=== PATIENT | female | born 1945 | race Caucasian/White ===

== ENCOUNTER 2018-07-06 13:08 | Observation (INO) ==
[2018-07-06] MEDS ORDERED: ASPIRIN CHEW 324 MG PO STA (13:36)
--- NOTE | 2018-07-06 14:03 | XRay Report ---
XR chest 1V portable CLINICAL HISTORY: Chest Pain COMPARISON STUDY: 11/07/2012 FINDINGS: The bones soft tissues and hemidiaphragms are normal. The cardiomediastinal silhouette is n ormal. The lungs are clear. The pulmonary vasculature is normal. IMPRESSION: Negative chest. The above report was generated using voice recognition software. It may contain grammatical, syntax or spelling errors. Electronically signed by: Trent Ventura M.D. 07/06/2018 2:02 PM
[2018-07-06 14:04] LABS: Basophils # (auto) 0.01 K/uL (0-0.2); Basophils % (auto) 0.2 %; Eosinophils # (auto) 0.05 K/uL (0-0.5); Eosinophils % (auto) 1.2 %; Hematocrit (blood only) 36.5 % (37-47); Hemoglobin 12.2 g/dL (12.0-16.0); Immature Granulocytes # (auto) 0.01 K/uL (0.00-0.02); Immature Granulocytes % (auto) 0.2 %; Lymphocytes % (auto) 44.8 %; Mean Corpuscular Hgb Conc 33.4 g/dL (32-36); Mean Corpuscular Volume 86.3 fL (80-100); Mean Platelet Volume 10.4 fL (7.4-10.4); Monocytes # (auto) 0.25 K/uL (0.11-0.59); Monocytes % (auto) 6.2 %; Neutrophils % (auto) 47.4 %; Platelet Count 170 K/uL (130-400); RDW Standard Deviation 47.4 fL (36.4-46.3); Red Blood Count 4.23 M/uL (4.2-5.4); White Blood Count 4.02 K/uL (4.8-10.8)
[2018-07-06 14:17] LABS: Alanine Aminotransferase 28 U/L (12-78); Albumin Level 3.6 gm/dl (3.4-5.0); Aspartate Aminotransferase 25 U/L (15-37); BUN Creatinine Ratio 23.5 (10-20); Blood Urea Nitrogen 30 mg/dl (7-18); Calcium 8.7 mg/dl (8.5-10.1); Carbon Dioxide 25 mmol/L (21-32); Chloride 110 mmol/L (98-107); Creatinine Clr Calc Pharmacy 38.4 ml/min; Est GFR (African American) 47.4; Est GFR (Non-African American) 40.9; Glucose 96 mg/dl (70-99); Potassium 4.2 mmol/L (3.5-5.1); Sodium 140 mmol/L (136-145)
[2018-07-06 14:22] LABS: Alkaline Phosphatase 76 U/L (45-117); Bilirubin,Total 0.4 mg/dl (0.2-1); Globulin 3.5 gm/dl (2.5-4.0); Total Protein 7.1 gm/dl (6.4-8.2); Troponin I < 0.015 ng/ml (0-0.045)
--- NOTE | 2018-07-06 16:30 | History & Physical Report ---
Date of Service July 06, 2018 Assessment & Plan (1) Chest pain: Ongoing issue for months to possibly even years - questionable worsening with exertion. New LBBB on EKG today but negative troponin. Cardiac cath in 2011 negative but no cardiac work-up since then. - Observe on telemetry - repeat EKG in AM and with chest pain. - Serial troponin x 3 - Consult cardiology to consider stress test tomorrow - will make pt NPO after midnight in anticipation of this possibility - Check ECHO - May also have a component of esophageal reflux - consult GI for additional recommendations. 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 (4) Elevated lipase: Unclear significance - pt is having some non-specific GI symptoms but essentially benign abdominal exam and asking to eat - Will repeat in AM - Heart healthy diet for now but will d/c if any abdominal pain, nausea or vomiting (5) Dyslipidemia: On atorvastatin twice a week - unable to tolerate higher dosing due to myalgias - Check lipid panel today - Continue statin (6) Acquired hypothyroidism: - Check TSH with reflexive T4 - Continue levothyroxine at home dose for now (7) History of diabetes mellitus resolved following bariatric surgery: Pt reports resolution since surgery in 2007 - Check A1c this admission since has not been checked since 2018 (5.6 in July 2017) (8) Essential hypertension: BP elevated upon presentation today - Continue home losartan and monitor Plan: Plan - Lashell Liang PA-C: Pt reviewed with collaborating physician, Dr. Cyr. Plan of care discussed and as outlined above. Patient to followed starting tomorrow by Dr. Nash Liang PA-C History of Present Illness Primary Care Provider: PCP - Erendira Knapp DO This is a 73 y/o female with a PMH of hypertension and dyslipidemia who was referred to the ED today from her PCP office where she presented with progressive "gas" and regurgitation as well as intermittent left chest pain. Pt has difficulty quantifying duration of symptoms but reports intermittent left chest pain "for a long time" - it is often associated with "overexertion" but not always. Pain may radiate to left arm or left neck although she may also have pain in these areas independent of the chest pain. The left chest pains are described as "shooting" and only last seconds at a time. She also notes left arm "heaviness" that may occur after exertion and last up to 30-60 minutes. Symptoms may be relieved with rest. She denies associated cough, wheezing, dyspnea, nausea, vomiting. Last night she reports "I didn't feel well " and had "lots of gas" although denies abdominal pain. She reports that she did not sleep well due to symptoms. This morning she noticed increased regurgitation and eructation so she scheduled with PCP. In PCP office, she was noted to have a new LBBB so referred to the ED. ED work-up confirmed the EKG changes but troponin was negative. Pt did have another episode of left chest discomfort in the ED but it resolved without significant intervention and she is currently pain-free. Pt last underwent cardiac work-up in [place] in 2011 with stress test that was apparently abnormal but cardiac cath showing angiographically insignificant CAD. Pt had a history of diabetes for several years but reports this resolved after her gastric bypass surgery in 2007 and she does not take any medications for this at this time. She does check her sugars occasionally at home and reports "they've been good" but did not elaborate further. She reports that she is very active and symptoms have not significantly changed that. 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 Allergies Allergy/AdvReac Type Severity Reaction Status Date / Time BEES Allergy Anaphylaxis Uncoded 07/06/18 15:54 Home Medications Home Medications Medication Instructions Recorded Confirmed Type PNV cmb#95-ferrous fumarate-FA 1 tab PO DAILY 07/06/18 07/06/18 History [] atorvastatin [Lipitor] 10 mg PO MONTHUR 07/06/18 07/06/18 History calcium carbonate [Calcium 600] 600 mg PO DAILY 07/06/18 07/06/18 History cyanocobalamin (vitamin B-12) 500 mcg PO DAILY 07/06/18 07/06/18 History [Vitamin B-12] levothyroxine [Synthroid] 50 mcg PO DAILY 07/06/18 07/06/18 History losartan [Cozaar] 100 mg PO DAILY 07/06/18 07/06/18 History Past Med/Surg History Family History Other No significant family history Social History Current Living Situation: Spouse Other Information That Helps Us Care for You: No Feels Safe at Home: Yes Safety Concerns: Feels Safe At This Time Smoking Status: Never smoker Do You Dip or Chew Tobacco: No Hx Alcohol Use: Yes Alcohol type: wine Alcohol Intake Frequency: holidays/ special occasions only Alcohol Intake Frequency Comment: 1-2 glasses of wine 1- 2 days per week Hx Substance Use: No Beliefs That Will Affect Care: None Tray Drier Required: No Review of Systems All systems reviewed & are unremarkable except as noted in HPI & below Constitutional: no fever, no chills, no sweats, no weakness, no weight loss and no weight gain Eyes: no diplopia, not seeing flashes, no spots in vision and no worsening vision Ear, Nose, Mouth, Throat: + hoarseness ("my voice comes and goes"); no ear pain , no dizziness, no nasal congestion, no sore throat, no dysphagia and no pain with swallowing Respiratory: no cough, no chest congestion, no dyspnea, no hemoptysis and no wheezing Cardiovascular: + chest pain (left, brief, see HPI), + radiating jaw, neck or arm pain (see HPI) and + palpitations (episode of intermittent racing heart within the past few days); no lightheadedness, no syncope and no calf pain Gastrointestinal: + belching, + bloating, + excessive flatulence and + constipation (describes small hard stools at times - has used Miralax in the past); no abdominal pain, no vomiting, no hematemesis, no pain with swallowing, no cramping, no change in bowel habits, no blood in stools and no melena Genitourinary (Female): no dysuria, no urinary frequency, no decreased urination , no hematuria and no flank pain Musculoskeletal: + neck pain (occasional neck pain (mostly on left) and stiffness) and + swelling (of left hand occasionally - attributes to arthritis) ; no myalgia and no muscle weakness Integumentary: no rash, no skin ulcer and no unusual bruising Neurologic: no gait abnormality, no falls, no generalized weakness, no seizure- like activity, no dizziness, no syncope and no headache(s) Physical Exam 2 Vital Signs (Past 24 Hours): Last Vital Signs Temp 36.7 C 07/06/18 13:11 Pulse 57 L 07/06/18 14:03 Resp 18 07/06/18 13:11 BP 185/97 H 07/06/18 13:11 Pulse Ox 97 07/06/18 14:03 Constitutional: WD/WN, vitals as above Eyes: PERRL, conjunctivae normal, anicteric sclerae ENMT: external ear and nose normal, oropharynx normal Neck: trachea midline Respiratory: no respiratory distress and no labored breathing Auscultation : lungs clear to auscultation bilaterally; no rales, no rhonchi and no wheezes Cardiovascular: Rate/Rhythm: regular rate and regular rhythm Heart Sounds: no click, no gallop and no murmur Extremities: normal capillary refill; no calf tenderness and no pedal edema No significant chest wall tenderness to palpation Gastrointestinal (Abdomen): Inspection/Auscultation: normal bowel sounds; abdomen not distended Percussion/Palpation: abdomen soft; abdomen nontender and no guarding Musculoskeletal: no cyanosis or clubbing, extremities motor strength 5/5 Skin: no rashes, warm and dry normal turgor; no jaundice Neurologic: moves all extremities; no focal motor deficits Psychiatric: A+Ox3, euthymic affect Results & Data Laboratory Results Laboratory Results - last 24 hr 07/06/18 07/06/18 13:45 13:45 WBC 4.02 L RBC 4.23 Hgb 12.2 Hct 36.5 L MCV 86.3 MCH 28.8 MCHC 33.4 RDW Std Deviation 47.4 H RDW Coeff of Rocco 15.0 H Plt Count 170 MPV 10.4 Immature Gran % (Auto) 0.2 Neut % (Auto) 47.4 Lymph % (Auto) 44.8 Upson % (Auto) 6.2 Eos % (Auto) 1.2 Baso % (Auto) 0.2 Immature Gran # (Auto) 0.01 Neut # (Auto) 1.90 Lymph # (Auto) 1.80 Upson # (Auto) 0.25 Eos # (Auto) 0.05 Baso # (Auto) 0.01 Sodium 140 Potassium 4.2 Chloride 110 H Carbon Dioxide 25 Anion Gap 5.0 BUN 30 H Creatinine 1.28 H Est Cr Clr Drug Dosing 38.4 Est GFR ( Amer) 47.4 Est GFR (Non-Af Amer) 40.9 BUN/Creatinine Ratio 23.5 H Glucose 96 Calcium 8.7 Total Bilirubin 0.4 AST 25 ALT 28 Alkaline Phosphatase 76 Troponin I < 0.015 Total Protein 7.1 Albumin 3.6 Globulin 3.5 Albumin/Globulin Ratio 1.0 Lipase 456 H Diagnostic Findings CXR 07/06/18 - IMPRESSION: Negative chest. Medications Administered Discontinued Medications Aspirin (Aspirin) 324 mg PO NOW STA Stop: 07/06/18 13:37 Last Admin: 07/06/18 14:02 Dose: 324 mg Code Status & VTE Plan Code Status full resuscitation VTE Prophylaxis Plan VTE Prophylaxis will be ordered: Yes Supervising Physician Co-Signing Physician Notes HISTORY: Record reviewed. Patient interviewed and examined. Care coordinated with Lashell Liang PA-C. Please refer to her documentation for patient's history. Briefly, 73-year-old female with history of hypertension, dyslipidemia, and diabetes. History of cardiac catheterization several years ago which reportedly did not show any significant disease. Presented to ED today with chest pain. Chest pain described as substernal discomfort that radiates to her neck. She has noticed intermittent hoarseness. Chest pain is not exertional nature, although she has some left arm heaviness with activity. No associated shortness of breath, nausea, vomiting, diaphoresis. EXAM: General- no distress Lungs- clear to auscultation; no respiratory distress Cardiovascular- RRR; no murmur; no gallop; no JVD; no pretibial edema Abdomen- + bowel sounds, soft, nontender Extremities- no cyanosis; no calf tenderness Neuro- alert, oriented Skin- warm & dry DATA: Serum troponin less than 0.015. Random glucose 96. Other lab studies as noted. Chest x-ray was unremarkable. EKG performed at 1319 reviewed and demonstrated normal sinus rhythm at 70 / minute, left bundle branch block. Left bundle branch block new compared to tracing performed on 11/07/12. ASSESSMENT AND PLAN: Chest pain as described above. Initial troponin normal. EKG shows sinus rhythm with left bundle branch block, new compared to 2013. Suspect that symptoms are due to esophageal disease, the patient has multiple risk factors for ischemic heart disease and she does have some left arm heaviness with exertion. Check serial troponins. Consult Cardiology. Empiric PPI. Consult GI. Patient has been experiencing intermittent hoarseness which could possibly be secondary to GERD. Outpatient ENT evaluation recommended. Please refer to MARYSE Liang's documentation for discussion of other issues. _ (1) Chest pain Chest pain type: unspecified Ischemic chest pain type: Qualified Code(s): R07.9 - Chest pain, unspecified
[2018-07-06] MEDS ORDERED: NITROGLYCERIN SL 0.4 MG/TAB TAB SL PRN (18:14)
[2018-07-06] MEDS ORDERED: ACETAMINOPHEN 325 MG TAB PO PRN (18:14)
--- NOTE | 2018-07-06 19:41 | Emergency Department Note ---
Entered by Paloma Richardson acting as a scribe for Salas Romero DO History of Present Illness General Chief complaint: Cardiac Assessment Stated complaint: ABNORMAL EKG,CHEST PAIN OFF AND ON Source: patient Mode of arrival: ambulatory Limitations: no limitations History of Present Illness Provider complaint: Chest pain Onset (ago): day(s) 1 Location: chest Radiation: other (left arm ) Severity: moderate Pain Consistency: + intermittent Maximum Pain Intensity: 2 Quality: + sharp Associated symptoms: + denies other symptoms Patient is a 73 year old female presenting to the ED with CP beginning last night. Patient states that she felt ill last night, and began to have intermittent chest pain. She notes pain worsened while at work today, noting she had associated gas. Patient called her PCP, who recommended reporting to ED for further evaluation. Chest pain is described as sharp, and lasting a few minutes in length. She notes that her last episode while on the way to the ED. Patient is also complaining of associated left arm pain, but denies any jaw pain. Pain does worsen with exertion, and improves with breathing. Patient denies any nausea, vomiting, fevers, or any other sx at this time. She shares that she does take medication for thyroid and cholesterol. Patient shares she did have a stress test and catherization in 2011, but both were unremarkable. She lastly denies a history of [place]. Home Medications Home Medications Medication Instructions Recorded Confirmed Type PNV cmb#95-ferrous fumarate-FA 1 tab PO DAILY 07/06/18 07/06/18 History [] atorvastatin [Lipitor] 10 mg PO MONTHUR 07/06/18 07/06/18 History calcium carbonate [Calcium 600] 600 mg PO DAILY 07/06/18 07/06/18 History cyanocobalamin (vitamin B-12) 500 mcg PO DAILY 07/06/18 07/06/18 History [Vitamin B-12] levothyroxine [Synthroid] 50 mcg PO DAILY 07/06/18 07/06/18 History losartan [Cozaar] 100 mg PO DAILY 07/06/18 07/06/18 History Allergies Allergy/AdvReac Type Severity Reaction Status Date / Time BEES Allergy Anaphylaxis Uncoded 07/06/18 15:54 Past Med/Surg History Family History Other No significant family history Social History Current Living Situation: Spouse Other Information That Helps Us Care for You: No Feels Safe at Home: Yes Safety Concerns: Feels Safe At This Time Smoking Status: Never smoker Do You Dip or Chew Tobacco: No Hx Alcohol Use: Yes Alcohol type: wine Alcohol Intake Frequency: holidays/ special occasions only Alcohol Intake Frequency Comment: 1-2 glasses of wine 1- 2 days per week Hx Substance Use: No Beliefs That Will Affect Care: None 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 and A total of 10 systems reviewed and were otherwise negative Physical Exam Vital Signs Vital Signs - 24 hr 07/06/18 13:11 07/06/18 14:03 07/06/18 14:06 Temperature 36.7 C Temperature Source Oral Sepsis Recent Fever Within 48 Hours No Sepsis New/Unexplained Change in Mental Status No Sepsis Action Taken by Nursing No Action Required Pulse Rate 92 H 57 L 66 Pulse Rate [Finger] Pulse Rate from SpO2 Sensor 72 Pulse Rhythm Regular Pulse Rhythm [Finger] Respiratory Rate 18 19 Respiratory Effort / Characteristics Non-Labored Spontaneous Respiratory Depth Normal Respiratory Pattern Regular Blood Pressure 185/97 H Blood Pressure [Left Arm] Blood Pressure Mean 126 Blood Pressure Mean [Left Arm] Blood Pressure Position Sitting Blood Pressure Position [Left Arm] Pulse Oximetry 98 97 99 Oxygen Delivery Method Room Air 07/06/18 14:30 07/06/18 15:00 07/06/18 15:30 Temperature Temperature Source Sepsis Recent Fever Within 48 Hours Sepsis New/Unexplained Change in Mental Status Sepsis Action Taken by Nursing Pulse Rate 75 64 70 Pulse Rate [Finger] Pulse Rate from SpO2 Sensor 60 61 64 Pulse Rhythm Pulse Rhythm [Finger] Respiratory Rate 24 17 19 Respiratory Effort / Characteristics Respiratory Depth Respiratory Pattern Blood Pressure Blood Pressure [Left Arm] Blood Pressure Mean Blood Pressure Mean [Left Arm] Blood Pressure Position Blood Pressure Position [Left Arm] Pulse Oximetry 99 100 98 Oxygen Delivery Method 07/06/18 16:00 07/06/18 16:30 07/06/18 17:00 Temperature Temperature Source Sepsis Recent Fever Within 48 Hours Sepsis New/Unexplained Change in Mental Status Sepsis Action Taken by Nursing Pulse Rate 61 65 Pulse Rate [Finger] 60 Pulse Rate from SpO2 Sensor 59 L 64 Pulse Rhythm Pulse Rhythm [Finger] Respiratory Rate 18 22 17 Respiratory Effort / Characteristics Respiratory Depth Respiratory Pattern Blood Pressure Blood Pressure [Left Arm] 145/75 H Blood Pressure Mean Blood Pressure Mean [Left Arm] 98 Blood Pressure Position Blood Pressure Position [Left Arm] Pulse Oximetry 99 100 99 Oxygen Delivery Method Room Air 07/06/18 17:09 07/06/18 18:15 Temperature 36.9 C Temperature Source Oral Sepsis Recent Fever Within 48 Hours Sepsis New/Unexplained Change in Mental Status Sepsis Action Taken by Nursing Pulse Rate Pulse Rate [Finger] 61 Pulse Rate from SpO2 Sensor Pulse Rhythm Pulse Rhythm [Finger] Regular Respiratory Rate 20 Respiratory Effort / Characteristics Non-Labored Respiratory Depth Normal Respiratory Pattern Regular Blood Pressure Blood Pressure [Left Arm] 142/82 H 159/70 H Blood Pressure Mean Blood Pressure Mean [Left Arm] 102 99 Blood Pressure Position Blood Pressure Position [Left Arm] Sitting Pulse Oximetry 96 Oxygen Delivery Method Room Air GENERAL: Sitting up in bed, alert, well appearing, well nourished, no distress, non-toxic EYE EXAM: normal conjunctiva. OROPHARYNX: no exudate, no erythema, lips, buccal mucosa, and tongue normal and mucous membranes are moist NECK: supple, no nuchal rigidity, no adenopathy, non-tender LUNGS: Clear to auscultation. Normal chest wall mechanics HEART: no murmurs, S1 normal and S2 normal ABDOMEN: abdomen soft, non-tender, normo-active bowel, sounds, no masses, no rebound or guarding. BACK: Back is symmetrical on inspection and there is no deformity, no midline tenderness, no CVA tenderness. SKIN: no rashes and no bruising UPPER EXTREMITIES: upper extremities are grossly normal. LOWER EXTREMITIES: No pitting edema. Calves equal bilterally. NEURO EXAM: Normal sensorium, cranial nerves II-XII grossly intact, normal speech, no gross weakness of arms, no gross weakness of legs. Course Vital signs were reviewed and showed hypertension. The patients medical record was reviewed The above diagnostic studies were performed and reviewed. ED treatments and interventions as stated above. 1328: The patient was evaluated in room C02B. A complete history and physical examination was performed. 1450: Upon reevaluation, the patient is doing well. .I discussed my findings with the patient and she understands and agrees with the treatment plan. Based on the patients age, coexisting illnesses, exam and lab findings the decision to treat as an inpatient was made. 1457: Discussed patient case with Tiff Liang PA-C, who accepts patient for admission. The patient remained stable while under my care. The patient will be evaluated for further management. Administered Medications Discontinued Medications Aspirin (Aspirin) 324 mg PO NOW STA Stop: 07/06/18 13:37 Last Admin: 07/06/18 14:02 Dose: 324 mg Medical Decision Making Differential Diagnosis Differential diagnoses includes but is not limited to acute coronary syndrome, myocardial infarction, pericarditis, pulmonary embolus, aortic dissection, pneumonia, pneumothorax, musculoskeletal, shingles, esophageal. Medical Records Attestation: I reviewed the patient's medical records. Home Medications Current Medication List: was personally reviewed by me Laboratory Data Attestation: I reviewed the patient's lab results. Result diagrams: 07/06/18 13:45 07/06/18 13:45 Lab Results 07/06/18 07/06/18 Range/Units 13:45 13:45 WBC 4.02 L (4.8-10.8) K/uL RBC 4.23 (4.2-5.4) M/uL Hgb 12.2 (12.0-16.0) g/dL Hct 36.5 L (37-47) % MCV 86.3 (80-100) fL MCH 28.8 (25-34) pg MCHC 33.4 (32-36) g/dL RDW Std Deviation 47.4 H (36.4-46.3) fL RDW Coeff of Rocco 15.0 H (11.5-14.5) % Plt Count 170 (130-400) K/uL MPV 10.4 (7.4-10.4) fL Immature Gran % (Auto) 0.2 % Neut % (Auto) 47.4 % Lymph % (Auto) 44.8 % Barnes % (Auto) 6.2 % Eos % (Auto) 1.2 % Baso % (Auto) 0.2 % Immature Gran # (Auto) 0.01 (0.00-0.02) K/uL Neut # (Auto) 1.90 (1.4-6.5) K/uL Lymph # (Auto) 1.80 (1.2-3.4) K/uL Barnes # (Auto) 0.25 (0.11-0.59) K/uL Eos # (Auto) 0.05 (0-0.5) K/uL Baso # (Auto) 0.01 (0-0.2) K/uL Sodium 140 (136-145) mmol/L Potassium 4.2 (3.5-5.1) mmol/L Chloride 110 H (98-107) mmol/L Carbon Dioxide 25 (21-32) mmol/L Anion Gap 5.0 (3-11) BUN 30 H (7-18) mg/dl Creatinine 1.28 H (0.6-1.2) mg/dl Est Cr Clr Drug Dosing 38.4 ml/min Est GFR ( Amer) 47.4 Est GFR (Non-Af Amer) 40.9 BUN/Creatinine Ratio 23.5 H (10-20) Glucose 96 (70-99) mg/dl Calcium 8.7 (8.5-10.1) mg/dl Total Bilirubin 0.4 (0.2-1) mg/dl AST 25 (15-37) U/L ALT 28 (12-78) U/L Alkaline Phosphatase 76 (45-117) U/L Troponin I < 0.015 (0-0.045) ng/ml Total Protein 7.1 (6.4-8.2) gm/dl Albumin 3.6 (3.4-5.0) gm/dl Globulin 3.5 (2.5-4.0) gm/dl Albumin/Globulin Ratio 1.0 (0.9-2) Lipase 456 H (73-393) U/L Imaging Data Radiologist's Impression: XR chest 1V portable CLINICAL HISTORY: Chest Pain COMPARISON STUDY: 11/07/2012 FINDINGS: The bones soft tissues and hemidiaphragms are normal. The cardiomediastinal silhouette is normal. The lungs are clear. The pulmonary vasculature is normal. IMPRESSION: Negative chest. The above report was generated using voice recognition software. It may contain grammatical, syntax or spelling errors. Electronically signed by: Trent Ventura M.D. 07/06/2018 2:02 PM ECG Data Attestation: I personally reviewed and interpreted this ECG as follows: Indication: chest pain Rate (beats per minute): 66 Rhythm: sinus rhythm Findings: + other (normal axis), + LBBB and + ST depression (in inferior and lateral leads) Comparison ECG Date: from (11/07/12) Change: the following changes noted (LBBB and ST changes new) Blood Pressure Blood Pressure Findings: Elevated blood pressure Blood Pressure Disposition: elevated BP felt to be situational MDM Narrative Patient is a 73-year-old female that presents the ER for chest pain located on the left side of her chest associate with some intermittent left arm pain. Symptoms are completely resolved upon presentation. Patient was seen at the PCP and had an EKG done which showed a new left bundle branch block. She was slightly hypertensive in the ER. Labs were obtained and showed no significant leukocytosis or anemia. BMP along with LFTs bilirubin and lipase was fairly unremarkable. Troponin was negative. Chest x-ray was unremarkable. EKG did show left bundle. She was a symptomatically in the ER. Family and patient were updated at bedside discussed with the hospitalist for observation. Discussed with Pt concerning signs and symptoms to watch out for. Pt was instructed to follow up with their PCP and discussed with the patient their option to return to the ED at anytime for persistent or worsening symptoms. The appropriate anticipatory guidance and out-patient management, including indications for return to the emergency department, were explained at length to the patient and understood. Impression & Plan Chest pain, Complete left bundle branch block (LBBB) determined by ECG Discharge Plan Visit Data *Final* Discharge Date/Time: 07/06/18 18:13 Chief Complaint: Cardiac Assessment Stated Complaint: ABNORMAL EKG,CHEST PAIN OFF AND ON ED Provider: Salas Romero Discharge Problem: Chest pain, Complete left bundle branch block (LBBB) determined by ECG Patient Disposition: Admitted As Inpatient Discharge Instructions Interventions: ED Discharge Assessment Last Done: 07/06/18 17:39 The scribe's documentation has been prepared under my direction and personally reviewed by me in its entirety. I confirm that the note above accurately reflects all work, treatment, procedures, and medical decision making performed by me.
[2018-07-06 20:40] LABS: Chol HDL Ratio 3; Cholesterol 175 mg/dl (0-200); HDL Cholesterol 70 mg/dl; LDL Cholesterol Calculated 87 mg/dl; Triglycerides 92 mg/dl (0-150); Troponin I < 0.015 ng/ml (0-0.045); VLDL Cholesterol 18 mg/dl
[2018-07-07 05:26] LABS: Alanine Aminotransferase 25 U/L (12-78); Albumin Level 3.2 gm/dl (3.4-5.0); Alkaline Phosphatase 68 U/L (45-117); Aspartate Aminotransferase 24 U/L (15-37); Bilirubin,Total 0.3 mg/dl (0.2-1); Blood Urea Nitrogen 34 mg/dl (7-18); Calcium 8.4 mg/dl (8.5-10.1); Carbon Dioxide 24 mmol/L (21-32); Chloride 110 mmol/L (98-107); Creatinine Clr Calc Pharmacy 31.6 ml/min; Est GFR (African American) 39.7; Est GFR (Non-African American) 34.3; Globulin 3.1 gm/dl (2.5-4.0); Glucose 86 mg/dl (70-99); Potassium 4.3 mmol/L (3.5-5.1); Sodium 140 mmol/L (136-145); Total Protein 6.3 gm/dl (6.4-8.2); Troponin I < 0.015 ng/ml (0-0.045)
[2018-07-07 05:28] LABS: Basophils # (auto) 0.01 K/uL (0-0.2); Basophils % (auto) 0.3 %; Eosinophils % (auto) 2.5 %; Hematocrit (blood only) 34.5 % (37-47); Hemoglobin 11.5 g/dL (12.0-16.0); Lymphocytes # (auto) 1.96 K/uL (1.2-3.4); Lymphocytes % (auto) 49.6 %; Mean Corpuscular Hgb Conc 33.3 g/dL (32-36); Mean Corpuscular Volume 86.3 fL (80-100); Mean Platelet Volume 10.1 fL (7.4-10.4); Monocytes # (auto) 0.34 K/uL (0.11-0.59); Monocytes % (auto) 8.6 %; Neutrophils # (auto) 1.54 K/uL (1.4-6.5); Platelet Count 148 K/uL (130-400); RDW Coefficient of Variation 14.8 % (11.5-14.5); White Blood Count 3.95 K/uL (4.8-10.8)
[2018-07-07 06:27] LABS: Estimated Average Glucose 128 mg/dl; Hemoglobin A1C 6.1 % (4.5-5.6)
[2018-07-07] MEDS ORDERED: LEVOTHYROXINE SODIUM 50 MCG TABLET PO SCH (06:30)
[2018-07-07] MEDS ORDERED: LOSARTAN POTASSIUM 50 MG TAB PO SCH (09:00)
[2018-07-07] MEDS ORDERED: PANTOprazole 40 MG TAB PO SCH (09:00)
[2018-07-07] MEDS ORDERED: REGADENOSON 0.4 MG/5 ML SYR IV ONE (10:01)
--- NOTE | 2018-07-07 13:01 | Cardiology Consultation ---
Date of Consultation July 07, 2018 Assessment & Plan (1) Chest pain: (2) Complete left bundle branch block (LBBB) determined by ECG: Left bundle branch block, newly recognized, but really of unknown chronicity, as her most recent previous tracing was from several years ago. Cardiac enzymes have been negative on a serial basis. The patient describes dyspepsia present with frequent belching that is nonexertional. Echocardiogram reveals a mild septal wall motion abnormality consistent with left bundle branch block with preserved LVEF. We will proceed with a pharmacologic nuclear stress test which is the test of choice in the setting of left bundle branch block. Further recommendations be forthcoming. History of Present Illness Attending Physician: Ashley Cao DO History of Present Illness Allie Plasencia is a 73 year old female seen in cardiology consultation per the [facility] of Matt[facility] the [facility] of atypical chest pain and newly recognized left bundle branch block. The patient was referred from her primary care provider's office yesterday. She describes frequent belching. She notes that this is not necessarily associated with meals is currently she is without food and she feels that she has this gas and is belching at present. On my interview with her, she does not feel that she has significant exertional symptoms. Past medical history: History of gastric bypass surgery in 2007 Stage III chronic kidney disease. Dyslipidemia for which he takes atorvastatin. Hypothyroidism Family History: She states her sister had a valve surgery but she does not know the specifics. She believes her mother had a heart surgery, but she is unable to determine for me whether it was a valve surgery or a bypass surgery, and she had a stroke afterward Allergies Allergy/AdvReac Type Severity Reaction Status Date / Time BEES Allergy Anaphylaxis Uncoded 07/06/18 15:54 Home Medications Home Medications Medication Instructions Recorded Confirmed Type PNV cmb#95-ferrous fumarate-FA 1 tab PO DAILY 07/06/18 07/06/18 History [] atorvastatin [Lipitor] 10 mg PO MONTHUR 07/06/18 07/06/18 History calcium carbonate [Calcium 600] 600 mg PO DAILY 07/06/18 07/06/18 History cyanocobalamin (vitamin B-12) 500 mcg PO DAILY 07/06/18 07/06/18 History [Vitamin B-12] levothyroxine [Synthroid] 50 mcg PO DAILY 07/06/18 07/06/18 History losartan [Cozaar] 100 mg PO DAILY 07/06/18 07/06/18 History Patient History Family History Other No significant family history Social History Razor Sharpener Required: No Beliefs That Will Affect Care: None Current Living Situation: Spouse Other Information That Helps Us Care for You: No Feels Safe at Home: Yes Safety Concerns: Feels Safe At This Time Smoking Status: Never smoker Hx Alcohol Use: Yes Hx Substance Use: No Review of Systems 10 point review of systems is reviewed and is negative with the exception of that above Physical Exam Vital Signs (Past 24 Hours): Last Vital Signs Temp 37.2 C 07/07/18 11:16 Pulse 69 07/07/18 11:16 Resp 16 07/07/18 11:16 BP 137/78 07/07/18 11:16 Pulse Ox 96 07/07/18 11:16 Physical Exam: General: no acute distress and stated age Eyes: conjunctiva are pink and non-injected, sclera clear Neck: normal jugular venous pulse, no hepatojugular reflux Chest: normal shape and normal respiratory effort Lungs: clear to auscultation and percussion Cardiac Exam: - regular heart sounds, no murmurs, rubs, or gallops, no jugular venous distention Abdomen: abdomen soft, non-tender, no abnormal masses and no hepatosplenomegaly Extremities: no edema and no cyanosis Neuro:awake, coversant, follows commands, no focal motor deficits Psych: appropriate affect and insight. Results & Data Laboratory Results Cardiac Enzymes 07/06/18 07/06/18 07/07/18 Range/Units 13:45 19:51 01:39 AST 25 24 (15-37) U/L Troponin I < 0.015 < 0.015 < 0.015 (0-0.045) ng/ml Lipids 07/06/18 Range/Units 19:51 Triglycerides 92 (0-150) mg/dl Cholesterol 175 (0-200) mg/dl HDL Cholesterol 70 mg/dl Cholesterol/HDL Ratio 3 CBC 07/06/18 07/07/18 Range/Units 13:45 01:39 WBC 4.02 L 3.95 L (4.8-10.8) K/uL RBC 4.23 4.00 L (4.2-5.4) M/uL Hgb 12.2 11.5 L (12.0-16.0) g/dL Hct 36.5 L 34.5 L (37-47) % Plt Count 170 148 (130-400) K/uL Neut # (Auto) 1.90 1.54 (1.4-6.5) K/uL Lymph # (Auto) 1.80 1.96 (1.2-3.4) K/uL [place] # (Auto) 0.25 0.34 (0.11-0.59) K/uL Eos # (Auto) 0.05 0.10 (0-0.5) K/uL Baso # (Auto) 0.01 0.01 (0-0.2) K/uL Comprehensive Metabolic Panel 07/06/18 07/07/18 Range/Units 13:45 01:39 Sodium 140 140 (136-145) mmol/L Potassium 4.2 4.3 (3.5-5.1) mmol/L Chloride 110 H 110 H (98-107) mmol/L Carbon Dioxide 25 24 (21-32) mmol/L BUN 30 H 34 H (7-18) mg/dl Creatinine 1.28 H 1.48 H (0.6-1.2) mg/dl Glucose 96 86 (70-99) mg/dl Calcium 8.7 8.4 L (8.5-10.1) mg/dl AST 25 24 (15-37) U/L ALT 28 25 (12-78) U/L Alkaline Phosphatase 76 68 (45-117) U/L Total Protein 7.1 6.3 L (6.4-8.2) gm/dl Albumin 3.6 3.2 L (3.4-5.0) gm/dl Intake and Output 07/06/18 07/07/18 07/07/18 22:59 06:59 14:59 Intake Total 360 / 360 0 / 360 Balance 360 / 360 0 / 360 Intake: Oral 360 / 360 0 / 360 Other: Other Intake Source npo # Unmeasured Voids 1 Weight 77 kg 76.8 kg Diagnostic Findings EKG performed 07/06/18 at 1319 revealed normal sinus rhythm with left bundle branch block at 66 bpm. QRS duration was 124 ms. When compared to the prior tracing performed November 07, 2012 left bundle branch block is now present. An echocardiogram was performed earlier today and reviewed independently by the undersigned with findings of mild concentric left ventricular hypertrophy. The septal wall motion is consistent with conduction abnormality without other regional wall motion abnormalities, normal LVEF in the range of 55-60%. Mild tricuspid regurgitation was present. Mild aortic valve sclerosis without stenosis was present. Medications Administered Current Inpatient Medications Acetaminophen (Tylenol) 650 mg PO Q4H PRN PRN Reason: Pain or Fever Stop: 08/05/18 18:13 Atorvastatin Calcium (Lipitor) 10 mg PO MoTh@0900 [facility] Stop: 08/07/18 08:59 Levothyroxine Sodium (Synthroid) 50 mcg PO DAILYBB [facility] Stop: 08/06/18 06:29 Last Admin: 07/07/18 06:00 Dose: 50 mcg Documented by: Losartan Potassium (Cozaar) 100 mg PO DAILY [facility] Stop: 08/06/18 08:59 Last Admin: 07/07/18 09:10 Dose: 100 mg Documented by: Nitroglycerin (Nitrostat) 0.4 mg SL UD PRN PRN Reason: Chest Pain Stop: 08/05/18 18:13 Pantoprazole Sodium (Protonix) 40 mg PO QAM [place] Stop: 07/10/18 09:01 Last Admin: 07/07/18 09:07 Dose: 40 mg Documented by: (1) Chest pain Chest pain type: unspecified Qualified Code(s): R07.9 - Chest pain, unspecified
--- NOTE | 2018-07-07 13:36 | Gastrointestinal Consultation ---
Date of Consultation July 07, 2018 Assessment & Plan (1) Chest pain: (2) GERD (gastroesophageal reflux disease): (3) S/P gastric bypass: Pt is a 73 y/o female currently getting evaluated for L sided chest pain and new finding of LBBB on EKG. She reports chronic symptoms of eructations, regurgitations w/o abd pain, n/v, dysphagia or odynophagia. Does have hx of gastric bypass in 2007 (Dr. Galicia from [facility]) but denies uses of NSAIDs, ASA, tobacco products. - I think that she eventually would benefit from EGD evaluation but won't recommend this until she has completed her cardiac workup and cleared from cardiology standpoint. Non urgent EGD and can be done in outpt setting after DC - Consider esophagram while inpt if further evaluation needed to r/o GERD, hiatal hernia. But again her cardiac workup takes priority - Protonix 40mg daily. Supervising Physician Co-Signing Physician Notes I have seen and examined the patient and discussed the management with SUSIE Wilks. 73 yo fm with a history of prior rygb, hl, solitary kidney with mild ckdz, for which GI is consulted for reflux, regurgitation. She is currently undergoing a cardiac work-up given new findings of LBBB, nuclear stress test pending today. Would try a trial of PPI (Protonix 40 mg) once daily. Agree with esophagram while inpatient given current cardiac issues. Outpatient EGD likely. Agree with assessment and plan as per Danii's documentation. History of Present Illness Reason for Consultation: Chest pain ? reflux Requesting Physician: Dr. Ashley Cao Attending Physician: Dr. Mis Pool History of Present Illness Pt is a 73 y/o female w PMHx of HTN, dyslipidemia, hypothyroidism who was referred by PCP for intermittent L chest pain sometimes w radiation to L arm and new finding of L bundle branch block in EKG. Repeat EKG confirmed changes but negative troponin. She just had echocardiogram this AM which showed septal motion abnormality and mild TR, AV stenosis w/o sclerosis. GI consulted as pt had been c/o regurgitation and eructation which she report had been going on for years. She has hx of gastric bypass in 2007. Denies NSAIDs, ASA, anticoagulation, tobacco. ETOH intake 2 glasses of wine in weekends. She denies any overt dysphagia, or painful swallowing, n/v, abd pain, weight loss. She does notice associated voice loss and hoarseness at times. Remembers having EGD >30 yrs ago but cannot tell me for what reason. Allergies Allergy/AdvReac Type Severity Reaction Status Date / Time BEES Allergy Anaphylaxis Uncoded 07/06/18 15:54 Home Medications Home Medications Medication Instructions Recorded Confirmed Type PNV cmb#95-ferrous fumarate-FA 1 tab PO DAILY 07/06/18 07/06/18 History [] atorvastatin [Lipitor] 10 mg PO MONTHUR 07/06/18 07/06/18 History calcium carbonate [Calcium 600] 600 mg PO DAILY 07/06/18 07/06/18 History cyanocobalamin (vitamin B-12) 500 mcg PO DAILY 07/06/18 07/06/18 History [Vitamin B-12] levothyroxine [Synthroid] 50 mcg PO DAILY 07/06/18 07/06/18 History losartan [Cozaar] 100 mg PO DAILY 07/06/18 07/06/18 History Patient History Medical History Solitary kidney, acquired (Chronic) Surgically absent after childhood trauma when she fell off a swing CKD (chronic kidney disease), stage III (Chronic) Intestinal postoperative nonabsorption (Chronic) Dyslipidemia (Chronic) Acquired hypothyroidism (Chronic) Constipation by delayed colonic transit (Chronic) Generalized osteoarthrosis (Chronic) History of diabetes mellitus resolved following bariatric surgery (Resolved) Essential hypertension Surgical History History of appendectomy (Chronic) History of arthroplasty of right shoulder (Chronic) x2 - 2004, 2003 History of gastric bypass (Chronic) History of nephrectomy, unilateral (Chronic) left History of thyroid surgery (Chronic) removal of benign nodule 1983 History of total abdominal hysterectomy (Chronic) Family History Other No significant family history Social History Rag Sorter And 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 Physical Exam Vital Signs (Past 24 Hours): Last Vital Signs Temp 37.2 C 07/07/18 11:16 Pulse 69 07/07/18 11:16 Resp 16 07/07/18 11:16 BP 137/78 07/07/18 11:16 Pulse Ox 96 07/07/18 11:16 Constitutional: WD/WN, vitals as above well groomed, cooperative and comfortable Eyes: PERRL, conjunctivae normal, anicteric sclerae ENMT: external ear and nose normal, oropharynx normal Respiratory: normal respiratory effort, lungs clear to auscultation Cardiovascular: RRR, no murmur, no edema Gastrointestinal (Abdomen): normal bowel sounds, soft, nontender, no hepatosplenomegaly Skin: no rashes, warm and dry no jaundice Neurologic: Motor/Sensory: no asterixis Psychiatric: A+Ox3, euthymic affect Lymphatic: no lymphedema Results & Data Laboratory Results Laboratory Results - last 72 hr 07/06/18 07/06/18 07/06/18 13:45 13:45 19:51 WBC 4.02 L RBC 4.23 Hgb 12.2 Hct 36.5 L MCV 86.3 MCH 28.8 MCHC 33.4 RDW Std Deviation 47.4 H RDW Coeff of Rocco 15.0 H Plt Count 170 MPV 10.4 Immature Gran % (Auto) 0.2 Neut % (Auto) 47.4 Lymph % (Auto) 44.8 [place] % (Auto) 6.2 Eos % (Auto) 1.2 Baso % (Auto) 0.2 Immature Gran # (Auto) 0.01 Neut # (Auto) 1.90 Lymph # (Auto) 1.80 [place] # (Auto) 0.25 Eos # (Auto) 0.05 Baso # (Auto) 0.01 Sodium 140 Potassium 4.2 Chloride 110 H Carbon Dioxide 25 Anion Gap 5.0 BUN 30 H Creatinine 1.28 H Est Cr Clr Drug Dosing 38.4 Est GFR ( Amer) 47.4 Est GFR (Non-Af Amer) 40.9 BUN/Creatinine Ratio 23.5 H Glucose 96 POC Glucose Estimat Average Glucose 128 Hemoglobin A1c 6.1 H Calcium 8.7 Total Bilirubin 0.4 AST 25 ALT 28 Alkaline Phosphatase 76 Troponin I < 0.015 Total Protein 7.1 Albumin 3.6 Globulin 3.5 Albumin/Globulin Ratio 1.0 Triglycerides Cholesterol LDL Cholesterol, Calc VLDL Cholesterol, Calc HDL Cholesterol Cholesterol/HDL Ratio Lipase 456 H TSH 07/06/18 07/06/18 07/07/18 19:51 20:40 01:39 WBC RBC Hgb Hct MCV MCH MCHC RDW Std Deviation RDW Coeff of Rocco Plt Count MPV Immature Gran % (Auto) Neut % (Auto) Lymph % (Auto) [place] % (Auto) Eos % (Auto) Baso % (Auto) Immature Gran # (Auto) Neut # (Auto) Lymph # (Auto) [place] # (Auto) Eos # (Auto) Baso # (Auto) Sodium 140 Potassium 4.3 Chloride 110 H Carbon Dioxide 24 Anion Gap 6.0 BUN 34 H Creatinine 1.48 H Est Cr Clr Drug Dosing 31.6 Est GFR ( Amer) 39.7 Est GFR (Non-Af Amer) 34.3 BUN/Creatinine Ratio 23.0 H Glucose 86 POC Glucose 122 H Estimat Average Glucose Hemoglobin A1c Calcium 8.4 L Total Bilirubin 0.3 AST 24 ALT 25 Alkaline Phosphatase 68 Troponin I < 0.015 < 0.015 Total Protein 6.3 L Albumin 3.2 L Globulin 3.1 Albumin/Globulin Ratio 1.0 Triglycerides 92 Cholesterol 175 LDL Cholesterol, Calc 87 VLDL Cholesterol, Calc 18 HDL Cholesterol 70 Cholesterol/HDL Ratio 3 Lipase 370 TSH 3.090 07/07/18 01:39 WBC 3.95 L RBC 4.00 L Hgb 11.5 L Hct 34.5 L MCV 86.3 MCH 28.8 MCHC 33.3 RDW Std Deviation 47.0 H RDW Coeff of Rocco 14.8 H Plt Count 148 MPV 10.1 Immature Gran % (Auto) 0.0 Neut % (Auto) 39.0 Lymph % (Auto) 49.6 [place] % (Auto) 8.6 Eos % (Auto) 2.5 Baso % (Auto) 0.3 Immature Gran # (Auto) 0.00 Neut # (Auto) 1.54 Lymph # (Auto) 1.96 [place] # (Auto) 0.34 Eos # (Auto) 0.10 Baso # (Auto) 0.01 Sodium Potassium Chloride Carbon Dioxide Anion Gap BUN Creatinine Est Cr Clr Drug Dosing Est GFR ( Amer) Est GFR (Non-Af Amer) BUN/Creatinine Ratio Glucose POC Glucose Estimat Average Glucose Hemoglobin A1c Calcium Total Bilirubin AST ALT Alkaline Phosphatase Troponin I Total Protein Albumin Globulin Albumin/Globulin Ratio Triglycerides Cholesterol LDL Cholesterol, Calc VLDL Cholesterol, Calc HDL Cholesterol Cholesterol/HDL Ratio Lipase TSH Diagnostic Findings CXR negative. (1) Chest pain Chest pain type: unspecified Qualified Code(s): R07.9 - Chest pain, unspecified
--- NOTE | 2018-07-07 15:16 | Myocardial Perfusion Study ---
Date of Service July 07, 2018 Myocardial Perfusion Study [facility] Myocardial Perfusion Study Report Procedure: 1. Myocardial perfusion study performed in multiple views/images 2. Lexiscan pharmacologic stress ECG Indications: 1. Chest discomfort, atypical for angina 2. Abnormal EKG, with findings of left bundle branch block Ordering physician: Jae Tejada DO Procedural details: For the stress portion of the study, Lexiscan 0.4 mg was intravenously administered followed by a saline flush. This was followed by 31.9 mCi of technetium 99m Cardiolite, injected at 07/07/18 on 1330. 30 minutes following the injection, imaging of the heart was performed in multiple projections. For the rest portion of the study, 10.8 mCi technetium 99m Cardiolite was injected intravenously at 11:40 AM on 07/07/18. 1 hour following the injection, imaging of the heart was performed in the same projections. Lexiscan stress ECG: Resting ECG demonstrated: Sinus rhythm with left bundle branch block at 62 bpm Maximum heart rate: 96 bpm Maximal, age-predicted heart rate: 66 % Resting blood pressure: 182/86 mmHg Maximum blood pressure: 182/[address] changes: None Arrhythmia: Occasional premature atrial complexes Symptoms: No symptoms suggestive of angina induced Findings: Rotating raw imaging demonstrated no significant lung uptake. There is no significant motion artifact. Heart size appeared normal after stress and on the resting images with no evidence of transit ischemic dilatation. Myocardial perfusion demonstrated normal perfusion on both the stress and rest images. Ejection fraction: 67 % Wall motion: Normal No significant transient ischemic dilation. Impression: Normal pharmacologic nuclear stress test with no evidence of ischemia or infarction. Resting hypertension was present at baseline and persisted throughout the test. EKG response was nondiagnostic due to the underlying left bundle branch block.
--- NOTE | 2018-07-07 18:03 | Discharge Summary ---
Date of Service July 07, 2018 Admission HPI Per Admitting Provider This is a 73 y/o female with a PMH of hypertension and dyslipidemia who was referred to the ED today from her PCP office where she presented with progressive "gas" and regurgitation as well as intermittent left chest pain. Pt has difficulty quantifying duration of symptoms but reports intermittent left chest pain "for a long time" - it is often associated with "overexertion" but not always. Pain may radiate to left arm or left neck although she may also have pain in these areas independent of the chest pain. The left chest pains are described as "shooting" and only last seconds at a time. She also notes l eft arm "heaviness" that may occur after exertion and last up to 30-60 minutes. Symptoms may be relieved with rest. She denies associated cough, wheezing, dyspnea, nausea, vomiting. Last night she reports "I didn't feel well" and had "lots of gas" although denies abdominal pain. She reports that she did not sleep well due to symptoms. This morning she noticed increased regurgitation and eructation so she scheduled with PCP. In PCP office, she was noted to have a new LBBB so referred to the ED. ED work-up confirmed the EKG changes but troponin was negative. Pt did have another episode of left chest discomfort in the ED but it resolved without significant intervention and she is currently pain-free. Pt last underwent cardiac work-up in [place] in 2011 with stress test that was apparently abnormal but cardiac cath showing angiographically insignificant CAD. Pt had a history of diabetes for several years but reports this resolved after her gastric bypass surgery in 2007 and she does not take any medications for this at this time. She does check her sugars occasionally at home and reports "they've been good" but did not elaborate further. She reports that she is very active and symptoms have not significantly changed that. 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 Admission Exam Per Admitting Provider WD/WN, vitals as above Eyes: PERRL, conjunctivae normal, anicteric sclerae ENMT: external ear and nose normal, oropharynx normal Neck: trachea midline Respiratory: no respiratory distress and no labored breathing Auscultation: lungs clear to auscultation bilaterally; no rales, no rhonchi and no wheezes Cardiovascular: Rate/Rhythm: regular rate and regular rhythm Heart Sounds: no click, no gallop and no murmur Extremities: normal capillary refill; no calf tenderness and no pedal edema No significant chest wall tenderness to palpation Gastrointestinal (Abdomen): Inspection/Auscultation: normal bowel sounds; abdomen not distended Percussion/Palpation: abdomen soft; abdomen nontender and no guarding Musculoskeletal: no cyanosis or clubbing, extremities motor strength 5/5 Skin: no rashes, warm and dry normal turgor; no jaundice Neurologic: moves all extremities; no focal motor deficits Psychiatric: A+Ox3, euthymic affect Principal Diagnosis Atypical chest pain LBBB Discharge Data Allergies Allergy/AdvReac Type Severity Reaction Status Date / Time BEES Allergy Anaphylaxis Uncoded 07/06/18 15:54 Consultations 07/06/18 14:57 ED Decision to Admit Stat 07/06/18 16:03 Consult Cardiology Routine 07/06/18 19:12 Consult Gastroenterology Routine Ordered Studies 07/08/18 08:00 FL upper GI and ba swallow Routine Hospital Course (1) Chest pain: (2) Complete left bundle branch block (LBBB) determined by EC-year-old female presented to the ER with atypical chest pain and newly recognized left bundle branch block after being sent from her primary care physician's office. Serial troponins were drawn and negative EKG revealed no rmal sinus rhythm with left bundle branch block at 66 bpm. Echocardiogram revealed mild concentric left ventricular hypertrophy with septal wall motion consistent with conduction abnormality without other regional wall motion abnormalities and a normal ejection fraction in the range of 55-60%. She was admitted to the hospital and cardiology was consulted. A pharmacologic nuclear stress test was recommended in the setting of left bundle branch block. This was negative for inducible ischemia with normal stress and rest perfusion. Hypertension was noted during the test. The stress test was consistent with a low risk of underlying hemodynamically significant coronary heart disease. Routine cardiology follow-up was recommended at least on an annual basis for follow-up of a left bundle branch block. Regarding hypertension treatment it was recommended to consider adding a diuretic or calcium channel easton such as amlodipine rather than an AV shirley easton if additional blood pressure control was deemed necessary in the future. Regarding her chest pain this was thought possibly secondary to acid reflux. She was prescribed pantoprazole on discharge and recommended for close primary care follow-up. At time of discharge she was hemodynamically stable and afebrile. She was tolerating p.o. and mentating and ambulating Total Time Total Time Spent Total Time Spent (In Minutes): 60 Total Time Includes: Examination of the Patient, Discharge Planning, Medication Reconciliation and Communication With Other Providers Discharge Plan Discharge Items Patient Disposition: Home - Self-Care Reason For Visit: CHEST PAIN Discharge Diagnosis: atypical chest pain Left bundle branch block Condition: Good Discharge Goals: Decrease discomfort and Learn about illness Activity: Resume your previous activity Non-emergency contact: Primary Care Provider Call non-emergency contact if: you have any medication questions, your symptoms worsen, your pain is not controlled, your pain is worsening and you have a fever Follow-up/Referrals: Erendira Knapp DO [Primary Care Provider] - Diet: Regular Addtl Provider Instructions: Please take all medications as instructed on discharge list below. It is recommended that you follow-up with [facility] as outpatient for endoscopic evaluation. Please contact them for appointment. It is recommended that you follow-up with your primary care provider within 1 week of discharge. Someone will contact you from our staff in the morning regarding this time and date. Your blood pressure was elevated while in the hospital. It is important that this is monitored by her outpatient primary care provider in the event medications need to be adjusted. It is recommended that you follow-up with [facility] as outpatient for endoscopic evaluation. Please contact them for appointment. It is recommended that you follow-up with your primary care provider within 1 week of discharge. Someone will contact you from our staff in the morning regarding this time and date. Your blood pressure was elevated while in the hospital. It is important that this is monitored by her outpatient primary care provider in the event medications need to be adjusted. Your stress test was consistent with a low risk of underlying coronary artery disease. However, you do have a left bundle branch block with preserved ejection fraction, which will require annual cardiology follow-up as outpatient. It was a pleasure taking care of you! Please call if you have any questions or problems. You can reach a [facility] Hospitalist on duty at [facility] 24 hours a day by calling [phone]. Take care of yourself. Ashley Cao, DO [facility] Hospitalist Prescriptions: New pantoprazole 40 mg Tablet,Delayed Release (Dr/Ec) 40 mg PO QAM Qty: 30 RF: 3 Continued atorvastatin [Lipitor] 10 mg tablet 10 mg PO MONTHUR RF: 0 calcium carbonate [Calcium 600] 600 mg calcium (1,500 mg) Tablet 600 mg PO DAILY RF: 0 cyanocobalamin (vitamin B-12) [Vitamin B-12] 500 mcg Tablet 500 mcg PO DAILY RF: 0 levothyroxine [Synthroid] 50 mcg tablet 50 mcg PO DAILY RF: 0 losartan [Cozaar] 100 mg tablet 100 mg PO DAILY RF: 0 PNV cmb#95-ferrous fumarate-FA [] 28 mg iron- 800 mcg Tablet 1 tab PO DAILY RF: 0 Stand-Alone Forms: My [facility], Work/School Release (Inpt) Krames/Other Patient Handouts: Pantoprazole Sodium Oral suspension, Angina, GERD Discharge Orders: Discharge Order (Routine); Ordered 07/07/18 Ordered By: Ashley Cao Admission Data Admit Date/Time: 07/06/18 16:03 Attending Provider: Ashley Cao Admit Provider: Paul Cyr Primary Care Provider: Erendira Knapp Other Providers: Jae Tejada ; Paul Cyr ; Mis Pool Service: Telemetry Other Interventions: Discharge Summary Assessment (RN) Last Done: 07/07/18 18:02 DC Date/Time DO NOT enter until pt leaves facility: 07/07/18 18:54
[2018-07-08] MEDS ORDERED: ATORVASTATIN 10 MG TAB PO SCH (09:00)
== END 2018-07-07 18:54 | disposition home or self-care (01) ==
LOC: ED 13:08 → 2S 13:08

== ENCOUNTER 2023-10-18 08:59 | Inpatient (IN) ==
--- OUTSIDE RECORDS SUMMARY | 2023-10-18 09:05 | External Medical Summary | Summary of Care ---
Author Name Unknown Organization [facility] Address [address] [facility] [place] [address] Phone [phone] Care Team Providers Care Deep Sea Diver Name Role Phone Agustín Sin MD Primary Care Provide r Reason for Visit * Reason Onset Date Comments Advice 09/28/2023 Encounter Details Date Type Department Care Team (Late st Contact Info) Description 09/28/2023 Telephone Family Medicine [address] [place] [phone] Agustín Sin MD [address] [place] [address] [place] [address] Advice Allergies Active Allergy Reactions Criticality Noted Date Comments Lucas Inhibitors 08/14/2003 cough Bee Venom Anaphylaxis High 08/16/2013 Hydrochlorothiazide Medium 11/19/2005 Hypercalcemia And muscle cramps Nizatidine 12/03/2000 leg cramps documented as of this encounter (statuses as of 09/30/2023) Medications Medication Sig Dispensed Refills Start Date End Date Status MIRALAX PO POWDIndications:Cons tipation due to slow transit Dissolve one heaping tablespoon in 8 ounces of water or juice - one dose twice a day as needed for constipation- TAKES NEEDED 1 Bottle 0 06/07/2013 Active MV-Min-Fe Fum-FA-DHA ( 1) 30-0.975-200 MG Capsule Take 1 Cap by mouth daily. Active Cyanocobalamin (VITAMIN B 12) 500 MCG TABS Take 2,500 mcg by mouth. Active Magnesium 250 MG Oral Tablet Take 1 Tablet by mouth in the morning. Active Calcium Carbonate 600 MG Oral Tablet Take 1 Tablet by mouth in the morning. Active Losartan Potassium 100 MG Oral Tablet (Cozaar)Indications: HTN, goal below 140/90 TAKE ONE TABLET BY MOUTH EVERY MORNING 100 Tablet 3 03/18/2023 4 Active Famotidine 40 MG Oral Tablet (Pepcid) Take 1 Tablet by mouth in the morning. 90 Tablet 3 05/07/2023 Active Atorvastatin Calcium 10 MG Oral Tablet (Lipitor)Indications :Dyslipidemia, goal LDL below 100 TAKE ONE TABLET BY MOUTH TWICE A WEEK 26 Tablet 1 06/18/2023 5 Active Levothyroxine Sodium 50 MCG Oral Tablet (Levoxyl)Indications :Acquired hypothyroidism TAKE ONE AND ONE-HALF TABLETS BY MOUTH ON THURSDAY AND THURSDAY, THEN TAKE ONE TABLET ALL OTHER DAYS 110 Tablet 1 09/19/2023 5 Active Diclofenac Sodium 1 % External Gel (Voltaren)Indication s:Pain in other joint APPLY A PEA SIZE AMOUNT TOPICALLY TO AFFECTED AREA(S) OF PAINFUL AREA DAILY NEEDED 150 g 3 09/29/2022 4 documented as of this encounter (statuses as of 09/30/2023) Active Problems Problem Noted Date Diagnosed Date Prediabetes 08/17/2023 Overview: Per Prediabetes protocol Hyperlipidemia 07/21/2023 Primary open-angle glaucoma, right eye, severe s tage 07/14/2022 Chronic kidney disease, stage 3b 08/26/2021 Mild tricuspid regurgitation 05/06/2021 Overweight (BMI 25.0-29.9) 01/31/2019 LBBB (left bundle branch block) 07/13/2018 Gastroesophageal reflux disease with esophagitis 07/13/2018 Esophageal dysphagia 07/13/2018 Advance directive on file 06/17/2017 Seasonal allergic rhinitis due to pollen 018 S/P gastric bypass 06/17/2017 Overview: RYGB Acquired hypothyroidism 01/16/2015 Constipation due to slow transit 05/30/2013 DYSLIPIDEMIA, GOAL LDL BELOW 100 04/17/2009 Overview: Per Lipid Taxonomy. HTN, goal below 140/90 03/16/2009 Overview: Modified per HTN Taxonomy. Solitary kidney, acquired 06/23/2008 Hypertensive kidney disease with stage 3b chronic kidney disease 03/21/2008 EMERY RESEARCH OTHER*[id number] 08/31/2007 GENERAL OSTEOARTHROSIS documented as of this encounter (statuses as of 09/30/2023) Resolved Problems Problem Noted Date Diagnosed Date Resolved Date Prediabetes 05/19/2022 03/26/2023 Overview: Per Prediabetes protocol Obesity, Class I, BMI 30.0-3 4.9 (see actual BMI) 06/17/2017 01/31/2019 Neurogenic claudication due to lumbar spinal stenosis 08/09/2015 12/08/2016 Lumbar spinal stenosis 08/09/201506/17 Hypertension goal BP (blood pressure) < 140/80 05/01/2014 05/30/2014 Impaired fasting glucose 04/23/201402/2018 Degenerative disc disease, cervical 12/28/2013 08/05/2016 Leg cramps, sleep related 04/23/2010 Degeneration of lumbosacral intervertebral disc 04/23/2010 06/17/2017 Postgastric surgery syndrome 12/25/2009 06/17/2017 Overview: ICD-10 update of inactive term HTN, goal below 130/80 06/06/200905/01 Overview: Modified per HTN Taxonomy. DM type 2 causing renal disease 03/08/2009 12/18/2009 Overview: Per Diabetes Taxonomy. Type 2 diabetes mellitus wit h hemoglobin A1c goal of less than 7.0% 03/08/2009 12/18/2009 Overview: Per Diabetes Taxonomy. ICD-10 update of inactive term Vitamin D deficiency 01/04/2009 010 Proteinuria 01/04/2009 12/18/2009 Other iron deficiency anemia 01/04/2009 02/17/2009 Overview: ICD-10 update of inactive term Abnormal results of liver function studies 10/10/2008 12/18/2009 ADVANCE DIRECTIVE INFORMATION 06/23/2008 06/17/2017 Overview: Yes, Patient instructed to provide copy of advance directive for provider to review and to be scanned into Electronic Medical Record Postmenopausal atrophic vaginitis 05/16/2008 06/17/2017 Type 2 diabetes mellitus wit h hemoglobin A1c goal of less than 7.0% 03/21/2008 03/08/2009 Overview: Per Diabetes Taxonomy. ICD-10 update of inactive term Intestinal postoperative nonabsorption 10/05/2007 07/14/2022 Anemia 09/30/2007 02/17/2009 Dysuria 09/27/2007 02/17/2009 Hypovolemia 09/25/2007 11/01/2007 Other allergic rhinitis 08/21/200711/2017 Overview: ICD-10 update of inactive term ACQUIRED HYPOTHYROID NEC 12/10/200612/2014 Morbid obesity, BMI not known 09/09/2006 02/08/2008 LOC PRIM [id number] 06/01/200610/10 Venous insufficiency 11/19/2005 018 CERVICAL DISC DEGEN 07/23/2005 06/17/19 18 NEPHROPATHY -(NO MENTION ACU TE/DIRECTOR CRAFT CENTER DIABETIC (250.4=) 04/19/2005 06/17/2017 HYPERTENSIVE RENAL DISEASE B ENIGN( With renal failure) 04/19/2005 08/18/2007 Rotator cuff rupture 08/18/2003 008 ROTATOR CUFF SYND NOS 06/07/20032007 Enthesopathy of hip 06/07/2003 08/02/19 08 Carpal tunnel syndrome 08/24/200206/17 DM type 2, not at goal 03/21 BENIGN NEOPLASM LG BOWEL 11/2017 BENIGN HYPERTENSION 03/16/20 09 Overview: Modified per HTN Taxonomy. DIAB RENAL MANIF ADULT 03/08 Overview: Per Diabetes Taxonomy. Acute peptic ulcer, unspecif ied site, without mention of hemorrhage, perforation, or obstruction 08/02/2007 Mixed dyslipidemia 9 Overview: Per Lipid Taxonomy. Proteinuria 06/17/2017 Gastroparesis 06/17/2017 Disorder of bone and cartilage 01/15/2018 Other chronic nonalcoholic liver disease 12/18/2009 Overview: FATTY INFILTRATION LIVER documented as of this encounter (statuses as of 09/30/2023) Immunizations Name Administration Dates Next Due COVID-19 mRNA, LNP-s, No Pre serve, 2-Dose Series (Pfizer) 03/20/2021,08/09/2020,07/05/2020 PPD 07/23/2005 Pneumococcal Conjugate Vacc, 13 Valent (Prevnar) 10/30/2014 Pneumococcal Polysaccharide PPV23 (Pneumovax) 03/07/2010 Season Influenza, Quad, PF, Adjuvanted, 65+ Yrs, IM (FLUAD) 01/03/2020 Seasonal Influenza, PF, 6 M & above, IM , (FluLaval or Fluzone) 01/31/2019,01/15/2018,01/30/2017 Seasonal Influenza, Quadriva lent Hd (Fluzone Hd) 03/05/2023 Seasonal Influenza, Quadriva lent, No Preserve, IM 02/26/2016,05/02/2015 Seasonal Influenza, Split, I IV3, With Preserve, Inj 05/01/2014,02/27/2013,01/29/2011,03/07,02/17/2009,03/21/2008,03/18/2007 ,02/18/2006 Seasonal Influenza, Trivalen t, Adjuvanted, 65+ yrs 03/20/2021,01/03/2020 TDAP (age 10 and older)(Boostrix) 01/15/2018 TDAP (age 11 and older)(Adacel) 12/07/2007 Varicella Zoster Vaccine (Adult) 02/28/2017 Zoster Vaccine Recombinant (Shingrix) 11/09/2019 ,07/06/2019 documented as of this encounter Social History Tobacco Use Types Packs/Day Years Used Date Smoking Tobacco: Former Cigarettes 1 30 1 966 - 1995 Smokeless Tobacco: Never Alcohol Use Standard Drinks/Week Comments Yes 1 (1 standard drink = 0.6 oz pure alcohol) 1-2 glasses of wine per weekend PHQ-2 Answer Date Recorded PHQ Adult Total Score 0 12/11/2022 Hunger Vital Sign Answer Date Recorded Within the past 12 months, y ou worried that your food would run out before you got the money to buy more. Never true 12/12/19 23 Within the past 12 months, t he food you bought just didn't last and you didn't have money to get more. Never true 12/11/2022 Sex and Gender Information Value Date Recorded Sex Assigned at Female 11/23/2020 9:24 AM EDT Gender Identity Female 11/23/2020 9:24 AM EDT Sexual Orientation Straight 11/23/2020 9: 24 AM EDT Job Start Date Occupation Industry Not on file Not on file Not on file documented as of this encounter Miscellaneous Notes * Telephone Encounter - Lisseth Bal CMA - 09/29/2023 3:32 PM EDT She had a CT scan that she already got the results of but she still gets significan pain in the right side of her back. She is concerned that it may be her gallbladder and wants your opinion. When she eats anything greasy, roy, eggs the pain is worse. Anything "heavy". * Telephone Encounter - Lizzy Morgan OSA - 09/28/2023 1:26 PM EDT Allie called in on my direct line, she would like Dr. Cee to call her at [phone] documented in this encounter Plan of Treatment Upcoming Encounters Date Type Department Care Team (Late st Contact Info) Description 10/23/2023 3:00 PM EDT Office Visit Nephrology [address] [place] [phone] Basilia Bernal MD [address] [place] [address] 11/26/2023 10:20 AM EDT Office Visit Dermatology [facility] [address] [place] [address] Neda Davis PA-C [address] [place] [phone] 12/15/2023 9:00 AM EDT Nurse Only Ancillary [address] [place] [address] Jerod, Nurse Annual [address] [place] [address] 01/01/2024 9:00 AM EDT Office Visit Gastroenterology, [facility] [address] [place] [address] Tiarra Acosta CRNP [address] [place] [id number] 02/05/2024 10:40 AM EDT Office Visit Family Medicine [address] [place] [phone] Agustín Sin MD [address] [place] [address] [place] [address] Scheduled Procedures Name Priority Associated Diagnoses Date/Ti me COLONOSCOPY FLEXIBLE PROXIMA L DIAGNOSTIC Recall History of colon polyps Family history of colon cancer Health Maintenance Due Date Last Done Comments COVID-19 Vaccine ( season) 2023 03/20/2021, 08/09/2020, 07/05/2020 Depression Screening 12/12/2023 12/11/2022 Albumin/Creatinine Ratio 01/01/2024 023, 05/07/2022, 09/30/2021, Additional history exists CKD PHOS USE SMARTSET 64348 03/05/2024 1010/2022, 05/07/2022, 09/30/2021, Additional history exists GFR 03/16/2024 09/14/2023, 07/09, 05/07/2023, Additional history exists CKD HGB USE SMARTSET 44806 05/07/202405/07, 05/07/2023, 09/29/2022, Additional history exists DXA Scan 05/21/2024 05/21/2021, 05/11, 10/07/2017, Additional history exists HbA1c 07/20/2024 07/21/2023, 04/11, 07/16/2017, Additional history exists TSH 07/20/2024 07/21/2023, 09/09, 07/07/2022, Additional history exists Colonoscopy 12/09/2024 12/09/2021, 08/0 05/2021, 10/29/2018, Additional history exists DTaP,Tdap,and Td Vaccines (3 - Td or Tdap) 01/16/2028 01/15/2018, 12/07/2007 Pneumococcal Vaccine: 65+ Years Completed 10/30/2014, 03/07/2010, 03/10/2003 Zoster Vaccines Completed 11/09/2019, 06/12, 02/28/2017 Influenza Vaccine (FLU shot) Completed , 03/20/2021, 01/03/2020, Additional history exists GARDASIL-HPV IMMUNIZATION SERIES Aged Out No longer eligible based on patient's age to complete this topic Hepatitis B Aged Out No longer eligi ble based on patient's age to complete this topic MENINGOCOCCAL (MENACTRA/MENVEO) Aged Out No longer eligible based on patient's age to complete this topic documented as of this encounter Medical Devices Not on filedocumented as of this encounter Advance Directives * Full Code (Latest Code Status on File) Date Activated Date Inactivated Comments 09/24/2007 3:51 PM 09/27/2007 3:27 PM Care Teams Deep Sea Diver Relationship Specialty Start Date End Date Agustín Sin MD [address] [place] [address] [place] [phone] PCP - General Family Medicine 05/06/21 documented as of this encounter
--- OUTSIDE RECORDS SUMMARY | 2023-10-18 09:05 | External Medical Summary ---
Author Name Unknown Address Unknown Organization K01:[facility] [place] - [address] [place] [address] Laboratory Report Ordering Provider Test Date Status INA ANDRADE 10/15/2023 12:42:28 Final Observation Date Value Abnormality Reference (Units ) Status BUN 10/15/2023 12:42:28 21 Above high normal 6-20 (mg/dL) Final Creatinine 10/15/2023 12:42:28 1.3 Above high normal 0.5-1.0 (mg/dL) Final Glomerular filtration rate/1.73 sq M.predicted [Volume Rate/Area] in Serum, Plasma or Blood by Creatinine-based formula (CKD-EPI) 10/15/2023 12:42:28 43 Below low normal >=60 (mL/min) Final eGFR is calculated based on the CKD-EPI 2020 equation Sodium 10/15/2023 12:42:28 142 135-146 (m mol/L) Final Potassium 10/15/2023 12:42:28 5.1 3.5-5.1 (m mol/L) Final Cl 10/15/2023 12:42:28 107 98-107 (mm ol/L) Final CO2 10/15/2023 12:42:28 27 22-32 (mmo l/L) Final Anion gap 10/15/2023 12:42:28 8 7-15 (mmol /L) Final Glucose 10/15/2023 12:42:28 82 70-120 (mg /dL) Final Calcium 10/15/2023 12:42:28 9.3 8.4-10.2 ( mg/dL) Final Albumin 10/15/2023 12:42:28 4.0 3.8-5.0 (g /dL) Final Phosphate 10/15/2023 12:42:28 4.1 2.5-4.8 (m g/dL) Final Performing Location [facility] [place] - [address] [place] [address]
--- OUTSIDE RECORDS SUMMARY | 2023-10-18 09:05 | External Medical Summary | Summary of Care ---
Author Name Unknown Organization [facility] Address [address] [facility] [place] [address] Phone [phone] Care Team Providers Care Extension Course Coordinator Name Role Phone Agustín Sin MD Primary Care Provide r Reason for Referral * Precert (Within 10 days (routine)) - Pending Review Specialty Diagnoses / Procedures Referred By Contsalud t Referred To Contact Radiology Diagnoses Dilated bile duct Procedures CT PANCREAS W IV AND W ORAL CONTRAST Tiarra Acosta CRNP [address] [place] [address] Referral ID Status Reason Start Date Expiration Date V isits Requested Visits Authorized [id number] Pending Review 09/21/2023 999 999 Reason for Visit * Reason Onset Date Comments Outpatient Testing 09/14/2023 Encounter Details Date Type Department Care Team (Late st Contact Info) Description 09/14/2023 Telephone Gastroenterology, [facility] [address] [place] [address] Tiarra Acosta CRNP [address] [place] [address] Outpatient Testing Allergies Active Allergy Reactions Criticality Noted Date Comments Lucas Inhibitors 08/14/2003 cough Bee Venom Anaphylaxis High 08/16/2013 Hydrochlorothiazide Medium 11/19/2005 Hypercalcemia And muscle cramps Nizatidine 12/03/2000 leg cramps documented as of this encounter (statuses as of 09/28/2023) Medications Medication Sig Dispensed Refills Start Date End Date Status MIRALAX PO POWDIndications:Con stipation due to slow transit Dissolve one heaping [...] Tablet by mouth in the morning. Active Diclofenac Sodium 1 % External Gel (Voltaren)Indicatio ns:Pain in other joint APPLY A PEA SIZE AMOUNT TOPICALLY TO AFFECTED AREA(S) OF PAINFUL AREA DAILY NEEDED 150 g 3 09/29/2022 4 Active Calcium Carbonate 600 MG Oral Tablet Take 1 Tablet by mouth in the morning. Active Losartan Potassium 100 MG Oral Tablet (Cozaar)Indications :HTN, goal below 140/90 TAKE ONE TABLET BY MOUTH EVERY MORNING 100 Tablet 3 03/18/2023 4 Active Famotidine 40 MG Oral Tablet (Pepcid) Take 1 Tablet by mouth in the morning. 90 Tablet 3 05/07/2023 Active Atorvastatin Calcium 10 MG Oral Tablet (Lipitor)Indication s:Dyslipidemia, goal LDL below 100 TAKE ONE TABLET BY MOUTH TWICE A WEEK 26 Tablet 1 06/18/2023 5 Active Levothyroxine Sodium 50 MCG Oral Tablet (Levoxyl)Indication s:Acquired hypothyroidism TAKE ONE AND ONE-HALF TABLETS BY MOUTH ON THURSDAY AND THURSDAY, THEN TAKE ONE TABLET ALL OTHER DAYS 110 Tablet 1 03/22/2023 4 Discontinue d(Refill) documented as of this encounter (statuses as of 09/28/2023) Active Problems Problem Noted Date Diagnosed Date [...] 3b chronic kidney disease 03/21/2008 EMERY RESEARCH OTHER*[id number] 08/31/2007 GENERAL OSTEOARTHROSIS documented as of this encounter (statuses as of 09/28/2023) Resolved Problems Problem Noted Date Diagnosed Date [...] BMI not known 09/09/2006 02/08/2008 LOC PRIM [id number] 06/01/200610/10 Venous insufficiency 11/19/2005 018 CERVICAL DISC DEGEN 07/23/2005 06/17/19 18 NEPHROPATHY -(NO 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 (250.4=) 04/19/2005 06/17/2017 HYPERTENSIVE RENAL DISEASE [...] as of this encounter (statuses as of 09/28/2023) Immunizations Name Administration Dates Next Due COVID-19 mRNA, LNP-s, No Pre serve, 2-Dose Series (Pure Software) 03/20/2021,08/09/2020,07/05/2020 PPD 07/23/2005 Pneumococcal Conjugate Vacc, 13 Valent (Prevnar) 10/30/2014 Pneumococcal Polysaccharide PPV23 (Pneumovax) 03/07/2010,03/10/2003 Season Influenza, Quad, PF, Adjuvanted, 65+ Yrs, IM (FLUAD) 01/03/2020 Seasonal Influenza, PF, 6 M & above, IM , (FluLaval or Fluzone) 01/31/2019,01/15/2018,01/30/2017 Seasonal Influenza, Quadriva lent Hd (Fluzone Hd) 03/05/2023 Seasonal Influenza, Quadriva lent, No Preserve, IM 02/26/2016,05/02/2015 Seasonal Influenza, Split, I IV3, With Preserve, Inj 05/01/2014,02/27/2013,01/29/2011,03/07,02/17/2009,03/21/2008,03/18/2007 ,02/18/2006,05/14/2004,03/10/2003 Seasonal Influenza, Trivalen t, Adjuvanted, 65+ yrs [...] encounter Miscellaneous Notes * Telephone Encounter - Tiarra Acosta CRNP - 09/28/2023 10:33 AM EDT A letter was sent to her yesterday. Please read it to her * Telephone Encounter - Samson Dorsey LPN - 09/28/2023 9:31 AM EDT The pt called in and is requesting the results of her CT scan. Please advise. * Telephone Encounter - Emelyn Cunningham OSA - 09/14/2023 1:[address] scheduled ABIMBOLA Hutchinson 09/14/2023 1:12 PM * Telephone Encounter - Tiarra Acosta CRNP - 09/14/2023 10:[address] Macdonald at the time of EUS, pt needs CT pancreas. Message left of pt phone to call to schedule. Letter written in addition. documented in this encounter Plan of Treatment Upcoming Encounters Date Type Department Care Team (Late st Contact Info) Description 10/23/2023 3:00 PM EDT Office Visit Nephrology [address] [place] [address] Basilia Bernal MD [address] [place] [address] 11/26/2023 10:20 AM EDT Office Visit Dermatology [facility] [address] [place] [address] Neda Davis PA-C [address] [facility] [place] [phone] 12/15/2023 9:00 AM EDT Nurse Only Ancillary [address] [place] [address] [place], Nurse [address] [place] [address] 01/01/2024 9:00 AM EDT Office Visit Gastroenterology, [facility] [address] [place] [address] Tiarra Acosta CRNP [address] [place] [address] 02/05/2024 10:40 AM EDT Office Visit Family Medicine [address] [place] [phone] Agustín Sin MD [address] [place] [address] [place] [address] Scheduled Procedures Name Priority Associated Diagnoses Date/Ti me COLONOSCOPY FLEXIBLE PROXIMA L DIAGNOSTIC Recall History of colon polyps Family history of colon cancer Health Maintenance Due Date Last Done Comments COVID-19 Vaccine ( season) 2023 03/20/2021, 08/09/2020, 07/05/2020 Depression Screening 12/12/2023 12/11/2022 Albumin/Creatinine Ratio 01/01/2024 023, 05/07/2022, 09/30/2021, Additional history exists CKD PHOS USE SMARTSET 98669 03/05/202402/09, 05/07/2022, 09/30/2021, Additional history exists GFR 03/16/2024 09/14/2023, 07/09, 05/07/2023, Additional history exists CKD HGB USE SMARTSET 08024 05/07/202405/07, 05/07/2023, 09/29/2022, Additional history exists DXA Scan 05/21/2024 05/21/2021, 05/11, 10/07/2017, Additional history exists HbA1c 07/20/2024 07/21/2023, 04/11, 07/16/2017, Additional history exists TSH 07/20/2024 07/21/2023, 09/09, 07/07/2022, Additional history exists Colonoscopy 12/09/2024 12/09/2021, 0805/2021, 10/29/2018, Additional history exists DTaP,Tdap,and Td Vaccines [...] Not on filedocumented as of this encounter Results * CT PANCREAS W IV AND W ORAL CONTRAST (09/21/2023 10:09 AM EDT) Anatomical Region Laterality Modality Abdomen, Body Computed Tomogra phy 09/24/2023 5:43 PM EDT Impressions 09/24/2023 5:41 PM EDT IMPRESSION Stable mild biliary ductal dilation Narrative 09/24/2023 5:41 PM EDT EXAM EXAM: CT PANCREAS W IV AND W ORAL CONTRAST DATE and TIME: 09/21/2023 10:09 am HISTORY CLINICAL INFORMATION: dilated bile duct at the level of the head of the pancreas on prior imaging TECHNIQUE Modality: CT COMPARISON 04/17/2023 MRI FINDINGS Liver: The liver is normal in size and configuration. Bile Ducts: There is mild biliary dilatation, with the proximal CBD measuring up to 1.2 cm in caliber. Gallbladder: Normal. Spleen: Normal in size. Pancreas: Atrophic no pancreatic ductal dilatation. Adrenal Glands: Normal. Kidneys: Left kidney is absent. Right kidney containing probable small cysts. Ascites: None. Lymph Nodes: No adenopathy. Osseous Structures: Mild scoliosis and degenerative changes in the spine. Vasculature: Atherosclerosis of the aorta. Procedure Note Tom Alexander MD - 09/24/2023 EXAM EXAM: CT PANCREAS W IV AND W ORAL CONTRAST DATE and TIME: 09/21/2023 10:09 am HISTORY CLINICAL INFORMATION: dilated bile duct at the level of the head of thepancreas on prior imaging TECHNIQUE Modality: CT COMPARISON 04/17/2023 MRI FINDINGS Liver: The liver is normal in size and configuration. Bile Ducts: There is mild biliary dilatation, with the proximal CBDmeasuring up to 1.2 cm in caliber. Gallbladder: Normal. Spleen: Normal in size. Pancreas: Atrophic no pancreatic ductal dilatation. Adrenal Glands: Normal. Kidneys: Left kidney is absent. Right kidney containing probable smallcysts. Ascites: None. Lymph Nodes: No adenopathy. Osseous Structures: Mild scoliosis and degenerative changes in thespine. Vasculature: Atherosclerosis of the aorta. IMPRESSION IMPRESSION Stable mild biliary ductal dilation Tiarra RICHARDS RAD CT * (ABNORMAL) CREATININE (09/14/2023 12:15 PM EDT) Creatinine 1.2(H) 0.5 - 1.0 mg/dL 09/14/2023 11:27 PM EDT [facility]ORY [facility] Estimated Glomerular Filtration Rate 46(L) >=60 mL/min 09/14/2023 11:27 PM EDT LAB[facility]ATORY [facility] Comment:eGFR is calculated b ased on the CKD-EPI 2020 equation Blood Venous blood specimen / Unknown Venipuncture / Unknown 09/14/2023 12:15 PM EDT 09/14/2023 12:15 PM EDT Tiarra RICHARDS LAB BLOOD ORDERABL ES [facility]ATORY [facility] [address] [place] [address] documented in this encounter Visit Diagnoses Diagnosis Dilated bile duct- Primary Other specified disorders of biliary tract Dilated bile duct Other specified disorders of biliary tract documented in this encounter Advance Directives * Full Code (Latest Code Status on File) Date Activated Date Inactivated Comments 09/24/2007 3:51 PM 09/27/2007 3:27 PM Care Teams Extension Course Coordinator Relationship Specialty Start Date End Date Agustín Sin MD [address] [place] [address] [place] [phone] PCP - General Family Medicine 05/06/21 documented as of this encounter
--- OUTSIDE RECORDS SUMMARY | 2023-10-18 09:05 | External Medical Summary | Summary of Care ---
Author Name Unknown Organization [facility] Address [address] [facility] [place] [address] Phone [phone] Care Team Providers Care Curam Developer Name Role Phone Agustín Sin MD Primary Care Provide r Reason for Visit * Reason Onset Date Comments Test Results 09/24/2023 Encounter Details Date Type Department Care Team (Late st Contact Info) Description 09/24/2023 Telephone Family Medicine [address] [place] [phone] Agustín Sin MD [address] [place] [address] [place] [address] Test Results Allergies Active Allergy Reactions Criticality Noted Date [...] AREA DAILY NEEDED 150 g 3 09/29/2022 09/29/2023 Active Calcium Carbonate 600 MG Oral Tablet Take 1 Tablet by mouth in the morning. Active Losartan Potassium 100 MG Oral Tablet (Cozaar)Indications: HTN, goal below 140/90 TAKE ONE TABLET BY MOUTH EVERY MORNING 100 Tablet 3 03/18/2023 03/17/2024 Active Famotidine 40 MG Oral Tablet (Pepcid) Take 1 Tablet by mouth in the morning. 90 Tablet 3 05/07/2023 Active Atorvastatin Calcium 10 MG Oral Tablet (Lipitor)Indications :Dyslipidemia, goal LDL below 100 TAKE ONE TABLET BY MOUTH TWICE A WEEK 26 Tablet 1 06/18/2023 06/17/2024 Active Levothyroxine Sodium 50 MCG Oral Tablet (Levoxyl)Indications :Acquired hypothyroidism TAKE ONE AND ONE-HALF TABLETS BY MOUTH ON THURSDAY AND THURSDAY, THEN TAKE ONE TABLET ALL OTHER DAYS 110 Tablet 1 09/19/2023 09/18/2024 Active documented as of this encounter (statuses as [...] 3b chronic kidney disease 03/21/2008 EMERY RESEARCH OTHER*[id number] 08/31/2007 GENERAL OSTEOARTHROSIS documented as of this [...] BMI not known 09/09/2006 02/08/2008 LOC PRIM [id number] 06/01/200610/10 Venous insufficiency 11/19/2005 018 CERVICAL DISC DEGEN 07/23/2005 06/17/19 18 NEPHROPATHY -(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 * Telephone Encounter - Lakesha Shelby RN - 09/24/2023 1:[address] is still in process. * Telephone Encounter - Hollie Monaco OSA - 09/24/2023 9:10 AM EDT Who is Requesting Test Results: patient Primary Care Provider : Agustín Sin MD Tests Results Requested : CT scan Date of Test : 09/21/23 Location of Test: [facility] Ordering Provider: Tiarra Acosta Patient has been made aware that the turnaround time for test results are typically as follows: Laboratory results = within 2-3 days ([facility]), 3-5 days (Non-[facility], ie. [facility]) Urine Cultures = within 2-3 days depending on growth within the culture Pathology results (biopsy results/PAP) = 1-2 weeks Radiology results = about 1 week Cologuard results = within 2 weeks from the shipment date COVID testing = about 24 hours documented in this encounter Plan of Treatment Upcoming Encounters Date Type Department Care Team (Late st Contact Info) Description 10/23/2023 3:00 PM EDT Office Visit Nephrology [address] [place] [address] Basilia Bernal MD [address] [place] [address] 11/26/2023 10:20 AM EDT Office Visit Dermatology [facility] [address] [place] [address] Neda Davis PA-C [address] [place] [phone] 12/15/2023 9:00 AM EDT Nurse Only Ancillary [address] [place] [address] [place], Nurse [address] [place] [address] 01/01/2024 9:00 AM EDT Office Visit [facility]enterology, [facility] [place] [address] Tiarra Acosta CRNP [address] [place] [address] 02/05/2024 10:40 AM EDT Office Visit Family Medicine [address] [place] [phone] Agustín Sin MD [address] [place] [address] [place] [address] Scheduled Procedures Name Priority Associated Diagnoses Date/Ti me COLONOSCOPY FLEXIBLE PROXIMA L DIAGNOSTIC Recall History of colon polyps Family history of colon cancer Health Maintenance Due Date Last Done Comments COVID-19 Vaccine ( season) 2023 03/20/2021, 08/09/2020, 07/05/2020 Depression Screening 12/12/2023 12/11/2022 Albumin/Creatinine Ratio 01/01/2024 023, 05/07/2022, 09/30/2021, Additional history exists CKD PHOS USE SMARTSET 57284 03/05/202402/09, 05/07/2022, 09/30/2021, Additional history exists GFR 03/16/2024 09/14/2023, 07/09, 05/07/2023, Additional history exists CKD HGB USE SMARTSET 79651 05/07/202405/07, 05/07/2023, 09/29/2022, Additional history exists DXA Scan 05/21/2024 05/21/2021, 05/11, 10/07/2017, Additional history exists HbA1c 07/20/2024 07/21/2023, 04/11, 07/16/2017, Additional history exists TSH 07/20/2024 07/21/2023, 09/09, 07/07/2022, Additional history exists Colonoscopy 12/09/2024 12/09/2021, 08/05/2021, 10/29/2018, Additional history exists DTaP,Tdap,and Td Vaccines [...] 3:51 PM 09/27/2007 3:27 PM Care Teams Curam Developer Relationship Specialty Start Date End Date Agustín Sin MD [address] [place] [address] [place] [address] PCP - General Family Medicine 05/06/21 documented as of this encounter
--- OUTSIDE RECORDS SUMMARY | 2023-10-18 09:05 | External Medical Summary ---
Author Name Unknown Address Unknown Organization K01:LABORATORY [facility] [place] - [address] [place] [address] Laboratory Report Ordering Provider Test Date Status SUNDAY COFFMAN 10/15/2023 12:42:28 Final Observation Date Value Abnormality Reference (Units ) Status MYCODE SPECIMEN-SST 10/15/2023 12:42:28 Freezing of extracted DNA, whole blood and/or serum. Final Performing Location LABORATORY C - [address] [place] [address]
--- OUTSIDE RECORDS SUMMARY | 2023-10-18 09:05 | External Medical Summary ---
Author Name Unknown Address Unknown Organization K01:[facility] [address] [place] [address] Laboratory Report Ordering Provider Test Date Status SUNDAY COFFMAN 10/15/2023 12:42:28 Final Observation Date Value Abnormality Reference (Units ) Status MYCODE SPECIMEN-SST 10/15/2023 12:42:28 Freezing of extracted DNA, whole blood and/or serum. Final Performing Location LABORATORY C - [address] [place] [address]
--- OUTSIDE RECORDS SUMMARY | 2023-10-18 09:05 | External Medical Summary | Summary of Care ---
Author Name Unknown Organization [facility] Address [address] [facility] [place] [address] Phone [phone] Care Team Providers Care Pigment Pusher Name Role Phone Agustín Sin MD Primary Care Provide r Reason for Visit * Reason Onset Date Comments Advice 09/28/2023 Encounter Details Date Type Department Care Team (Late st Contact Info) Description 09/28/2023 Telephone Family Medicine [address] [place] [phone] Agustín Sin MD [address] [place] [address] [place] [address] Advice Allergies Active Allergy Reactions Criticality Noted Date Comments Lucas Inhibitors 08/14/2003 cough Bee Venom Anaphylaxis High 08/16/2013 Hydrochlorothiazide Medium 11/19/2005 Hypercalcemia And muscle cramps Nizatidine 12/03/2000 leg cramps documented as of this encounter (statuses as of 10/02/2023) Medications Medication Sig Dispensed Refills Start Date [...] as of this encounter (statuses as of 10/02/2023) Active Problems Problem Noted Date Diagnosed Date [...] 3b chronic kidney disease 03/21/2008 EMERY RESEARCH OTHER*[id number] 08/31/2007 GENERAL OSTEOARTHROSIS documented as of this encounter (statuses as of 10/02/2023) Resolved Problems Problem Noted Date Diagnosed Date [...] BMI not known 09/09/2006 02/08/2008 LOC PRIM [id number] 06/01/200610/10 Venous insufficiency 11/19/2005 018 CERVICAL DISC DEGEN 07/23/2005 06/17/19 18 NEPHROPATHY -(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 Cee to call her at [phone] documented in this encounter Plan of Treatment Upcoming Encounters Date Type Department Care Team (Late st Contact Info) Description 10/23/2023 3:00 PM EDT Office Visit Nephrology [address] [place] [address] Basilia Bernal MD [address] [place] [address] 11/26/2023 10:20 AM EDT Office Visit Dermatology [facility] [place]ki [place] [address] [place] [address] Neda Davis PA-C [address] [place] [phone] 12/15/2023 9:00 AM EDT Nurse Only Ancillary [address] [place] [address] [place], Nurse [address] [place] [address] 01/01/2024 9:00 AM EDT Office Visit Gastroenterology, [facility] [address] [place] [address] Tiarra Acosta CRNP [address] [place] [address] 02/05/2024 10:40 AM EDT Office Visit Family Medicine [address] [place] [phone] Agustín Sin MD [address] [place] [address] [place] [address] Scheduled Procedures Name Priority Associated Diagnoses Date/Ti me COLONOSCOPY FLEXIBLE PROXIMA L DIAGNOSTIC Recall History of colon polyps Family history of colon cancer Health Maintenance Due Date Last Done Comments COVID-19 Vaccine ( season) 2023 03/20/2021, 08/09/2020, 07/05/2020 Depression Screening 12/12/2023 12/11/2022 Albumin/Creatinine Ratio 01/01/2024 023, 05/07/2022, 09/30/2021, Additional history exists CKD PHOS USE SMARTSET 41065 03/05/202402/09, 05/07/2022, 09/30/2021, Additional history exists GFR 03/16/2024 09/14/2023, 07/09, 05/07/2023, Additional history exists CKD HGB USE SMARTSET 85781 05/07/202405/07, 05/07/2023, 09/29/2022, Additional history exists DXA [...] 3:51 PM 09/27/2007 3:27 PM Care Teams Pigment Pusher Relationship Specialty Start Date End Date Agustín Sin MD [address] [place] [address] [place] [phone] PCP - General Family Medicine 05/06/21 documented as of this encounter
--- OUTSIDE RECORDS SUMMARY | 2023-10-18 09:05 | External Medical Summary | Summary of Care ---
Author Name Unknown Organization [facility] Address 100 [facility] [place] [address] Phone [phone] Care Team Providers Care Biological Chemist Name Role Phone Agustín Sin MD Primary Care Provide r Reason for Visit * Reason Onset Date Comments Outpatient Testing 10/15/2023 Encounter Details Date Type Department Care Team (Late st Contact Info) Description 10/15/2023 Telephone Nephrology, [facility] 200 [facility] [place] [address] Basilia Bernal MD [address] [place] [address] Outpatient Testing Allergies Active Allergy Reactions Criticality Noted Date Comments Lucas Inhibitors 08/14/2003 cough Bee Venom Anaphylaxis High 08/16/2013 Hydrochlorothiazide Medium 11/19/2005 Hypercalcemia And muscle cramps Nizatidine 12/03/2000 leg cramps documented as of this encounter (statuses as of 10/15/2023) Medications Medication Sig Dispensed Refills Start Date [...] as of this encounter (statuses as of 10/15/2023) Active Problems Problem Noted Date Diagnosed Date [...] 3b chronic kidney disease 03/21/2008 [facility] [employer] OTHER*[id number] 08/31/2007 GENERAL OSTEOARTHROSIS documented as of this encounter (statuses as of 10/15/2023) Resolved Problems Problem Noted Date Diagnosed Date [...] BMI not known 09/09/2006 02/08/2008 LOC PRIM [id number] 06/01/200610/10 Venous insufficiency 11/19/2005 018 CERVICAL DISC DEGEN 07/23/2005 06/17/19 18 NEPHROPATHY -(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 Order placed per protocol. documented in this encounter Plan of Treatment Upcoming Encounters Date Type Department Care Team (Late st Contact Info) Description 10/23/2023 3:00 PM EDT Office Visit Nephrology [address] [place] [address] Basilia Bernal MD [address] [place] [address] 11/26/2023 10:20 AM EDT Office Visit Dermatology [facility] [address] [place] [address] Neda Davis PA-C [address] [place] [address] 12/15/2023 9:00 AM EDT Nurse Only Ancillary [address] [place] [address] Jerod, Nurse [address] [place] [address] 01/01/2024 9:00 AM EDT Office Visit Gastroenterology, [facility] 132 [place] [address] Tiarra Acosta CRNP [address] [place] [address] 02/05/2024 10:40 AM EDT Office Visit Family Medicine [address] [place] [address] Agustín Sin MD [address] [place] [address] [place] [address] Scheduled Orders Name Type Priority Associated Diagnoses Orde r Schedule RENAL FUNCTION PANEL Lab Routine Chronic kidney disease, stage 3b (HCC) Expected: 10/15/2023, Expires: 10/14/2024 Scheduled Procedures Name Priority Associated Diagnoses Date/Ti me COLONOSCOPY FLEXIBLE PROXIMA L DIAGNOSTIC Recall History of colon polyps Family history of colon cancer Health Maintenance Due Date Last Done Comments COVID-19 Vaccine ( season) 2023 03/20/2021, 08/09/2020, 07/05/2020 Depression Screening 12/12/2023 12/11/2022 Albumin/Creatinine Ratio 01/01/2024 023, 05/07/2022, 09/30/2021, Additional history exists CKD PHOS USE SMARTSET 29869 03/05/202402/09, 05/07/2022, 09/30/2021, Additional history exists GFR 03/16/2024 09/14/2023, 07/09, 05/07/2023, Additional history exists CKD HGB USE SMARTSET 48854 05/07/202405/07, 05/07/2023, 09/29/2022, Additional history exists DXA [...] Not on filedocumented as of this encounter Visit Diagnoses Diagnosis Chronic kidney disease, stage 3b (HCC)- Primary documented in this encounter Advance Directives * Full Code (Latest Code Status on File) Date Activated Date Inactivated Comments 09/24/2007 3:51 PM 09/27/2007 3:27 PM Care Teams Biological Chemist Relationship Specialty Start Date End Date Agustín Sin MD [address] [place] [address] [place] [phone] PCP - General Family Medicine 05/06/21 documented as of this encounter
--- OUTSIDE RECORDS SUMMARY | 2023-10-18 09:05 | External Medical Summary | Summary of Care ---
Author Name Unknown Organization [facility] Address 100 [facility] [place] [address] Phone [phone] Care Team Providers Care Underwriting Manager Name Role Phone Agustín Sin MD Primary Care Provide r Reason for Visit * Reason Comments Outpatient Testing Encounter Details Date Type Department Care Team (Late st Contact Info) Description 10/15/2023 12:40 PM EDT Laboratory Laboratory [address] [place] [phone] [place] [address] [employer] Other*[id number]; Chronic kidney disease, stage 3b (HCC) Allergies Active Allergy Reactions Criticality Noted Date [...] 3b chronic kidney disease 03/21/2008 EMERY RESEARCH OTHER*[id number] 08/31/2007 GENERAL OSTEOARTHROSIS documented as of this [...] BMI not known 09/09/2006 02/08/2008 LOC PRIM [id number] 06/01/200610/10 Venous insufficiency 11/19/2005 018 CERVICAL DISC DEGEN 07/23/2005 06/17/19 18 NEPHROPATHY -(NO MENTION ACU TE/HISTOLOGIST DIABETIC (250.4=) 04/19/2005 06/17/2017 HYPERTENSIVE RENAL DISEASE [...] on file documented as of this encounter Plan of Treatment Upcoming Encounters Date Type Department Care Team (Late st Contact Info) Description 10/23/2023 3:00 PM EDT Office Visit Nephrology [address] [place] [address] Basilia Bernal MD [address] [place] [address] 11/26/2023 10:20 AM EDT Office Visit Dermatology [facility] [address] [place] [address] Neda Davis PA-C 200 [facility] [place] [phone] 12/15/2023 9:00 AM EDT Nurse Only Ancillary [address] [place] [address] Jerod, Nurse [address] [place] [address] 01/01/2024 9:00 AM EDT Office Visit Gastroenterology, [facility] 132 [place] [address] Tiarra Acosta CRNP 132 [place] [address] 02/05/2024 10:40 AM EDT Office Visit Family Medicine [address] [place] [phone] Agustín Sin MD [address] [place] [address] [place] [address] Pending Results Name Type Priority Associated Diagnoses Date /Time MYCODE SUBSEQUENT ADULT Lab Routine [employer] Other*[id number] 10/15/2023 12:42 PM EDT RENAL FUNCTION PANEL Lab Routine Chronic kidney disease, stage 3b (HCC) 10/15/2023 12:42 PM EDT MYCODE SST1 Lab Routine [employer] Other*[id number] 10/15/2023 12:42 PM EDT MYCODE SST2 Lab Routine [employer] Other*[id number] 10/15/2023 12:42 PM EDT Scheduled Procedures Name Priority Associated Diagnoses Date/Ti me COLONOSCOPY FLEXIBLE PROXIMA L DIAGNOSTIC Recall History of colon polyps Family history of colon cancer Health Maintenance Due Date Last Done Comments COVID-19 Vaccine ( season) 2023 03/20/2021, 08/09/2020, 07/05/2020 Depression Screening 12/12/2023 12/11/2022 Albumin/Creatinine Ratio 01/01/2024 023, 05/07/2022, 09/30/2021, Additional history exists CKD PHOS USE SMARTSET 44784 03/05/202402/09, 05/07/2022, 09/30/2021, Additional history exists GFR 03/16/2024 09/14/2023, 07/09, 05/07/2023, Additional history exists CKD HGB USE SMARTSET 63328 05/07/202405/07, 05/07/2023, 09/29/2022, Additional history exists DXA [...] as of this encounter Visit Diagnoses Diagnosis [employer] Other*[id number] Chronic kidney disease, stage 3b (HCC) documented in this encounter Advance Directives * Full Code (Latest Code Status on File) Date Activated Date Inactivated Comments 09/24/2007 3:51 PM 09/27/2007 3:27 PM Care Teams Underwriting Manager Relationship Specialty Start Date End Date Agustín Sin MD [address] [place] [address] [place] [address] PCP - General Family Medicine 05/06/21 documented as of this encounter
--- OUTSIDE RECORDS SUMMARY | 2023-10-18 09:05 | External Medical Summary | Summary of Care ---
Author Name Unknown Organization [facility] Address 100 [facility] [place] [address] Phone [phone] Care Team Providers Care Preschool Disability Teacher Name Role Phone Agustín Sin MD Primary Care Provide r Reason for Referral * Precert (Within 10 days (routine)) - Pending Review Specialty Diagnoses / Procedures Referred By Contsalud t Referred To Contact Radiology Diagnoses Dilated bile duct Procedures CT PANCREAS W IV AND W ORAL CONTRAST Tiarra Acosta CRNP [address] [employer] [place] [address] Referral ID Status Reason Start Date Expiration Date V isits Requested Visits Authorized [id number] Pending Review 09/21/[phone] Reason for Visit * Reason Onset Date Comments Outpatient Testing 09/14/2023 Encounter Details Date Type Department Care Team (Late st Contact Info) Description 09/14/2023 Telephone Gastroenterology, [facility] [address] [place] [address] Tiarra Acosta CRNP [address] [employer] [place] [address] Outpatient Testing Allergies Active Allergy Reactions Criticality [...] 3b chronic kidney disease 03/21/2008 EMERY RESEARCH OTHER*[id number] 08/31/2007 GENERAL OSTEOARTHROSIS documented as of this [...] BMI not known 09/09/2006 02/08/2008 LOC PRIM [id number] 06/01/200610/10 Venous insufficiency 11/19/2005 018 CERVICAL DISC DEGEN 07/23/2005 06/17/19 18 NEPHROPATHY -(NO MENTION ACU TE/DATA ANALYST DIABETIC (250.4=) 04/19/2005 06/17/2017 HYPERTENSIVE RENAL DISEASE [...] mRNA, LNP-s, No Pre serve, 2-Dose Series ([email or web address]) 03/20/2021,08/09/2020,07/05/2020 PPD 07/23/2005 Pneumococcal Conjugate Vacc, 13 [...] encounter Miscellaneous Notes * Telephone Encounter - Samson Dorsey LPN [...] 10/23/2023 3:00 PM EDT Office Visit Nephrology [address] [place] [address] Basilia Bernal MD 200 [facility] [place] [address] 11/26/2023 10:20 AM EDT Office Visit Dermatology [facility] 200 [facility] [place] [address] Neda Davis PA-C 200 [facility] [place] [phone] 12/15/2023 9:00 AM EDT Nurse Only Ancillary [address] [place] [address] Jessicaey, Nurse [address] [place] [address] 01/01/2024 9:00 AM EDT Office Visit Gastroenterology, [facility] 132 [facility] [place] [address] Tiarra Acosta CRNP [address] [place] [address] 02/05/2024 10:40 AM EDT Office Visit Family Medicine [address] [place] [phone] Agustín Sin MD [address] [place] [address] [place] [address] Scheduled Procedures Name Priority Associated Diagnoses Date/Ti me COLONOSCOPY FLEXIBLE PROXIMA L DIAGNOSTIC Recall History of colon polyps Family history of colon cancer Health Maintenance Due Date Last Done Comments COVID-19 Vaccine ( season) 2023 03/20/2021, 08/09/2020, 07/05/2020 Depression Screening 12/12/2023 12/11/2022 Albumin/Creatinine Ratio 01/01/2024 023, 05/07/2022, 09/30/2021, Additional history exists CKD PHOS USE SMARTSET 72532 03/05/202402/09, 05/07/2022, 09/30/2021, Additional history exists GFR 03/16/2024 09/14/2023, 07/09, 05/07/2023, Additional history exists CKD HGB USE SMARTSET 51122 05/07/202405/07, 05/07/2023, 09/29/2022, Additional history exists DXA [...] 1.0 mg/dL 09/14/2023 11:27 PM EDT [facility] Estimated Glomerular Filtration Rate 46(L) >=60 mL/min 09/14/2023 11:27 PM EDT [facility] Comment:eGFR is calculated b ased on the CKD-EPI 2020 equation Blood Venous blood specimen / Unknown Venipuncture / Unknown 09/14/2023 12:15 PM EDT 09/14/2023 12:15 PM EDT Tiarra RICHARDS LAB BLOOD ORDERABL ES LABORATORY [facility] [address] [place] [address] documented in this encounter Visit Diagnoses Diagnosis Dilated bile duct- Primary Other specified disorders of biliary tract Dilated bile duct Other specified disorders of biliary tract documented in this encounter Advance Directives * Full Code (Latest Code Status on File) Date Activated Date Inactivated Comments 09/24/2007 3:51 PM 09/27/2007 3:27 PM Care Teams Preschool Disability Teacher Relationship Specialty Start Date End Date Agustín Sin MD [address] [place] [address] [place] [phone] PCP - General Family Medicine 05/06/21 documented as of this encounter
--- OUTSIDE RECORDS SUMMARY | 2023-10-18 09:05 | External Medical Summary | Summary of Care ---
Author Name Unknown Organization [facility] Address 100 [facility] [place] [address] Phone [phone] Care Team Providers Care Spiritual Care Coordinator Name Role Phone Agustín Sin MD Primary Care Provide r Reason for Referral * Precert (Within 10 days (routine)) - Pending Review Specialty Diagnoses / Procedures Referred By Contsalud t Referred To Contact Radiology Diagnoses Dilated bile duct Procedures CT PANCREAS W IV AND W ORAL CONTRAST Tiarra Acosta CRNP [address] [employer] [place] [address] Referral ID Status Reason Start Date Expiration Date V isits Requested Visits Authorized [id number] Pending Review 09/21/[phone] Reason for Visit * Reason Onset Date Comments Outpatient Testing 09/14/2023 Encounter Details Date Type Department Care Team (Late st Contact Info) Description 09/14/2023 Telephone Gastroenterology, [facility] [address] [place] [address] Tiarra Acosta CRNP [address] [employer] [place] [address] Outpatient Testing Allergies Active Allergy Reactions Criticality [...] 3b chronic kidney disease 03/21/2008 EMERY RESEARCH OTHER*[id number] 08/31/2007 GENERAL OSTEOARTHROSIS documented as of this [...] BMI not known 09/09/2006 02/08/2008 LOC PRIM [id number] 06/01/200610/10 Venous insufficiency 11/19/2005 018 CERVICAL DISC DEGEN 07/23/2005 06/17/19 18 NEPHROPATHY -(NO MENTION ACU TE/MASONRY INSTRUCTOR DIABETIC (250.4=) 04/19/2005 06/17/2017 HYPERTENSIVE RENAL DISEASE [...] mRNA, LNP-s, No Pre serve, 2-Dose Series ([employer]) 03/20/2021,08/09/2020,07/05/2020 PPD 07/23/2005 Pneumococcal Conjugate Vacc, 13 [...] Encounter - Shawna Stark RN - 09/28/2023 4:17 PM EDT Read letter to patient. Verbalizes understanding. * Telephone Encounter - Tiarra Acosta CRNP [...] 10/23/2023 3:00 PM EDT Office Visit Nephrology [address] [place] [address] Basilia Bernal MD [address] [place] [address] 11/26/2023 10:20 AM EDT Office Visit Dermatology [facility] [address] [place] [address] Neda Davis PA-C 200 [facility] [place] [phone] 12/15/2023 9:00 AM EDT Nurse Only Ancillary [address] [place] [address] [place], Nurse [address] [place] [address] 01/01/2024 9:00 AM EDT Office Visit Gastroenterology, [facility] [address] [place] [address] Tiarra Acosta CRNP [address] [place] [address] 02/05/2024 10:40 AM EDT Office Visit Family Medicine [address] [place] [phone] Agustín Sin MD [address] [place] [address] [place] [address] Scheduled Procedures Name Priority Associated Diagnoses Date/Ti me COLONOSCOPY FLEXIBLE PROXIMA L DIAGNOSTIC Recall History of colon polyps Family history of colon cancer Health Maintenance Due Date Last Done Comments COVID-19 Vaccine ( season) 2023 03/20/2021, 08/09/2020, 07/05/2020 Depression Screening 12/12/2023 12/11/2022 Albumin/Creatinine Ratio 01/01/2024 023, 05/07/2022, 09/30/2021, Additional history exists CKD PHOS USE SMARTSET 65903 03/05/202402/09, 05/07/2022, 09/30/2021, Additional history exists GFR 03/16/2024 09/14/2023, 07/09, 05/07/2023, Additional history exists CKD HGB USE SMARTSET 04284 05/07/202405/07, 05/07/2023, 09/29/2022, Additional history exists DXA [...] 1.0 mg/dL 09/14/2023 11:27 PM EDT LAB[facility]ATORY [facility] Estimated Glomerular Filtration Rate 46(L) >=60 mL/min 09/14/2023 11:27 PM EDT LAB[facility] Comment:eGFR is calculated b ased on the CKD-EPI 2020 equation Blood Venous blood specimen / Unknown Venipuncture / Unknown 09/14/2023 12:15 PM EDT 09/14/2023 12:15 PM EDT Tiarra RICHARDS LAB BLOOD ORDERABL ES LAB[facility]ATORY [facility] [address] [place] [address] documented in this encounter Visit Diagnoses Diagnosis Dilated bile duct- Primary Other specified disorders of biliary tract Dilated bile duct Other specified disorders of biliary tract documented in this encounter Advance Directives * Full Code (Latest Code Status on File) Date Activated Date Inactivated Comments 09/24/2007 3:51 PM 09/27/2007 3:27 PM Care Teams Spiritual Care Coordinator Relationship Specialty Start Date End Date Agustín Sin MD [address] [place] [address] [place] [address] PCP - General Family Medicine 05/06/21 documented as of this encounter
--- OUTSIDE RECORDS SUMMARY | 2023-10-18 09:06 | External Medical Summary | Summary of Care ---
Author Name Unknown Organization [facility] Address 100 [facility] [place] [address] Phone [phone] Care Team Providers Care Automotive Sales Associate Name Role Phone Agustín Sin MD Primary Care Provide r Reason for Visit * Reason Comments Outpatient Testing Encounter Details Date Type Department Care Team (Late st Contact Info) Description 07/21/2023 10:20 AM EDT Laboratory Laboratory [address] [place] [phone] [facility] [address] [place] [address] Hyperlipidemia, unspecified hyperlipidemia type; Hypertensive kidney disease with stage 3b chronic kidney disease (HCC); Acquired hypothyroidism; Prediabetes Allergies Active Allergy Reactions Criticality Noted Date Comments Lucas Inhibitors 08/14/2003 cough Bee Venom Anaphylaxis High 08/16/2013 Hydrochlorothiazide Medium 11/19/2005 Hypercalcemia And muscle cramps Nizatidine 12/03/2000 leg cramps documented as of this encounter (statuses as of 07/21/2023) Medications Medication Sig Dispensed Refills Start Date End Date Status MIRALAX PO POWDIndications:Cons tipation due to slow transit Dissolve one heaping tablespoon in 8 ounces of water or juice - one dose twice a day as needed for constipation- TAKES NEEDED 1 Bottle 0 06/07/2013 Active ONETOUCH ULTRA BLUE STRPIndications:Type 2 diabetes mellitus with hemoglobin A1c goal of less than 7.0% ([facility]) TEST 2 TO 3 TIMES DAILY 300 Strip 1 10/31/2016 Active Additional Information Patient not taking.Reported on 05/07/2023 MV-Min-Fe Fum-FA-DHA ( 1) 30-0.975-200 MG Capsule Take 1 Cap by mouth daily. 0 Active Cyanocobalamin (VITAMIN B 12) 500 MCG TABS Take 2,500 mcg by mouth. 0 Active Magnesium 250 MG Oral Tablet Take 1 Tablet by mouth in the morning. 0 Active Diclofenac Sodium 1 % External Gel (Voltaren)Indication s:Pain in other joint APPLY A PEA SIZE AMOUNT TOPICALLY TO AFFECTED AREA(S) OF PAINFUL AREA DAILY NEEDED 150 g 3 09/29/2022 4 Active Calcium Carbonate 600 MG Oral Tablet Take 1 Tablet by mouth in the morning. 0 Active Losartan Potassium 100 MG Oral Tablet (Cozaar)Indications: HTN, goal below 140/90 TAKE ONE TABLET BY MOUTH EVERY MORNING 100 Tablet 3 03/18/2023 4 Active Levothyroxine Sodium 50 MCG Oral Tablet (Levoxyl)Indications :Acquired hypothyroidism TAKE ONE AND ONE-HALF TABLETS BY MOUTH ON THURSDAY AND THURSDAY, THEN TAKE ONE TABLET ALL OTHER DAYS 110 Tablet 1 03/22/2023 4 Active Famotidine 40 MG Oral Tablet (Pepcid) Take 1 Tablet by mouth in the morning. 90 Tablet 3 05/07/2023 Active Atorvastatin Calcium 10 MG Oral Tablet (Lipitor)Indications :Dyslipidemia, goal LDL below 100 TAKE ONE TABLET BY MOUTH TWICE A WEEK 26 Tablet 1 06/18/2023 5 Active Brainstrong Memory Support Oral Tablet Take by mouth. 0 A ctive documented as of this encounter (statuses as of 07/21/2023) Active Problems Problem Noted Date Diagnosed Date Hyperlipidemia 07/21/2023 Primary open-angle glaucoma, right eye, [...] 3b chronic kidney disease 03/21/2008 EMERY RESEARCH OTHER*[id number] 08/31/2007 GENERAL OSTEOARTHROSIS documented as of this encounter (statuses as of 07/21/2023) Resolved Problems Problem Noted Date Diagnosed Date [...] BMI not known 09/09/2006 02/08/2008 LOC PRIM [id number] 06/01/200610/10 Venous insufficiency 11/19/2005 018 CERVICAL DISC DEGEN 07/23/2005 06/17/19 18 NEPHROPATHY -(NO MENTION ACU TE/BARREL LINER DIABETIC (250.4=) 04/19/2005 06/17/2017 HYPERTENSIVE RENAL DISEASE [...] as of this encounter (statuses as of 07/21/2023) Immunizations Name Administration Dates Next Due COVID-19 [...] Care Team (Late st Contact Info) Description 07/24/2023 12:40 PM EDT Office Visit Family Medicine [address] [place] [phone] Agustín Sin MD [address] [place] [address] [place] [address] 10/14/2023 3:00 PM EDT Office Visit Gastroenterology, [facility] 132 [facility] [place] [address] Tiarra Acosta CRNP [address] [place] [address] 10/23/2023 3:00 PM EDT Office Visit Nephrology [address] [place] [address] Basilia [facility]al MD [facility] [address] 12/15/2023 9:00 AM EDT Nurse Only Ancillary [address] [place] [address] [place], Nurse [address] [place] [address] Pending Results Name Type Priority Associated Diagnoses Date /Time LIPID PANEL WITH DIRECT LDL IF TG IS HIGH Lab Routine Hyperlipidemia, unspecified hyperlipidemia type 07/21/2023 10:27 AM EDT COMPREHENSIVE METABOLIC PANEL Lab Routine Hypertensive kidney disease with stage 3b chronic kidney disease (HCC) 07/21/2023 10:27 AM EDT TSH Lab Routine Acquired hypothyroidism 07/21/2023 10:27 AM EDT HEMOGLOBIN A1C Lab Routine Prediabetes 07/21/2023 10:27 AM EDT Scheduled Procedures Name Priority Associated Diagnoses Date/Ti me COLONOSCOPY FLEXIBLE PROXIMA L DIAGNOSTIC Recall History of colon polyps Family history of colon cancer Health Maintenance Due Date Last Done Comments COVID-19 Vaccine ( season) 2023 03/20/2021, 08/09/2020, 07/05/2020 TSH 09/30/2023 09/29/2022, 06/12, 05/07/2022, Additional history exists GFR 11/06/2023 05/07/2023, 02/09, 09/29/2022, Additional history exists Depression Screening 12/12/2023 12/11/2022 Albumin/Creatinine Ratio 01/01/2024 023, 05/07/2022, 09/30/2021, Additional history exists CKD PHOS USE SMARTSET 07401 03/05/202402/09, 05/07/2022, 09/30/2021, Additional history exists CKD HGB USE SMARTSET 44760 05/07/202405/07, 05/07/2023, 09/29/2022, Additional history exists DXA Scan 05/21/2024 05/21/2021, 05/11, 10/07/2017, Additional history exists COLONOSCOPY-EVERY 3 YRS AGES 18-100 12/09/2024 12/09/2021, 12/09/2021, 10/29/2018, Additional history exists DTaP,Tdap,and Td Vaccines [...] as of this encounter Visit Diagnoses Diagnosis Hyperlipidemia, unspecified hyperlipidemia type Hypertensive kidney disease with stage 3b chronic kidney disease (HCC) Acquired hypothyroidism Unspecified hypothyroidism Prediabetes Other abnormal glucose documented in this encounter Advance Directives Latest Code Status on File Code Status Date Activated Date Inactivated Comments Full Code 09/24/2007 3:51 PM 09/27/2007 3:27 PM Care Teams Automotive Sales Associate Relationship Specialty Start Date End Date Agustín Sin MD [address] [place] [address] [place] [address] PCP - General Family Medicine 05/06/21 documented as of this encounter
--- OUTSIDE RECORDS SUMMARY | 2023-10-18 09:06 | External Medical Summary ---
Author Name Unknown Address Unknown Organization [id number]:[place] [place] [facility] [place] [address] [place] [address] Laboratory Report Ordering Provider Test Date Status ALEJANDRO MARRERO 09/14/2023 12:15:38 Final Observation Date Value Abnormality Reference (Units ) Status Creatinine 09/14/2023 12:15:38 1.2 Above high normal 0.5-1.0 (mg/dL) Final Glomerular filtration rate/1.73 sq M.predicted [Volume Rate/Area] in Serum, Plasma or Blood by Creatinine-based formula (CKD-EPI) 09/14/2023 12:15:38 46 Below low normal >=60 (mL/min) Final eGFR is calculated based on the CKD-EPI 2020 equation Performing Location [facility] [place] [facility] [place] [address] [place] [address]
--- OUTSIDE RECORDS SUMMARY | 2023-10-18 09:06 | External Medical Summary ---
Author Name Unknown Address Unknown Organization K01:LABORATORY [facility] [place] - [address] [place] [address] Laboratory Report Ordering Provider Test Date Status JAMSHID WHITLEY 07/21/2023 10:27:33 Final Observation Date Value Abnormality Reference (Units ) Status TSH 07/21/2023 10:27:33 4.02 0.27-4.20 (uIU/mL) Final Performing Location LABORATORY C - [address] [place] [address]
--- OUTSIDE RECORDS SUMMARY | 2023-10-18 09:06 | External Medical Summary | Summary of Care ---
Author Name Unknown Organization [facility] Address [address] [facility] [place] [address] Phone [phone] Care Team Providers Care Carton Stamper Name Role Phone Agustín Sin MD Primary Care Provide r Reason for Visit * Reason Comments Re-Check Left knee injection Encounter Details Date Type Department Care Team (Late st Contact Info) Description 07/24/2023 12:40 PM EDT Office Visit Family Medicine [address] [place] [phone] Agustín Sin MD [address] [place] [address] [place] [phone] Chronic pain of left knee* Allergies Active Allergy Reactions Criticality Noted Date Comments Lucas Inhibitors 08/14/2003 cough Bee Venom Anaphylaxis High 08/16/2013 Hydrochlorothiazide Medium 11/19/2005 Hypercalcemia And muscle cramps Nizatidine 12/03/2000 leg cramps documented as of this encounter (statuses as of 07/24/2023) Medications Medication Sig Dispensed Refills Start Date End Date Status MIRALAX PO POWDIndications:Co nstipation due to slow transit Dissolve one heaping tablespoon in 8 ounces of water or juice - one dose twice a day as needed for constipation- TAKES NEEDED 1 Bottle 0 4 Active MV-Min-Fe Fum-FA-DHA ( 1) 30-0.975-200 MG Capsule Take 1 Cap by mouth daily. 0 Active Cyanocobalamin (VITAMIN B 12) 500 MCG TABS Take 2,500 mcg by mouth. 0 Active Magnesium 250 MG Oral Tablet Take 1 Tablet by mouth in the morning. 0 Active Diclofenac Sodium 1 % External Gel (Voltaren)Indicati ons:Pain in other joint APPLY A PEA SIZE AMOUNT TOPICALLY TO AFFECTED AREA(S) OF PAINFUL AREA DAILY NEEDED 150 g 3 3 09/29/19 24 Active Calcium Carbonate 600 MG Oral Tablet Take 1 Tablet by mouth in the morning. 0 Active Losartan Potassium 100 MG Oral Tablet (Cozaar)Indication s:HTN, goal below 140/90 TAKE ONE TABLET BY MOUTH EVERY MORNING 100 Tablet 3 3 03/17/20 24 Active Levothyroxine Sodium 50 MCG Oral Tablet (Levoxyl)Indicatio ns:Acquired hypothyroidism TAKE ONE AND ONE-HALF TABLETS BY MOUTH ON THURSDAY AND THURSDAY, THEN TAKE ONE TABLET ALL OTHER DAYS 110 Tablet 1 3 03/21/20 24 Active Famotidine 40 MG Oral Tablet (Pepcid) Take 1 Tablet by mouth in the morning. 90 Tablet 3 3 Active Atorvastatin Calcium 10 MG Oral Tablet (Lipitor)Indicatio ns:Dyslipidemia, goal LDL below 100 TAKE ONE TABLET BY MOUTH TWICE A WEEK 26 Tablet 1 4 06/17/19 25 Active ONETOUCH ULTRA BLUE STRPIndications:Ty pe 2 diabetes mellitus with hemoglobin A1c goal of less than 7.0% ([facility]) TEST 2 TO 3 TIMES DAILY 300 Strip 1 7 07/24/19 24 Discontinued(In dication List Clean Up) [facility] Memory Support Oral Tablet Take by mouth. 0 07/24/19 24 Discontinued Hospital, Clinic, or Other Facility Administered Medication Ordered Dose Route Frequency Start Date End Date Status lidocaine 2 % inj 40 mgIndications:Chronic pain of left knee 40 mg IJ ONCE 07/24/2023 07/24/2023 Ended methylPREDNISolone acetate (Depo-Medrol) 40 MG/ML inj 40 mgIndications:Chronic pain of left knee 40 mg IX ONCE 07/24/2023 07/24/2023 Ended documented as of this encounter (statuses as of 07/24/2023) Active Problems Problem Noted Date Diagnosed Date [...] 3b chronic kidney disease 03/21/2008 EMERY RESEARCH OTHER*[id number] 08/31/2007 GENERAL OSTEOARTHROSIS documented as of this encounter (statuses as of 07/24/2023) Resolved Problems Problem Noted Date Diagnosed Date [...] BMI not known 09/09/2006 02/08/2008 LOC PRIM [id number] 06/01/200610/10 Venous insufficiency 11/19/2005 018 CERVICAL DISC DEGEN 07/23/2005 06/17/19 18 NEPHROPATHY -(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 (250.4=) 04/19/2005 06/17/2017 HYPERTENSIVE RENAL DISEASE [...] as of this encounter (statuses as of 07/24/2023) Immunizations Name Administration Dates Next Due COVID-19 mRNA, LNP-s, No Pre serve, 2-Dose Series (Netsket) 03/20/2021,08/09/2020,07/05/2020 PPD 07/23/2005 Pneumococcal Conjugate Vacc, 13 [...] on file documented as of this encounter Last Filed Vital Signs Vital Sign Reading Time Taken Comments Blood Pressure 136/90 07/24/2023 12:33 PM EDT Pulse 70 07/24/2023 12:33 PM EDT Temperature 35.8 C (96.4 F) 07/24/2023 12:33 PM E DT Respiratory Rate - - Oxygen Saturation 99% 07/24/2023 12:33 PM EDT Inhaled Oxygen Concentration - - Weight 65.9 kg (145 lb 3.2 oz) 07/24/2023 12:33 PM EDT Height - - Body Mass Index 26.13 06/23/2023 12:45 PM EST documented in this encounter Progress Notes * Agustín Sin MD - 07/24/2023 12:43 PM EDTAssociated Order(s): Arthrocentesis Post-Procedure Diagnose(s): Chronic pain of left knee Subjective: HPI: Allie Plasencia is a 78 year old female with hx of HLD, hypothyroidism, HTN, LBBB, GERD, Hx of Gastric bypass (), CKD III, 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 Arthrocentesis Date/Time: 07/24/2023 12:56 PM Performed by: Agustín Sin MD Authorized by: Agustín Sin MD Indications: pain Body area: knee Joint: left knee Local anesthesia used: yes Anesthesia: Local anesthesia used: yes Local Anesthetic: topical anesthetic Sedation: Patient sedated: no Preparation: Patient was prepped and draped in the usual sterile fashion. Needle size: 25 G Ultrasound guidance: no Approach: anterior Methylprednisolone amount (mg): 40mg/ml. Lidocaine 2% amount (ml): 40mg/2ml. Patient tolerance: patient tolerated the procedure well with no immediate complications Agustín Sin MD 07/24/2023 ASSESSMENT/PLAN: Pt tolerated the procedure well - ice qhs - RTC if the symptoms worsen Chronic pain of left knee (Primary) - lidocaine 2 % inj 40 mg - methylPREDNISolone acetate (Depo-Medrol) 40 MG/ML inj 40 mg Agustín Sin MD [place] [phone] documented in this encounter Nursing Notes * Lisseth Bal CMA - 07/24/2023 12:32 PM EDT She saw Neha earlier in the week and is here today for a left knee injection. documented in this encounter Plan of Treatment Upcoming Encounters Date Type Department Care Team (Late st Contact Info) Description 10/14/2023 3:00 PM EDT Office Visit Gastroenterology, [facility] [address] [place] [address] Tiarra Acosta CRNP [address] [place] [address] 10/23/2023 3:00 PM EDT Office Visit Nephrology [address] [place] [address] Basilia Bernal [facility] [address] [facility] [address] 12/15/2023 9:00 AM EDT Nurse Only Ancillary [address] [place] [address] [place], Nurse Annual [address] [place] [address] 02/05/2024 10:40 AM EDT Office Visit Family Medicine [address] [place] [phone] Agustín Sin MD [address] [place] [address] [place] [address] Scheduled Procedures Name Priority Associated Diagnoses Date/Ti me COLONOSCOPY FLEXIBLE PROXIMA L DIAGNOSTIC Recall History of colon polyps Family history of colon cancer Health Maintenance Due Date Last Done Comments COVID-19 Vaccine ( season) 2023 03/20/2021, 08/09/2020, 07/05/2020 Depression Screening 12/12/2023 12/11/2022 Albumin/Creatinine Ratio 01/01/2024 023, 05/07/2022, 09/30/2021, Additional history exists GFR 01/21/2024 07/21/2023, 04/11, 03/05/2023, Additional history exists CKD PHOS USE SMARTSET 99537 03/05/202402/09, 05/07/2022, 09/30/2021, Additional history exists CKD HGB USE SMARTSET 27632 05/07/202405/07, 05/07/2023, 09/29/2022, Additional history exists DXA Scan 05/21/2024 05/21/2021, 05/11, 10/07/2017, Additional history exists TSH 07/20/2024 07/21/2023, 09/09, 07/07/2022, Additional history exists COLONOSCOPY-EVERY 3 YRS AGES [...] Not on filedocumented as of this encounter Procedures Procedure Name Priority Date/Time Associated Diagnosis Comments ND ARTHROCENTESIS ASPIR&/INJ MAJOR JT/BURSA W/O US Routine 07/24/2023 12:56 PM EDT Chronic pain of left knee documented in this encounter Results * ND ARTHROCENTESIS ASPIR&/INJ MAJOR JT/BURSA W/O US (07/24/2023 12:56 PM EDT) Narrative Agustín Sin MD - 07/24/2023 12:56 PM EDT Agustín Sin MD 07/24/2023 1:01 PM Arthrocentesis Date/Time: 07/24/2023 12:56 PM Performed by: Agustín Sin MD Authorized by: Agustín Sin MD Indications: pain Body area: knee Joint: left knee Local anesthesia used: yes Anesthesia: Local anesthesia used: yes Local Anesthetic: topical anesthetic Sedation: Patient sedated: no Preparation: Patient was prepped and draped in the usual sterile fashion. Needle size: 25 G Ultrasound guidance: no Approach: anterior Methylprednisolone amount (mg): 40mg/ml. Lidocaine 2% amount (ml): 40mg/2ml. Patient tolerance: patient tolerated the procedure well with no immediate complications Agustín Sin MD PROCDOC FORM documented in this encounter Visit Diagnoses Diagnosis Chronic pain of left knee- Primary Pain in joint, lower leg documented in this encounter Administered Medications Inactive Administered Medications - up to 3 most recent administrations Medication Order MAR Action Action Date Dose Rate Site lidocaine 2 % inj 40 mg 40 mg (2 mL), Injection, ONCE, On Thu07/24/23 at 1330, For 1 dose Given 07/24/2023 1:05 PM EDT 40 mg Knee Left methylPREDNISolone acetate (Depo-Medrol) 40 MG/ML inj 40 mg 40 mg, Intra-Articular, ONCE, On Thu07/24/23 at 1330, For 1 dose Given 07/24/2023 1:04 PM EDT 40 mg Knee Left documented in this encounter Advance Directives Latest Code Status on File Code Status Date Activated Date Inactivated Comments Full Code 09/24/2007 3:51 PM 09/27/2007 3:27 PM Care Teams Carton Stamper Relationship Specialty Start Date End Date Agustín Sin MD [address] [place] [address] [place] [phone] PCP - General Family Medicine 05/06/21 documented as of this encounter
--- OUTSIDE RECORDS SUMMARY | 2023-10-18 09:06 | External Medical Summary | Summary of Care ---
Author Name Unknown Organization [facility] Address [facility] [address] Phone [phone] Care Team Providers Care Hardware Technician Name Role Phone Agustín Chairez MD Primary Care Provide r Reason for Visit * Reason Comments Medication Refill Encounter Details Date Type Department Care Team (Late st Contact Info) Description 09/18/2023 Refill Family Medicine [facility] [place] [place] [phone] Agustín Chairez MD [address] [place] [address] [place] [phone] Acquired hypothyroidism Allergies Active Allergy Reactions Criticality Noted Date Comments Lucas Inhibitors 08/14/2003 cough Bee Venom Anaphylaxis High 08/16/2013 Hydrochlorothiazide Medium 11/19/2005 Hypercalcemia And muscle cramps Nizatidine 12/03/2000 leg cramps documented as of this encounter (statuses as of 09/19/2023) Medications Medication Sig Dispensed Refills Start Date [...] DAYS 110 Tablet 1 09/19/2023 5 Active Levothyroxine Sodium 50 MCG Oral Tablet (Levoxyl)Indication s:Acquired hypothyroidism TAKE ONE AND ONE-HALF TABLETS BY MOUTH ON THURSDAY AND THURSDAY, THEN TAKE ONE TABLET ALL OTHER DAYS 110 Tablet 1 03/22/2023 4 Discontinue d(Refill) documented as of this encounter (statuses as of 09/19/2023) Active Problems Problem Noted Date Diagnosed Date [...] 3b chronic kidney disease 03/21/2008 EMERY RESEARCH OTHER*[id number] 08/31/2007 GENERAL OSTEOARTHROSIS documented as of this encounter (statuses as of 09/19/2023) Resolved Problems Problem Noted Date Diagnosed Date [...] BMI not known 09/09/2006 02/08/2008 LOC PRIM [id number] 06/01/200610/10 Venous insufficiency 11/19/2005 018 CERVICAL DISC DEGEN 07/23/2005 06/17/19 18 NEPHROPATHY -(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 (250.4=) 04/19/2005 06/17/2017 HYPERTENSIVE RENAL DISEASE [...] as of this encounter (statuses as of 09/19/2023) Immunizations Name Administration Dates Next Due COVID-19 [...] encounter Miscellaneous Notes * Telephone Encounter - Annabella Carias RPh - 09/19/2023 6:17 AM EDT Signed Prescriptions: Disp Refills Levothyroxine Sodium 50 MCG Oral Tablet (L*110 Ta*1 Sig: TAKE ONE AND ONE-HALF TABLETS BY MOUTH ON THURSDAY AND THURSDAY, THEN TAKE ONE TABLET ALL OTHER DAYSAuthorizing Provider: Chino CHAIREZ User: ANNABELLA CARIAS documented in this encounter Plan of Treatment Upcoming Encounters Date Type Department Care Team (Late st Contact Info) Description 09/21/2023 10:45 AM EDT Imaging Radiology [address] [place] [address] 10/23/2023 3:00 PM EDT Office Visit Nephrology [address] [place] [address] Basilia Bernal MD [address] [place] [address] 11/26/2023 10:20 AM EDT Office Visit Dermatology [facility] 200 [facility] [place] [address] Neda Davis PA-C 200 [facility] [place] [phone] 12/15/2023 9:00 AM EDT Nurse Only Ancillary [address] [place] [address] [place], Nurse Annual [address] [place] [address] 01/01/2024 9:00 AM EDT [facility] [place] [address] Tiarra Acosta CRNP [address] [place] [address] 02/05/2024 10:40 AM EDT Office Visit Family Medicine [address] [place] [phone] Agustín Chairez MD [address] [place] [address] [place] [address] Scheduled Procedures Name Priority Associated Diagnoses Date/Ti me COLONOSCOPY FLEXIBLE PROXIMA L DIAGNOSTIC Recall History of colon polyps Family history of colon cancer Health Maintenance Due Date Last Done Comments COVID-19 Vaccine ( season) 2023 03/20/2021, 08/09/2020, 07/05/2020 Depression Screening 12/12/2023 12/11/2022 Albumin/Creatinine Ratio 01/01/2024 023, 05/07/2022, 09/30/2021, Additional history exists CKD PHOS USE SMARTSET 29199 03/05/202402/09, 05/07/2022, 09/30/2021, Additional history exists GFR 03/16/2024 09/14/2023, 07/09, 05/07/2023, Additional history exists CKD HGB USE SMARTSET 19305 05/07/202405/07, 05/07/2023, 09/29/2022, Additional history exists DXA [...] as of this encounter Visit Diagnoses Diagnosis Acquired hypothyroidism Unspecified hypothyroidism documented in this encounter Advance Directives Latest Code Status on File Code Status Date Activated Date Inactivated Comments Full Code 09/24/2007 3:51 PM 09/27/2007 3:27 PM Care Teams Hardware Technician Relationship Specialty Start Date End Date Agustín Chairez MD [address] [place] [address] [place] [phone] PCP - General Family Medicine 05/06/21 documented as of this encounter
--- OUTSIDE RECORDS SUMMARY | 2023-10-18 09:06 | External Medical Summary ---
Author Name Unknown Address Unknown Organization K01:[place] [place] [address] [facility] [address] [place] [address] Laboratory Report Ordering Provider Test Date Status VAL WHITLEYT 07/21/2023 10:27:33 Final Observation Date Value Abnormality Reference (Units ) Status Triglyceride 07/21/2023 10:27:33 101 <=174 ( mg/dL) Final Triglyceride Reference Range s (mg/dL):
<150 Acceptable
150-174 Borderline high
175-499 High
>=500 Very high Cholesterol 07/21/2023 10:27:33 205 Above high normal <200 (mg/dL) Final Total Cholesterol Reference Ranges (mg/dL):
<200 Desirable
200-239 Borderline high
>=240 High HDL 07/21/2023 10:27:33 78 >49 (mg/dL ) Final HDL Cholesterol Reference Ra nges (mg/dL):
>=60 High (Desirable)
<50 Low (Undesirable) For Females
<40 Low (Undesirable) For Males NON-HDL CHOLESTEROL 07/21/2023 10:27:33 127 <=159 (mg/dL) Final Non-HDL Cholesterol Referenc e Range (mg/dL):
<100 Target level for high risk ASCVD patient
<130 Optimal for general population
130-159 Near optimal for general population
160-189 Borderline High
190-219 High
>=220 Very High LDL, (calculated) 07/21/2023 10:27:33 107 <= 129 (mg/dL) Final LDL Cholesterol Reference Ra nges (mg/dL):
<70 Target level for high risk ASCVD patient
<100 Optimal for general population
100-129 Near optimal for general population
130-159 Borderline high
160-189 High
>=190 Very high Performing Location [facility] [place] [address] [facility] [address]
--- OUTSIDE RECORDS SUMMARY | 2023-10-18 09:06 | External Medical Summary | Summary of Care ---
Author Name Unknown Organization [facility] Address 100 [facility] [place] [address] Phone [phone] Care Team Providers Care Pulp Bleacher Name Role Phone Agustín Sin MD Primary Care Provide r Reason for Referral * Precert (Within 10 days (routine)) - Pending Review Specialty Diagnoses / Procedures Referred By Som t Referred To Contact Radiology Diagnoses Dilated bile duct Procedures CT PANCREAS W IV AND W ORAL CONTRAST Tiarra Acosta CRNP [address] [employer] [place] [address] Referral ID Status Reason Start Date Expiration Date V isits Requested Visits Authorized [id number] Pending Review 09/21/2023 999 999 Reason for Visit * Reason Onset Date Comments Outpatient Testing 09/14/2023 Encounter Details Date Type Department Care Team (Late st Contact Info) Description 09/14/2023 Telephone Gastroenterology, [facility] [address] [place] [address] Tiarra Acosta CRNP [address] [employer] [place] [address] Outpatient Testing Allergies Active Allergy Reactions Criticality Noted Date Comments Lucas Inhibitors 08/14/2003 cough Bee Venom Anaphylaxis High 08/16/2013 Hydrochlorothiazide Medium 11/19/2005 Hypercalcemia And muscle cramps Nizatidine 12/03/2000 leg cramps documented as of this encounter (statuses as of 09/14/2023) Medications Medication Sig Dispensed Refills Start Date [...] MORNING 100 Tablet 3 03/18/2023 03/17/2024 Active Levothyroxine Sodium 50 MCG Oral Tablet (Levoxyl)Indications :Acquired hypothyroidism TAKE ONE AND ONE-HALF TABLETS BY MOUTH ON THURSDAY AND THURSDAY, THEN TAKE ONE TABLET ALL OTHER DAYS 110 Tablet 1 03/22/2023 03/21/2024 Active Famotidine 40 MG Oral Tablet (Pepcid) Take 1 Tablet by mouth in the morning. 90 Tablet 3 05/07/2023 Active Atorvastatin Calcium 10 MG Oral Tablet (Lipitor)Indications :Dyslipidemia, goal LDL below 100 TAKE ONE TABLET BY MOUTH TWICE A WEEK 26 Tablet 1 06/18/2023 06/17/2024 Active documented as of this encounter (statuses as of 09/14/2023) Active Problems Problem Noted Date Diagnosed Date [...] 3b chronic kidney disease 03/21/2008 EMERY RESEARCH OTHER*[id number] 08/31/2007 GENERAL OSTEOARTHROSIS documented as of this encounter (statuses as of 09/14/2023) Resolved Problems Problem Noted Date Diagnosed Date [...] BMI not known 09/09/2006 02/08/2008 LOC PRIM [id number] 06/01/200610/10 Venous insufficiency 11/19/2005 018 CERVICAL DISC DEGEN 07/23/2005 06/17/19 18 NEPHROPATHY -(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 (250.4=) 04/19/2005 06/17/2017 HYPERTENSIVE RENAL DISEASE B ENIGN( With renal failure) 04/19/2005 08/18/2007 Rotator cuff rupture 08/18/2003 03/24/2 008 ROTATOR CUFF SYND NOS 06/07/20032007 Enthesopathy [...] as of this encounter (statuses as of 09/14/2023) Immunizations Name Administration Dates Next Due COVID-19 [...] Description 09/21/2023 10:45 AM EDT Imaging Radiology [address] [place] [address] 10/23/2023 3:00 PM EDT [facility] [place] [address] Basilia Bernal MD [address] [place] [address] 11/26/2023 10:20 AM EDT Office Visit Dermatology [facility] [address] [place] [address] Neda Davis PA-C [address] [place] [phone] 12/15/2023 9:00 AM EDT Nurse Only Ancillary [address] [place] [address] [place], Nurse [address] [place] [address] 01/01/2024 9:00 AM EDT Office Visit Gastroenterology, [facility] [address] [place] [address] Tiarra Acsota CRNP [address] [place] [address] 02/05/2024 10:40 AM EDT Office Visit Family Medicine [address] [place] [phone] Agustín Sin MD [address] [place] [address] [place] [address] Scheduled Orders Name Type Priority Associated Diagnoses Orde r Schedule CT PANCREAS W IV AND W ORAL CONTRAST Medical Imaging Routine Dilated bile duct Expected: 09/21/2023, Expires: 10/14/2024 CREATININE Lab Routine Dilated bile duct Expected: 09/14/2023, Expires: 09/13/2024 Scheduled Procedures Name Priority Associated Diagnoses Date/Ti me COLONOSCOPY FLEXIBLE PROXIMA L DIAGNOSTIC Recall History of colon polyps Family history of colon cancer Health Maintenance Due Date Last Done Comments COVID-19 Vaccine ( season) 2023 03/20/2021, 08/09/2020, 07/05/2020 Depression Screening 12/12/2023 12/11/2022 Albumin/Creatinine Ratio 01/01/2024 023, 05/07/2022, 09/30/2021, Additional history exists GFR 01/21/2024 07/21/2023, 04/11, 03/05/2023, Additional history exists CKD PHOS USE SMARTSET 49316 03/05/202402/09, 05/07/2022, 09/30/2021, Additional history exists CKD HGB USE SMARTSET 30262 05/07/202405/07, 05/07/2023, 09/29/2022, Additional history exists DXA [...] as of this encounter Visit Diagnoses Diagnosis Dilated bile duct- Primary Other specified disorders of biliary tract documented in this encounter Advance Directives Latest Code Status on File Code Status Date Activated Date Inactivated Comments Full Code 09/24/2007 3:51 PM 09/27/2007 3:27 PM Care Teams Pulp Bleacher Relationship Specialty Start Date End Date Agustín Sin MD [address] [place] [address] [place] [phone] PCP - General Family Medicine 05/06/21 documented as of this encounter
--- OUTSIDE RECORDS SUMMARY | 2023-10-18 09:06 | External Medical Summary | Summary of Care ---
Author Name Unknown Organization [facility] Address [address] [facility] [place] [address] Phone [phone] Care Team Providers Care Retirement Officer Name Role Phone Agustín Sin MD Primary Care Provide r Reason for Visit * Reason Comments Re-Check Left knee injection Encounter Details Date Type Department Care Team (Late st Contact Info) Description 07/24/2023 12:40 PM EDT Office Visit Family Medicine [address] [place] [phone] Agustín Sin MD [address] [place] [address] [place] [address] Chronic pain of left [...] goal of less than 7.0% ([facility]) TEST 2 TO 3 TIMES DAILY 300 Strip 1 7 07/24/19 24 Discontinued(Id dication List Clean Up) [facility] Memory Support Oral Tablet Take by mouth. 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 documented in this encounter Plan of Treatment Upcoming Encounters Date Type Department Care Team (Late st Contact Info) Description 10/14/2023 3:00 PM EDT Office Visit Gastroenterology, [facility] [address] [place] [address] Tiarra Acosta CRNP [address] [place] [address] 10/23/2023 3:00 PM EDT Office Visit Nephrology [address] [place] [address] Basilia [facility] [address] 12/15/2023 9:00 AM EDT Nurse Only Ancillary [address] [place] [address] [place], Nurse Annual [address] [place] [address] 02/05/2024 10:40 AM EDT Office Visit Family Medicine [address] [place] [phone] Agustín Sin MD [address] [place] [address] [place] [address] Scheduled Procedures Name Priority Associated Diagnoses Date/Ti me COLONOSCOPY FLEXIBLE PROXIMA L DIAGNOSTIC Recall History of colon polyps Family history of colon cancer Health Maintenance Due Date Last Done Comments COVID-19 Vaccine ( season) 2023 03/20/2021, 08/09/2020, 07/05/2020 Depression Screening 12/12/2023 12/11/2022 Albumin/Creatinine Ratio 01/01/2024 023, 05/07/2022, 09/30/2021, Additional history exists GFR 01/21/2024 07/21/2023, 04/11, 03/05/2023, Additional history exists CKD PHOS USE SMARTSET 49268 03/05/202402/09, 05/07/2022, 09/30/2021, Additional history exists CKD HGB USE SMARTSET 59543 05/07/202405/07, 05/07/2023, 09/29/2022, Additional history exists DXA [...] Procedure Name Priority Date/Time Associated Diagnosis Comments NV ARTHROCENTESIS ASPIR&/INJ MAJOR JT/BURSA W/O US Routine 07/24/2023 12:56 PM EDT Chronic pain of left knee documented in this encounter Results * NV ARTHROCENTESIS ASPIR&/INJ MAJOR JT/BURSA W/O US (07/24/2023 [...] 3:51 PM 09/27/2007 3:27 PM Care Teams Retirement Officer Relationship Specialty Start Date End Date Agustín Sin MD [address] [place] [address] [place] [phone] PCP - General Family Medicine 05/06/21 documented as of this encounter
--- OUTSIDE RECORDS SUMMARY | 2023-10-18 09:06 | External Medical Summary | Summary of Care ---
Author Name Unknown Organization [facility] Address 100 [facility] [place] [address] Phone [phone] Care Team Providers Care Learning Center Instructor Name Role Phone Agustín Sin MD Primary Care Provide r Reason for Visit * Reason Comments Re-Check Encounter Details Date Type Department Care Team (Latest Contact Info) Description 07/21/2023 9:40 AM EDT Office Visit Family Medicine [address] [place] [phone] Neha Martínez [address] [place] [phone] HTN, goal below 140/90*; Hypertensive kidney disease with stage 3b chronic kidney disease (HCC); Acquired hypothyroidism; Hyperlipidemia, unspecified hyperlipidemia type; Prediabetes Allergies Active Allergy Reactions Criticality Noted [...] hemoglobin A1c goal of less than 7.0% ([facility]) TEST 2 TO 3 TIMES DAILY 300 [...] 3b chronic kidney disease 03/21/2008 EMERY RESEARCH OTHER*[id number] 08/31/2007 GENERAL OSTEOARTHROSIS documented as of this [...] BMI not known 09/09/2006 02/08/2008 LOC PRIM [id number] 06/01/200610/10 Venous insufficiency 11/19/2005 018 CERVICAL DISC DEGEN 07/23/2005 06/17/19 18 NEPHROPATHY -(NO MENTION ACU TE/ACTIVE DIRECTORY SPECIALIST DIABETIC (250.4=) 04/19/2005 06/17/2017 HYPERTENSIVE RENAL DISEASE [...] 1 966 - 1995 Smokeless Tobacco: Never Tobacco Cessation:Counseling Given: Not Answered Alcohol Use Standard Drinks/Week Comments Yes 1 [...] Sign Reading Time Taken Comments Blood Pressure 132/76 07/21/2023 9:35 AM EDT Pulse 89 07/21/2023 9:35 AM EDT Temperature 35.9 C (96.7 F) 07/21/2023 9:35 AM ED T Respiratory Rate 16 07/21/2023 9:35 AM EDT Oxygen Saturation - - Inhaled Oxygen Concentration - - Weight 64.6 kg (142 lb 6 oz) 07/21/2023 9:35 AM EDT Height - - Body Mass Index 25.63 06/23/2023 12:45 PM EST documented in this encounter Nursing Notes * Cheyenne Gomez LPN - 07/21/2023 9:30 AM EDT Check up Wants another injection in left knee. Has been a long time since she had injection. documented in this encounter Plan of Treatment Upcoming Encounters Date Type Department Care Team (Late st Contact Info) Description 07/24/2023 12:40 PM EDT Office Visit Family Medicine [address] [place] [phone] Agustín Sin MD [address] [place] [address] [place] [address] 10/14/2023 3:00 PM EDT Office Visit Gastroenterology, [facility] [address] [place] [address] Tiarra Acosta CRNP [address] [place] [address] 10/23/2023 3:00 PM EDT Office Visit Nephrology [address] [place] [address] Basilia Bernal MD 200 [facility] [address] 12/15/2023 9:00 AM EDT Nurse Only Ancillary [address] [place] [address] [place], Nurse [address] [place] [address] Pending Results Name Type Priority Associated Diagnoses [...] Routine Prediabetes 07/21/2023 10:27 AM EDT Scheduled Orders Name Type Priority Associated Diagnoses Orde r Schedule LIPID PANEL WITH DIRECT LDL IF TG IS HIGH Lab Routine Hyperlipidemia, unspecified hyperlipidemia type Expected: 07/21/2023, Expires: 07/20/2024 COMPREHENSIVE METABOLIC PANEL Lab Routine Hypertensive kidney disease with stage 3b chronic kidney disease (HCC) Expected: 07/21/2023 (Approximate), Expires: 07/20/2024 TSH Lab Routine Acquired hypothyroidism Expected: 07/21/2023 (Approximate), Expires: 07/20/2024 HEMOGLOBIN A1C Lab Routine Prediabetes Expected: 07/21/2023 (Approximate), Expires: 07/20/2024 Scheduled Procedures Name Priority Associated Diagnoses Date/Ti [...] Additional history exists CKD PHOS USE SMARTSET 91489 03/05/202402/09, 05/07/2022, 09/30/2021, Additional history exists CKD HGB USE SMARTSET 92649 05/07/202405/07, 05/07/2023, 09/29/2022, Additional history exists DXA [...] as of this encounter Visit Diagnoses Diagnosis HTN, goal below 140/90- Primary Unspecified essential hypertension Hypertensive kidney disease with stage 3b chronic kidney disease (HCC) Acquired hypothyroidism Unspecified hypothyroidism Hyperlipidemia, unspecified hyperlipidemia type Prediabetes Other abnormal glucose documented in this encounter Advance Directives Latest Code Status on File Code Status Date Activated Date Inactivated Comments Full Code 09/24/2007 3:51 PM 09/27/2007 3:27 PM Care Teams Learning Center Instructor Relationship Specialty Start Date End Date Agustín Sin MD [address] [place] [address] [place] [address] PCP - General Family Medicine 05/06/21 documented as of this encounter
--- OUTSIDE RECORDS SUMMARY | 2023-10-18 09:06 | External Medical Summary | Summary of Care ---
Author Name Unknown Organization [facility] Address 100 [facility] [place] [address] Phone [phone] Care Team Providers Care Photonics Engineering Technologist Name Role Phone Agustín Sin MD Primary Care Provide r Reason for Referral * Precert (Within 10 days (routine)) - Pending Review Specialty Diagnoses / Procedures Referred By Som t Referred To Contact Radiology Diagnoses Dilated bile duct Procedures CT PANCREAS W IV AND W ORAL CONTRAST Tiarra Acosta CRNP [address] [place] [address] Referral ID Status Reason Start Date Expiration Date V isits Requested Visits Authorized [id number] Pending Review 09/21/[phone] Reason for Visit * Reason Onset Date Comments Outpatient Testing 09/14/2023 Encounter Details Date Type Department Care Team (Late st Contact Info) Description 09/14/2023 Telephone Gastroenterology, [facility] [address] [place] [address] Tiarra Acosta CRNP [address] [employer] [place] [address] Outpatient Testing Allergies Active Allergy Reactions Criticality [...] 3b chronic kidney disease 03/21/2008 EMERY RESEARCH OTHER*[id number] 08/31/2007 GENERAL OSTEOARTHROSIS documented as of this [...] BMI not known 09/09/2006 02/08/2008 LOC PRIM [id number] 06/01/200610/10 Venous insufficiency 11/19/2005 018 CERVICAL DISC DEGEN 07/23/2005 06/17/19 18 NEPHROPATHY -(NO MENTION ACU TE/FOOD MIXER DIABETIC (250.4=) 04/19/2005 06/17/2017 HYPERTENSIVE RENAL DISEASE [...] encounter Miscellaneous Notes * Telephone Encounter - Emelyn Cunningham OSA [...] Description 09/21/2023 10:45 AM EDT Imaging Radiology [address] 132 [facility] [place] [address] 10/23/2023 3:00 PM EDT Office Visit Nephrology [address] [place] [address] Basilia Bernal MD [address] [place] [address] 11/26/2023 10:20 AM EDT Office Visit Dermatology [facility] [address] [place] [address] Neda Davis PA-C [address] [place] [phone] 12/15/2023 9:00 AM EDT Nurse Only Ancillary [address] [place] [address] [place], Nurse Annual [address] [place] [address] 01/01/2024 9:00 AM EDT Office Visit Gastroenterology, [facility] 132 [facility] [place] [address] Tiarra Acosta CRNP 132 [facility] [place] [address] 02/05/2024 10:40 AM EDT Office Visit Family Medicine [address] [place] [phone] Agustín Sin MD [address] [place] [address] [place] [address] Pending Results Name Type Priority Associated Diagnoses Date /Time CREATININE Lab Routine Dilated bile duct 09/14/2023 12:15 PM EDT Scheduled Orders Name Type Priority Associated [...] Additional history exists CKD PHOS USE SMARTSET 11446 03/05/202402/09, 05/07/2022, 09/30/2021, Additional history exists CKD HGB USE SMARTSET 58230 05/07/202405/07, 05/07/2023, 09/29/2022, Additional history exists DXA [...] 3:51 PM 09/27/2007 3:27 PM Care Teams Photonics Engineering Technologist Relationship Specialty Start Date End Date Agustín Sin MD [address] [place] [address] [place] [phone] PCP - General Family Medicine 05/06/21 documented as of this encounter
--- OUTSIDE RECORDS SUMMARY | 2023-10-18 09:06 | External Medical Summary | Summary of Care ---
Author Name Unknown Organization [facility] Address 100 [facility] [place] [address] Phone [phone] Care Team Providers Care Survey Research Analyst Name Role Phone Agustín Sin MD Primary Care Provide r Reason for Visit * Reason Comments Outpatient Testing Encounter Details Date Type Department Care Team (Late st Contact Info) Description 09/14/2023 12:30 PM EDT Laboratory Laboratory [address] [place] [phone] [place] [address] Dilated bile duct Allergies Active Allergy Reactions Criticality Noted Date [...] 3b chronic kidney disease 03/21/2008 EMERY RESEARCH OTHER*[id number] 08/31/2007 GENERAL OSTEOARTHROSIS documented as of this [...] BMI not known 09/09/2006 02/08/2008 LOC PRIM [id number] 06/01/200610/10 Venous insufficiency 11/19/2005 018 CERVICAL DISC DEGEN 07/23/2005 06/17/19 18 NEPHROPATHY -(NO MENTION ACU TE/TANK CLEANER DIABETIC (250.4=) 04/19/2005 06/17/2017 HYPERTENSIVE RENAL DISEASE [...] hemorrhage, perforation, or obstruction 08/02/2007 Mixed dyslipidemia 12/08/200 9 Overview: Per Lipid Taxonomy. Proteinuria 06/17/2017 [...] Description 09/21/2023 10:45 AM EDT Imaging Radiology [address] [place] [address] 10/23/2023 3:00 PM EDT Office Visit Nephrology [address] [place] [address] Basilia Bernal MD [address] [place] [address] 11/26/2023 10:20 AM EDT Office Visit Dermatology [facility] [address] [place] [address] Neda Davis PA-C [address] [place] [phone] 12/15/2023 9:00 AM EDT Nurse Only Ancillary [address] [place] [address] [place], Nurse [address] [place] [address] 01/01/2024 9:00 AM EDT Office Visit Gastroenterology, [facility] 132 [facility] [place] [address] Tiarra Acosta CRNP [address] [place] [address] 02/05/2024 10:40 AM EDT Office Visit Family Medicine [address] [place] [phone] Agustín Sin MD [address] [place] [address] [place] [address] Pending Results Name Type Priority Associated Diagnoses Date /Time CREATININE Lab Routine Dilated bile duct 09/14/2023 12:15 PM EDT Scheduled Procedures Name Priority Associated [...] Additional history exists CKD PHOS USE SMARTSET 00658 03/05/202402/09, 05/07/2022, 09/30/2021, Additional history exists CKD HGB USE SMARTSET 45553 05/07/202405/07, 05/07/2023, 09/29/2022, Additional history exists DXA Scan 05/21/2024 05/21/2021, 05/11, 10/07/2017, Additional history exists HbA1c 07/20/2024 07/21/2023, 04/11, 07/16/2017, Additional history exists TSH 07/20/2024 07/21/2023, 09/09, 07/07/2022, Additional history exists Colonoscopy 12/09/2024 12/09/2021, 05/2021, 10/29/2018, Additional history exists DTaP,Tdap,and Td [...] this encounter Visit Diagnoses Diagnosis Dilated bile duct Other specified disorders of biliary tract documented in this encounter Advance Directives Latest Code Status on File Code Status Date Activated Date Inactivated Comments Full Code 09/24/2007 3:51 PM 09/27/2007 3:27 PM Care Teams Survey Research Analyst Relationship Specialty Start Date End Date Agustín Sin MD [address] [place] [address] [place] [phone] PCP - General Family Medicine 05/06/21 documented as of this encounter
--- OUTSIDE RECORDS SUMMARY | 2023-10-18 09:06 | External Medical Summary | Summary of Care ---
Author Name Unknown Organization [facility] Address 100 [facility] [place] [address] Phone [phone] Care Team Providers Care Channel Executive Name Role Phone Agustín Sin MD Primary Care Provide r Reason for Visit * Reason Comments Re-Check Left knee injection Encounter Details Date Type Department Care Team (Late st Contact Info) Description 07/24/2023 12:40 PM EDT Office Visit Family Medicine [address] [place] [phone] Agustín Sin MD [address] [place] [address] [place] [address] Chronic pain of left [...] goal of less than 7.0% ([facility]) TEST 2 TO 3 TIMES DAILY 300 Strip 1 7 07/24/19 24 Discontinued(Ca dication List Clean Up) [facility] Memory Support Oral Tablet Take by mouth. 0 07/24/19 24 Discontinued Hospital, Clinic, or Other Facility Administered Medication Ordered Dose Route Frequency Start Date End Date Status lidocaine 2 % inj 40 mgIndications:Chronic pain of left knee 40 mg IJ ONCE 07/24/2023 07/25/2023 Active methylPREDNISolone acetate (Depo-Medrol) 40 MG/ML inj 40 mgIndications:Chronic pain of left knee 40 mg IX ONCE 07/24/2023 07/25/2023 Active documented as of this encounter (statuses [...] 3b chronic kidney disease 03/21/2008 EMERY RESEARCH OTHER*[id number] 08/31/2007 GENERAL OSTEOARTHROSIS documented as of this [...] BMI not known 09/09/2006 02/08/2008 LOC PRIM [id number] 06/01/200610/10 Venous insufficiency 11/19/2005 018 CERVICAL DISC DEGEN 07/23/2005 06/17/19 18 NEPHROPATHY -(NO MENTION ACU TE/LIFE SCIENCES TEACHER DIABETIC (250.4=) 04/19/2005 06/17/2017 HYPERTENSIVE RENAL DISEASE [...] mRNA, LNP-s, No Pre serve, 2-Dose Series ([employer]) 03/20/2021,08/09/2020,07/05/2020 PPD 07/23/2005 Pneumococcal Conjugate Vacc, [...] MG/ML inj 40 mg Agustín Sin MD [facility] [address] [address] documented in this encounter Nursing Notes * Lisseth Bal CMA - 07/24/2023 12:32 PM EDT She saw Neha earlier in the week and is here today for a left knee injection. documented in this encounter Plan of Treatment Upcoming Encounters Date Type Department Care Team (Late st Contact Info) Description 10/14/2023 3:00 PM EDT Office Visit Gastroenterology, [facility] [address] [place] [address] Tiarra Acosta CRNP [address] [place] [address] 10/23/2023 3:00 PM EDT Office Visit Nephrology [address] [place] [address] Basilia Bernal MD 200 [facility] [place] [address] 12/15/2023 9:00 AM EDT Nurse Only Ancillary [address] [place] [address] [place], Nurse Annual [address] [place] [address] 02/05/2024 10:40 AM EDT Office Visit Family Medicine [address] [place] [phone] Agustín Sin MD [address] [place] [address] [place] [address] Scheduled Procedures Name Priority Associated Diagnoses Date/Ti me COLONOSCOPY FLEXIBLE PROXIMA L DIAGNOSTIC Recall History of colon polyps Family history of colon cancer Health Maintenance Due Date Last Done Comments COVID-19 Vaccine ( season) 2023 03/20/2021, 08/09/2020, 07/05/2020 Depression Screening 12/12/2023 12/11/2022 Albumin/Creatinine Ratio 01/01/2024 023, 05/07/2022, 09/30/2021, Additional history exists GFR 01/21/2024 07/21/2023, 04/11, 03/05/2023, Additional history exists CKD PHOS USE SMARTSET 32589 03/05/202402/09, 05/07/2022, 09/30/2021, Additional history exists CKD HGB USE SMARTSET 53551 05/07/202405/07, 05/07/2023, 09/29/2022, Additional history exists DXA [...] Procedure Name Priority Date/Time Associated Diagnosis Comments [place] ARTHROCENTESIS ASPIR&/INJ MAJOR JT/BURSA W/O US Routine 07/24/2023 12:56 PM EDT Chronic pain of left knee documented in this encounter Results * RI ARTHROCENTESIS ASPIR&/INJ MAJOR JT/BURSA W/O US (07/24/2023 [...] joint, lower leg documented in this encounter Advance Directives Latest Code Status on File Code Status Date Activated Date Inactivated Comments Full Code 09/24/2007 3:51 PM 09/27/2007 3:27 PM Care Teams Channel Executive Relationship Specialty Start Date End Date Agustín Sin MD [address] [place] [address] [place] [address] PCP - General Family Medicine 05/06/21 documented as of this encounter
--- OUTSIDE RECORDS SUMMARY | 2023-10-18 09:06 | External Medical Summary | Summary of Care ---
Author Name Unknown Organization [facility] Address 100 [facility] [place] [address] Phone [phone] Care Team Providers Care Market Research Assistant Name Role Phone Agustín Sin MD Primary Care Provide r Reason for Visit * Precert (Within 10 days (routine)) - Pending Review Specialty Diagnoses / Procedures Referred By Contsalud t Referred To Contact Radiology Diagnoses Dilated bile duct Procedures CT PANCREAS W IV AND W ORAL CONTRAST Tiarra Acosta CRNP [address] [place] [address] Referral ID Status Reason Start Date Expiration Date V isits Requested Visits Authorized [id number] Pending Review 09/21/[phone] Encounter Details Date Type Department Care Team (Late st Contact Info) Description 09/21/2023 10:45 AM EDT Imaging Radiology [address] 132 [facility] [place] [address] Dilated bile duct Allergies Active Allergy Reactions Criticality Noted Date Comments Lucas Inhibitors 08/14/2003 cough Bee Venom Anaphylaxis High 08/16/2013 Hydrochlorothiazide Medium 11/19/2005 Hypercalcemia And muscle cramps Nizatidine 12/03/2000 leg cramps documented as of this encounter (statuses as of 09/25/2023) Medications Medication Sig Dispensed Refills Start Date [...] DAYS 110 Tablet 1 09/19/2023 09/18/2024 Active Hospital, Clinic, or Other Facility Administered Medication Ordered Dose Route Frequency Start Date End Date Status sodium chloride 0.9 % flush/inj 10 mL 10 mL IV PUSH ONCE 09/21/2023 09/21/2023 Ended documented as of this encounter (statuses as of 09/25/2023) Active Problems Problem Noted Date Diagnosed Date [...] 3b chronic kidney disease 03/21/2008 EMERY RESEARCH OTHER*[id number] 08/31/2007 GENERAL OSTEOARTHROSIS documented as of this encounter (statuses as of 09/25/2023) Resolved Problems Problem Noted Date Diagnosed Date [...] BMI not known 09/09/2006 02/08/2008 LOC PRIM [id number] 06/01/200610/10 Venous insufficiency 11/19/2005 018 CERVICAL DISC DEGEN 07/23/2005 06/17/19 18 NEPHROPATHY -(NO MENTION ACU TE/WHARFMASTER DIABETIC (250.4=) 04/19/2005 06/17/2017 HYPERTENSIVE RENAL DISEASE [...] as of this encounter (statuses as of 09/25/2023) Immunizations Name Administration Dates Next Due COVID-19 [...] Former Cigarettes 1 30 1 966 - 1996 Smokeless Tobacco: Never Alcohol Use Standard Drinks/Week [...] 10/23/2023 3:00 PM EDT Office Visit Nephrology [address] [place] [address] Basilia Bernal MD [address] [place] [address] 11/26/2023 10:20 AM EDT [facility] [address] [place] [address] Neda Davis PA-C [address] [place] [phone] 12/15/2023 9:00 AM EDT Nurse Only Ancillary [address] [place] [address] Jerod, Nurse Annual [facility] [address] [place] [address] [place] [address] 01/01/2024 9:00 AM EDT Office Visit Gastroenterology, [facility] [address] [place] [address] Tiarra Acosta CRNP [address] [place] [address] 02/05/2024 10:40 AM EDT Office Visit Family Medicine [address] [place] [phone] Agustín Sin MD [address] [place] [address] [place] [address] Scheduled Procedures Name Priority Associated Diagnoses Date/Ti me COLONOSCOPY FLEXIBLE PROXIMA L DIAGNOSTIC Recall History of colon polyps Family history of colon cancer Health Maintenance Due Date Last Done Comments COVID-19 Vaccine ( season) 2023 03/20/2021, 08/09/2020, 07/05/2020 Depression Screening 12/12/2023 12/11/2022 Albumin/Creatinine Ratio 01/01/2024 023, 05/07/2022, 09/30/2021, Additional history exists CKD PHOS USE SMARTSET 08848 03/05/202402/09, 05/07/2022, 09/30/2021, Additional history exists GFR 03/16/2024 09/14/2023, 07/09, 05/07/2023, Additional history exists CKD HGB USE SMARTSET 96870 05/07/202405/07, 05/07/2023, 09/29/2022, Additional history exists DXA [...] Procedure Name Priority Date/Time Associated Diagnosis Comments CT PANCREAS W IV AND W ORAL CONTRAST Routine 09/21/2023 10:09 AM EDT Dilated bile duct documented in this encounter Results * CT PANCREAS W [...] biliary ductal dilation Tiarra RICHARDS RAD CT documented in this encounter Visit Diagnoses Diagnosis Dilated bile duct Other specified disorders of biliary tract documented in this encounter Administered Medications Inactive Administered Medications - up to 3 most recent administrations Medication Order MAR Action Action Date Dose Rate Site Iopamidol (Isovue 370) inj 80 mL 80 mL, Intravenous, ONCE, On 09/21/23 at 1011, For 1 dose Given 09/21/2023 10:11 AM EDT 80 mL documented in this encounter Advance Directives Latest Code Status on File Code Status Date Activated Date Inactivated Comments Full Code 09/24/2007 3:51 PM 09/27/2007 3:27 PM Care Teams Market Research Assistant Relationship Specialty Start Date End Date Agustín Sin MD [address] [place] [address] [place] [address] PCP - General Family Medicine 05/06/21 documented as of this encounter
--- OUTSIDE RECORDS SUMMARY | 2023-10-18 09:07 | External Medical Summary | Summary of Care ---
Author Name Unknown Organization [facility] Address [address] [facility] [place] [address] Phone [phone] Care Team Providers Care Collection Advisor Name Role Phone Jacinta Chairez MD Primary Care Provide r Reason for Visit * Reason Comments NEW PATIENT Right upper quadrant pain. * Evaluate & Treat - Unlimited Visits (Within 10 days (routine)) - Authorized Specialty Diagnoses / Procedures Referred By Som miller Referred To Contact Gastroenterology Diagnoses RUQ pain Abnormal MRI of abdomen Jacinta Chairez MD [address] [place] [address] [place] [address] Referral ID Status Reason Start Date Expiration Date Visits Requested Visits Authorized [id number] Authorized Specialty Services Required 3 [phone] Encounter Details Date Type Department Care Team (Latest Contact Info) Description 05/07/2023 1:00 PM EST Office Visit Gastroenterology, [facility] [address] [place] [address] Elida Allen CRNP [address] [place] [address] Abnormal magnetic resonance cholangiopancreatography (MRCP)* Allergies Active Allergy Reactions Criticality Noted Date Comments Lucas Inhibitors 08/14/2003 cough Bee Venom Anaphylaxis High 08/16/2013 Hydrochlorothiazide Medium 11/19/2005 Hypercalcemia And muscle cramps Nizatidine 12/03/2000 leg cramps documented as of this encounter (statuses as of 05/07/2023) Medications Medication Sig Dispensed Refills Start Date End Date Status MIRALAX PO POWDIndications:Con stipation due to slow transit Dissolve one heaping tablespoon in 8 ounces of water or juice - one dose twice a day as needed for constipation- TAKES NEEDED 1 Bottle 0 4 Active ONETOUCH ULTRA BLUE STRPIndications:Typ e 2 diabetes mellitus with hemoglobin A1c goal of less than 7.0% ([facility]) TEST 2 TO 3 TIMES DAILY 300 Strip 1 7 Active Additional Information Patient not taking.Reported on [...] by mouth in the morning. 0 Active Atorvastatin Calcium 10 MG Oral Tablet (Lipitor)Indication s:Dyslipidemia, goal LDL below 100 TAKE ONE TABLET BY MOUTH TWICE A WEEK 26 Tablet 1 3 12/22/19 24 Active Losartan Potassium 100 MG Oral Tablet [...] the morning. 90 Tablet 3 3 Active Famotidine 10 MG Oral Tablet (Pepcid) Take 1 Tablet by mouth in the morning and 1 Tablet before bedtime. 0 05/07/20 23 Discontinued documented as of this encounter (statuses as of 05/07/2023) Active Problems Problem Noted Date Diagnosed Date Primary open-angle glaucoma, right eye, severe s [...] 3b chronic kidney disease 03/21/2008 EMERY RESEARCH OTHER*[id number] 08/31/2007 GENERAL OSTEOARTHROSIS documented as of this encounter (statuses as of 05/07/2023) Resolved Problems Problem Noted Date Diagnosed Date [...] BMI not known 09/09/2006 02/08/2008 LOC PRIM [id number] 06/01/200610/10 Venous insufficiency 11/19/2005 018 CERVICAL DISC DEGEN 07/23/2005 06/17/19 18 NEPHROPATHY -(NO MENTION ACU TE/ICE RESURFACING MACHINE [employer]ATORS DIABETIC (250.4=) 04/19/2005 06/17/2017 HYPERTENSIVE RENAL DISEASE [...] as of this encounter (statuses as of 05/07/2023) Immunizations Name Administration Dates Next Due COVID-19 mRNA, LNP-s, No Pre serve, 2-Dose Series (AG&P) 03/20/2021,08/09/2020,07/05/2020 PPD 07/23/2005 Pneumococcal Conjugate Vacc, 13 [...] Date Smoking Tobacco: Former Cigarettes 1 30 Q uit: 1995 Smokeless Tobacco: Never Tobacco Cessation:Counseling Given: [...] Sign Reading Time Taken Comments Blood Pressure 133/62 05/07/2023 12:36 PM EST Pulse 86 05/07/2023 12:36 PM EST Temperature 36.5 C (97.7 F) 05/07/2023 12:[address] Respiratory Rate - - Oxygen Saturation 97% 05/07/2023 12:36 PM EST Inhaled Oxygen Concentration - - Weight 65.4 kg (144 lb 3.2 oz) 05/07/2023 12:36 PM EST Height 158.8 cm (5' 2.5") 05/07/2023 12:36 PM ES T Body Mass Index 25.95 05/07/2023 12:36 PM EST documented in this encounter Progress Notes * Elida Allen CRNP - 05/07/2023 12:38 PM EST Consult requested by Ref: JACINTA CHAIREZ[[id number]] [address] [place] [address] [place] [address] (office) [phone] (fax) CC: Abnormal CT HPI: 78 year old female pt of Jacinta Chairez MD with a hx of hypothyroidism, peptic ulcerdisease with perforation in 1999, DM-2, CKD, DDD, gastroparesis, arthritis, HTN, Vit D deficiency who presents today for a dilated bile duct (up to 12 mm on US). Symptoms are RUQ and right upper back pain, this is worse after eating, lasting until she takes Pepcid which improves the pain. No yellow eyes or skin. Pt is positive for RAd51C gene (ovarian, breast cancer). Fam hx: all her siblings of cancers. Diagnostic Testing: RUQ US Feb 2023: Gallbladder: Not abnormally distended. No cholelithiasis or demonstrable intraluminal sludge. Incidental note is made of fold or septation. There is no current ultrasound evidence acute cholecystitis. There is intrahepatic biliary dilatation. There is also extrahepatic biliary dilatation with commonduct measurements ranging to a maximum of 12 mm. This is increased as compared to the reported common duct measurement of 7 mm on 08/17/2018. There is no gross choledocholithiasis. Given this findingconsider MRCP in further and follow-up imaging. Colonoscopy 2021: - One 5 mm polyp in the cecum, removed with a cold snare. Resected and retrieved.- Otherwise normal to the terminal ileum, with retroflexed views of the ascending colon and rectum. MRI 04/17/23: Liver: The liver is normal in size and configuration. Bile Ducts: There is mild biliary dilatation, with the proximal CBD measuring up to 1.2 cm in caliber. There is a transition (at the level of the superior aspect of the pancreatic head) with normal caliber distal CBD. No intraluminal filling defect to indicate choledocholithiasis. Gallbladder: Normal. Spleen: Normal in size. Pancreas: Atrophic no pancreatic ductal dilatation. ROS: No lightheadedness, dizziness No fevers, chills, sweats No vision loss, eye pain, redness No oral ulcers No chest pain, palpitations, syncope No cough, shortness of breath, exertional dyspnea or edema No rashes or other skin lesions No new joint pain, swelling, myalgias (does get a red MCP at the thumbs) No bleeding tendencies or excessive bruising A total of 12 systems were reviewed, all others (-). ALLERGIES: Review of patient's allergies indicates: Allergen Reactions Bee Venom Anaphylaxis Hydrochlorothiazide Hypercalcemia And muscle cramps Lucas Inhibitors cough Nizatidine leg cramps PMH/PSH/Soc Hx reviewed, significant for: Past Medical History: Diagnosis Date Abnormal results of liver function studies 10/10/2008 Acquired hypothyroidism 01/16/2015 Acute peptic ulcer, unspecified site, without mention of hemorrhage, perforation, or obstruction 02/09/00 pyloric channel Benign neoplasm of colon colon polyp Carpal tunnel syndrome 08/24/2002 Chronic kidney disease (CKD) Constipation due to slow transit 05/30/2013 Degeneration of lumbosacral intervertebral disc 04/23/2010 Degenerative disc disease, cervical 12/28/2013 Disorder of bone and cartilage 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 (HCC) DIABETES TYPE II W RENAL MANIFEST DM type 2, not at goal (HCC) diagnosed in 1996; started insulin in 2005 Enthesopathy of hip 06/07/2003 Gastroparesis Generalized osteoarthritis History of tobacco use Quit 02/12 HTN, goal below 140/90 Hypertension goal BP (blood pressure) < 140/80 05/01/2014 HYPERTENSIVE RENAL DISEASE BENIGN( With renal failure) 04/19/2005 Hypovolemia 09/25/2007 Impaired fasting glucose 04/23/2014 Leg cramps, sleep related 04/23/2010 Lumbar spinal stenosis 08/09/2015 Mixed dyslipidemia Neurogenic claudication due to lumbar spinal stenosis 08/09/2015 Obesity, Class I, BMI 30.0-34.9 (see actual BMI) 06/17/2017 Other chronic nonalcoholic liver disease FATTY INFILTRATION LIVER Other chronic nonalcoholic liver disease FATTY INFILTRATION LIVER Primary localized osteoarthrosis, lower leg 06/01/2006 Proteinuria Rotator cuff rupture 08/18/2003 Rotator cuff syndrome 06/07/2003 Vitamin D deficiency 01/04/2009 Past Surgical History: Procedure Laterality Date CARDIAC CATH SCANNED RESULT 02/20/2012 normal- [facility], [place], operated by [facility] CATARACT SURGERY,COMPLEX Bilateral 10/2022 [facility] COLONOSCOPY, DIAGNOSTIC (RECTUM) 10/1996 Dr. Shah- polyp COLONOSCOPY, DIAGNOSTIC (RECTUM) 08/25/2013 normal- repeat in 5 years COLONOSCOPY, DIAGNOSTIC (RECTUM) 08/25/2013 COLONOSCOPY FLEXIBLE PROXIMAL DIAGNOSTIC performed by Tomas Ellis MD at ENDOSCOPY [facility] COLONOSCOPY, DIAGNOSTIC (RECTUM) 10/29/2018 hyperplastic polyp, repeat 3 yrs/COLONOSCOPY FLEXIBLE PROXIMAL DIAGNOSTIC performed by Mabel Mcclain DO at ENDOSCOPY [facility] COLONOSCOPY, DIAGNOSTIC (RECTUM) 12/09/2021 benign adenomatous polyp, repeat 3 yrs / COLONOSCOPY FLEXIBLE PROXIMAL DIAGNOSTIC performed by Prudencio Wright MD at ENDOSCOPY [facility] DEXA BODY COMP 1 OR > SITE 01/24/2009 low to moderate risk DIGITAL RECTAL EXAM,ANNUAL 06/1999 EGD, FLEXIBLE, DIAGNOSTIC 02/2000 EGD, FLEXIBLE, DIAGNOSTIC 09/24/2007 UPPER GI ENDOSCOPY DIAGNOSTIC performed by JULI CANSECO at OR [facility] EGD, FLEXIBLE, DIAGNOSTIC 08/18/2018 [facility] FLUORO BARIUM ENEMA 07/1999 FLUORO BARIUM ENEMA 07/2002 normal BREAST ARELI SCREEN BILATERAL Bilateral 03/30/2023 scattered microcalcifications and fibroglandular densities, category 2 repeat 1 year KNEE ARTHROSCOPY/ARTHROPLASTY Right 07/2019 Dr. Marroquin LAPAROSCOPE PROCEDURE, LIVER 09/24/2007 UNLISTED LAPAROSCOPIC PROCEDURE LIVER performed by JULI CANSECO at OR [facility] LAPAROSCOPIC GASTRIC BYPASS/SAURABH-EN-Y 09/24/2007 LAPAROSCOPIC GASTRIC RESTRICTIVE BYPASS SAURABH EN Y performed by JULI CANSECO at OR [facility] MAMMOGRAM SCREENING BILATERAL Bilateral 03/24/2022 scattered fibroglandular densities, category 1 normal, repeat 1 year. MAMMOGRAM SCREENING-BILATERAL 12/1999 MRI ABDOMEN WO CONTRAST 04/17/2023 liver normal, Mild biliary dilatation of uncertain etiology. Transition in caliber of the extrahepatic duct at the level of the superior pancreatic head, with normal caliber distal CBD. Suggest ERCP for further evaluation. OCCULT BLOOD SCREEN, 3 CARD MAIL IN 06/1999 - x 3 REMOVAL OF APPENDIX REMOVAL OF KIDNEY 194 removal of left kidney REMOVAL OF THYROID LESION 1983 benign thyroid nodule REPAIR RECTOCELE SHOULDER ARTHROSCOPY SURGERY 11/2003 right shoulder surgery - Dr. Marroquin SHOULDER ARTHROSCOPY SURGERY 09/2004 right shoulder - Dr. Marroquin SIGMOIDOSCOPY, DIAGNOSTIC 07/1999 SIGMOIDOSCOPY, DIAGNOSTIC 07/2002 normal - Dr. Michaels STRESS TEST 02/12/2012 reversible ischemia distal anterior septal wall to the apex. LVEF 47%. TOTAL ABD HYSTERECTOMY W/WO REMOVAL OF TUBE(S) 1979 US ABDOMEN LIMITED Right 03/05/2023 Intrahepatic and extrahepatic biliary dilatation. Gallbladder: Not abnormally distended. No cholelithiasis or demonstrable intraluminal sludge. 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 6164 Tobacco Use Smoking status: Former Packs/day: 1.00 Years: 30.00 Additional pack years: 0.00 Total pack years: 30.00 Types: Cigarettes Quit date: 1995 Years since quittin.0 Smokeless tobacco: Never Vaping Use Vaping Use: Never used Substance and Sexual Activity Alcohol use: Yes Alcohol/week: 1.0 - 2.0 standard drink of alcohol Types: 1 - 2 5 oz of wine per week Comment: 1-2 glasses of wine per weekend Drug use: No Sexual activity: Yes Partners: Male Social History Narrative for 47yrs and will 48 on 05/2023 will 48yrs. Social Determinants of Health Food Insecurity: No Food Insecurity (12/11/2022) Hunger Vital Sign Worried About Running Out of Food in the Last Year: Never true Ran Out of Food in the Last Year: Never true Family history reviewed and significant for: Family History Problem Relation Age of Onset Heart Disorder Mother Heart Disorder Father Cancer Sister colon Cancer Brother colon Cancer Daughter 60 lung Cancer Daughter 57 ovarian ca No Known Problems Daughter No Known Problems Son No Known Problems Son Cancer Granddaughter 37 breast ca Breast Cancer Granddaughter No outpatient medications have been marked as taking for the 05/07/23 encounter (Office Visit) Elida Luna CRNP. EXAM: BP 133/62 (BP Site: Right Arm, BP Position: Sitting, BP Cuff Size: Regular) | Pulse 86 | Temp 36.5 C (97.7 F) (Tympanic) | Ht 1.588 m (5' 2.5") | Wt 65.4 kg (144 lb 3.2 oz) | SpO2 97% | BMI 25.95kg/m | BSA 1.7 m GENERAL: 78 year old female well developed and well nourished in no acute distress SKIN: + dry/red cracked skin around the lips, otherwise no rashes, ulcers, or spider angiomata HEENT: normocephalic, sclera clear, pharynx normal NECK: supple, no lymphadenopathy, no masses or thyroid enlargement LUNGS: clear to auscultation anterior and posterior HEART: regular rate & rhythm, no murmurs and no gallops ABDOMEN: normo-active bowel sounds, soft, minimal epigastric tenderness, otherwise non -tender, non-distended no masses, no hepatosplenomegaly, no rebound or guarding, no bruits EXTREMITIES: + hand joint w evidence of arthritis; no palmar erythema, no edema, no skin discoloration, no clubbing, no cyanosis NEURO: no lateralizing findings, Sensory/Motor grossly normal IMPRESSION/RECOMMENDATIONS: 78 year old female with Abnormal magnetic resonance cholangiopancreatography (MRCP) (Primary) (mild biliary dilatation, with the proximal CBD measuring up to 1.2 cm in caliber. There is a transition (at the level of the superior aspect of the pancreatic head) with normal caliber distal CBD) - EGD, W/ENDOSCOPIC US - CBC WITH WBC DIFFERENTIAL; Future; Expected date: 05/07/2023 - PT INR; Future; Expected date: 05/07/2023 - COMPREHENSIVE METABOLIC PANEL - lipase, CA 19-9 Other orders - Famotidine 40 MG Oral Tablet (Pepcid); Take 1 Tablet by mouth in the morning. Pt to call if yellow eyes, yellow skin, fevers, unrelenting pain, persistent N/V. Recheck after EGD/EUS. I spent a total of 60 minutes on the date of service in review of patient's record, and previously obtained information in person and appropriate medical visit, discussion and education of plan, withpatient and/or caregiver, placing orders for tests/referral/procedures as medically necessary and documentation of pertinent clinical information in patient's medical records for their visit today. SUSIE [facility] Gastroenterology documented in this encounter Nursing Notes * Tom Mcpherson, DIVYA - 05/07/2023 12:38 PM EST Chief Complaint Patient presents with NEW PATIENT Right upper quadrant pain. Allie Plasencia is a 78 year old female who presents today with pain in her right upper quadrant of her abdomen that began 1-2 months ago. She was told that it is not her liver or gallbladder. She states that she is concerned tat there is something wrong with her pancreas. She states that she was tested for a RAD51C gene and she has a family history of caber on her father's side. Her daughter had ovarian cancer and her granddaughter had breast cancer. She states that she has a history of a gastric bypass in 2008. documented in this encounter Miscellaneous Notes * Addendum Note - Elida Allen CRNP - 05/07/2023 1:11 PM ESTAddended by: ELIDA ALLEN on: 05/07/2023 01:11 PM Modules accepted: Orders documented in this encounter Plan of Treatment Upcoming Encounters Date Type Department Care Team (Latest Contact Info) Description 05/07/2023 1:30 PM EST Laboratory Laboratory, [facility] [address] [place] [id number] [facility] [address] [place] [address] 07/02/2023 10:15 AM EST Hospital Encounter ENDO [facility], Endoscopy Room [facility] [address] [place] [phone] Keily Macdonald, DO [address] [place] [address] 07/02/2023 10:15 AM EST - 07/02/2023 11:00 AM EST Surgery ENDO [facility], Endoscopy Room [facility] [address] [place] [phone] Keily Macdonald, DO [address] [place] [address] ESOPHAGOGASTRODUODENOSCOPY (EGD), FLEXIBLE, TRANSORAL, ENDOSCOPIC ULTRASOUND 07/09/2023 1:40 PM EST Office Visit Family Medicine [address] [phone] Jacinta Chairez MD [address] [place] [address] [place] [address] 07/30/2023 12:00 PM EDT Office Visit Gastroenterology , [facility] [address] [place] [address] Elida Allen CRNP [address] [place] [address] 09/28/2023 3:20 PM EDT Office Visit Dermatology [address] [place] [address] Marilu Mast PA-C [address] [place] [address] [place] [address] 12/15/2023 9:00 AM EDT Nurse Only Ancillary [address] [place] [address] [place], Nurse Annual Wellness [address] [place] [address] [place] [address] Scheduled Orders Name Type Priority Associated Diagnoses Orde r Schedule EGD, W/ENDOSCOPIC US Procedures Routine Abnormal magnetic resonance cholangiopancreatography (MRCP) Ordered: 05/07/2023 CBC WITH WBC DIFFERENTIAL Lab Routine Abnormal magnetic resonance cholangiopancreatography (MRCP) Expected: 05/07/2023, Expires: 05/07/2024 PT INR Lab Routine Abnormal magnetic resonance cholangiopancreatography (MRCP) Expected: 05/07/2023, Expires: 05/07/2024 COMPREHENSIVE METABOLIC PANEL Lab Routine Abnormal magnetic resonance cholangiopancreatography (MRCP) Ordered: 05/07/2023 LIPASE Lab Routine Abnormal magnetic resonance cholangiopancreatography (MRCP) Expected: 05/07/2023, Expires: 05/07/2024 CA 19-9 Lab Routine Abnormal magnetic resonance cholangiopancreatography (MRCP) Expected: 05/07/2023, Expires: 05/07/2024 Scheduled Procedures Name Priority Associated Diagnoses Date/Ti me ESOPHAGOGASTRODUODENOSCOPY ( EGD), FLEXIBLE, TRANSORAL, ENDOSCOPIC ULTRASOUND Abnormal MRI 07/02/2023 10:15 AM EST COLONOSCOPY FLEXIBLE PROXIMA L DIAGNOSTIC Recall History of colon polyps Family history of colon cancer Health Maintenance Due Date Last Done Comments COVID-19 Vaccine ( season) 2023 03/20/2021, 08/09/2020, 07/05/2020 GFR 09/04/2023 03/05/2023, 09/09, 05/07/2022, Additional history exists CKD HGB USE SMARTSET 56977 09/30/202309/29, 09/29/2022, 05/07/2022, Additional history exists TSH 09/30/2023 09/29/2022, 06/12, 05/07/2022, Additional history exists Depression Screening 12/12/2023 12/11/2022 Albumin/Creatinine Ratio 01/01/2024 023, 05/07/2022, 09/30/2021, Additional history exists CKD PHOS USE SMARTSET 66786 03/05/202402/09, 05/07/2022, 09/30/2021, Additional history exists DXA Scan 05/21/2024 05/21/2021, 09/10, 02/15/2014, Additional history exists COLONOSCOPY-EVERY 3 YRS AGES [...] as of this encounter Visit Diagnoses Diagnosis Abnormal magnetic resonance cholangiopancreatography (MRCP)- Primary Abnormal MRI Other nonspecific (abnormal) findings on radiological and other examinations of body structure documented in this encounter Advance Directives Latest Code Status on File Code Status Date Activated Date Inactivated Comments Full Code 09/24/2007 3:51 PM 09/27/2007 3:27 PM Care Teams Collection Advisor Relationship Specialty Start Date End Date Jacinta Chairez MD [address] [place] [address] [place] [address] PCP - General Family Medicine 05/06/21 documented as of this encounter
--- OUTSIDE RECORDS SUMMARY | 2023-10-18 09:07 | External Medical Summary ---
Author Name Unknown Address Unknown Organization K0G:[facility] [place] [address] [place] [address] Laboratory Report Ordering Provider Test Date Status ALEJANDRO MARRERO 05/07/2023 13:51:58 Final Observation Date Value Abnormality Reference (Units ) Status BUN 05/07/2023 13:51:58 22 Above high normal 6-20 (mg/dL) Final Creatinine 05/07/2023 13:51:58 1.2 Above high normal 0.5-1.0 (mg/dL) Final Glomerular filtration rate/1.73 sq M.predicted [Volume Rate/Area] in Serum, Plasma or Blood by Creatinine-based formula (CKD-EPI) 05/07/2023 13:51:58 47 Below low normal >=60 (mL/min) Final eGFR is calculated based on the CKD-EPI 2020 equation SODIUM 05/07/2023 13:51:58 140 135-146 (m mol/L) Final Potassium 05/07/2023 13:51:58 4.6 3.5-5.1 (m mol/L) Final Cl 05/07/2023 13:51:58 104 98-107 (mm ol/L) Final CO2 05/07/2023 13:51:58 24 22-32 (mmo l/L) Final Anion gap 05/07/2023 13:51:58 12 7-15 (mmol /L) Final Glucose 05/07/2023 13:51:58 81 70-120 (mg /dL) Final Albumin 05/07/2023 13:51:58 4.2 3.8-5.0 (g /dL) Final AST (Aspartate aminotransferase) 05/07/2023 13:51:58 46 Above high normal 10-35 (U/L) Final Alk Phos 05/07/2023 13:51:58 97 35-130 (U/ L) Final Bilirubin, Total 05/07/2023 13:51:58 0.2 <=1 .2 (mg/dL) Final Calcium 05/07/2023 13:51:58 9.4 8.4-10.2 ( mg/dL) Final Protein 05/07/2023 13:51:58 6.4 6.0-8.3 (g /dL) Final ALT (Alanine aminotransferase) 05/07/2023 13:51:58 49 Above high normal 10-35 (U/L) Final Performing Location [facility] [facility] - [address] [facility] [address]
--- OUTSIDE RECORDS SUMMARY | 2023-10-18 09:07 | External Medical Summary ---
Author Name Unknown Address Unknown Organization K01:[facility] [place] [facility] [address] [facility] [place] [address] Laboratory Report Ordering Provider Test Date Status JAMSHID WHITLEY 07/21/2023 10:27:33 Final Observation Date Value Abnormality Reference (Units ) Status BUN 07/21/2023 10:27:33 28 Above high normal 6-20 (mg/dL) Final Creatinine 07/21/2023 10:27:33 1.5 Above high normal 0.5-1.0 (mg/dL) Final Glomerular filtration rate/1.73 sq M.predicted [Volume Rate/Area] in Serum, Plasma or Blood by Creatinine-based formula (CKD-EPI) 07/21/2023 10:27:33 36 Below low normal >=60 (mL/min) Final eGFR is calculated based on the CKD-EPI 2020 equation SODIUM 07/21/2023 10:27:33 141 135-146 (m mol/L) Final Potassium 07/21/2023 10:27:33 4.8 3.5-5.1 (m mol/L) Final Cl 07/21/2023 10:27:33 105 98-107 (mm ol/L) Final CO2 07/21/2023 10:27:33 25 22-32 (mmo l/L) Final Anion gap 07/21/2023 10:27:33 11 7-15 (mmol /L) Final Glucose 07/21/2023 10:27:33 106 70-120 (mg /dL) Final Albumin 07/21/2023 10:27:33 4.3 3.8-5.0 (g /dL) Final AST (Aspartate aminotransferase) 07/21/2023 10:27:33 27 10-35 (U/L) Final Alk Phos 07/21/2023 10:27:33 90 35-130 (U/ L) Final Bilirubin, Total 07/21/2023 10:27:33 0.4 <=1 .2 (mg/dL) Final Calcium 07/21/2023 10:27:33 9.6 8.4-10.2 ( mg/dL) Final Protein 07/21/2023 10:27:33 6.7 6.0-8.3 (g /dL) Final ALT (Alanine aminotransferase) 07/21/2023 10:27:33 27 10-35 (U/L) Final Performing Location [facility] [place] [address] [facility] [address]
--- OUTSIDE RECORDS SUMMARY | 2023-10-18 09:07 | External Medical Summary | Summary of Care ---
Author Name Unknown Organization [facility] Address [address] [facility] [place] [address] Phone [phone] Care Team Providers Care Hotel Assistant General Manager Name Role Phone Jacinta Chairez MD Primary Care Provide r Reason for Visit * Reason Comments NEW PATIENT Right upper quadrant pain. * Evaluate & Treat - Unlimited Visits (Within 10 days (routine)) - Authorized Specialty Diagnoses / Procedures Referred By Som miller Referred To Contact Gastroenterology Diagnoses RUQ pain Abnormal MRI of abdomen Jacinta Chairez MD [address] [place] [address] [place] [address] Referral ID Status Reason Start Date Expiration Date Visits Requested Visits Authorized [id number] Authorized Specialty Services Required 3 [phone] Encounter Details Date Type Department Care Team (Latest Contact Info) Description 05/07/2023 1:00 PM EST Office Visit Gastroenterology, [facility] [address] [place] [address] Elida Allen CRNP [address] [place] [address] Abnormal magnetic resonance cholangiopancreatography (MRCP)* Allergies Active [...] hemoglobin A1c goal of less than 7.0% ([facility]) TEST 2 TO 3 TIMES DAILY [...] 3b chronic kidney disease 03/21/2008 EMERY RESEARCH OTHER*[id number] 08/31/2007 GENERAL OSTEOARTHROSIS documented as of this [...] BMI not known 09/09/2006 02/08/2008 LOC PRIM [id number] 06/01/200610/10 Venous insufficiency 11/19/2005 018 CERVICAL DISC DEGEN 07/23/2005 06/17/19 18 NEPHROPATHY -(NO MENTION ACU TE/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 Shah- polyp COLONOSCOPY, DIAGNOSTIC (RECTUM) 08/25/2013 normal- repeat in 5 years COLONOSCOPY, DIAGNOSTIC (RECTUM) 08/25/2013 COLONOSCOPY FLEXIBLE PROXIMAL DIAGNOSTIC performed by Tomas Ellis MD at ENDOSCOPY [facility] COLONOSCOPY, DIAGNOSTIC (RECTUM) 10/29/2018 hyperplastic polyp, repeat 3 yrs/COLONOSCOPY FLEXIBLE PROXIMAL DIAGNOSTIC performed by Mabel Mcclain DO at ENDOSCOPY [facility] COLONOSCOPY, DIAGNOSTIC (RECTUM) 12/09/2021 benign adenomatous polyp, repeat 3 yrs / COLONOSCOPY FLEXIBLE PROXIMAL DIAGNOSTIC performed by Prudencio Wright MD at ENDOSCOPY [facility] DEXA BODY COMP 1 OR > SITE 01/24/2009 low to moderate risk DIGITAL RECTAL EXAM,ANNUAL 06/1999 EGD, FLEXIBLE, DIAGNOSTIC 02/2000 EGD, FLEXIBLE, DIAGNOSTIC 09/24/2007 UPPER GI ENDOSCOPY DIAGNOSTIC performed by JULI CANSECO at OR [facility] EGD, FLEXIBLE, DIAGNOSTIC 08/18/2018 normal/[facility] FLUORO BARIUM ENEMA 07/1999 FLUORO BARIUM ENEMA 07/2002 normal BREAST ARELI SCREEN BILATERAL Bilateral 03/30/2023 scattered microcalcifications and fibroglandular densities, category 2 repeat 1 year KNEE ARTHROSCOPY/ARTHROPLASTY Right 07/2019 Dr. Marroquin LAPAROSCOPE PROCEDURE, LIVER 09/24/2007 UNLISTED LAPAROSCOPIC PROCEDURE LIVER performed by JULI CANSECO at OR [facility] LAPAROSCOPIC GASTRIC BYPASS/SAURABH-EN-Y 09/24/2007 LAPAROSCOPIC GASTRIC RESTRICTIVE BYPASS SAURABH EN Y performed by JLUI CANSECO at OR [facility] MAMMOGRAM SCREENING BILATERAL Bilateral 03/24/2022 scattered fibroglandular [...] Number of children: 4 Occupational History Occupation: [employer] Employer: [id number] Tobacco Use Smoking status: Former Packs/day: 1.00 [...] records for their visit today. SUSIE Addison [facility] Gastroenterology documented in this encounter Nursing [...] Care Team (Late st Contact Info) Description 07/09/2023 1:40 PM EST Office Visit Family Medicine [address] [place] [phone] Jacinta Chairez MD [address] [place] [address] [place] [address] 09/28/2023 3:20 PM EDT Office Visit Dermatology [address] [place] [address] Marilu Mast PA-C [address] [place] [address] [place] [address] 12/15/2023 9:00 AM EDT Nurse Only Ancillary [address] [place] [address] Jerod, Nurse Annual Wellness [address] [place] [address] [place] [address] Scheduled Orders Name Type Priority Associated Diagnoses [...] EGD), FLEXIBLE, TRANSORAL, ENDOSCOPIC ULTRASOUND Abnormal MRI COLONOSCOPY FLEXIBLE PROXIMAL DIAGNOSTIC Recall History of colon polyps Family history of colon cancer Health Maintenance Due Date Last Done Comments COVID-19 Vaccine ( season) 2023 03/20/2021, 08/09/2020, 07/05/2020 GFR 09/04/2023 03/05/2023, 09/09, 05/07/2022, Additional history exists CKD HGB USE SMARTSET 75017 09/30/202309/29, 09/29/2022, 05/07/2022, Additional history exists TSH 09/30/2023 09/29/2022, 06/12, 05/07/2022, Additional history exists Depression Screening 12/12/2023 12/11/2022 Albumin/Creatinine Ratio 01/01/2024 023, 05/07/2022, 09/30/2021, Additional history exists CKD PHOS USE SMARTSET 57398 03/05/202402/09, 05/07/2022, 09/30/2021, Additional history exists DXA [...] Diagnosis Abnormal magnetic resonance cholangiopancreatography (MRCP)- Primary documented in this encounter Advance Directives Latest Code Status on File Code Status Date Activated Date Inactivated Comments Full Code 09/24/2007 3:51 PM 09/27/2007 3:27 PM Care Teams Hotel Assistant General Manager Relationship Specialty Start Date End Date Jacinta Chairez MD [address] [place] [address] [place] [phone] PCP - General Family Medicine 05/06/21 documented as of this encounter
--- OUTSIDE RECORDS SUMMARY | 2023-10-18 09:07 | External Medical Summary ---
Author Name Unknown Address Unknown Organization K01:[facility] [place] [address] [place] [address] Laboratory Report Ordering Provider Test Date Status SUNDAY COFFMAN 05/07/2023 13:51:58 Final Observation Date Value Abnormality Reference (Units ) Status MYCODE SPECIMEN-SST 05/07/2023 13:51:58 Freezing of extracted DNA, whole blood and/or serum. Final Performing Location [facility] [place] [address] [place] [address]
--- OUTSIDE RECORDS SUMMARY | 2023-10-18 09:07 | External Medical Summary ---
Author Name Unknown Address Unknown Organization K01[place] [place] [address] [place] [address] Laboratory Report Ordering Provider Test Date Status ALEJANDRO MARRERO 05/07/2023 13:51:58 Final Observation Date Value Abnormality Reference (Units ) Status Lipase 05/07/2023 13:51:58 57 13-60 (U/L ) Final Performing Location LABORATORY C - [address] [place] [address]
--- OUTSIDE RECORDS SUMMARY | 2023-10-18 09:07 | External Medical Summary | Summary of Care ---
Author Name Unknown Organization [facility] Address [address] [facility] [place] [address] Phone [phone] Care Team Providers Care Contour Band Saw Operator Vertical Name Role Phone Agustín Sin MD Primary Care Provide r Reason for Visit * Reason Comments Outpatient Testing Encounter Details Date Type Department Care Team (Latest Contact Info) Description 05/07/2023 1:30 PM EST Laboratory Laboratory, [facility] [place] [phone] [facility] [address] DoYouRemember Other*[id number]; Abnormal magnetic resonance cholangiopancreatography (MRCP) Allergies Active Allergy Reactions Criticality Noted Date [...] goal of less than 7.0% ([facility]) TEST 2 TO 3 TIMES DAILY 300 [...] MOUTH TWICE A WEEK 26 Tablet 1 12/22/2022 4 Active Losartan Potassium 100 MG Oral Tablet [...] the morning. 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 DIABETIC (250.4=) 04/19/2005 06/17/2017 HYPERTENSIVE RENAL DISEASE [...] 30 Q uit: 1995 Smokeless Tobacco: Never Alcohol Use Standard [...] Department Care Team (Latest Contact Info) Description 07/02/2023 10:15 AM EST Hospital Encounter ENDO [facility], Endoscopy Room [facility] [address] [place] [phone] Keily Macdonald DO [address] [place] [address] 07/02/2023 10:15 AM EST - 07/02/2023 11:00 AM EST Surgery ENDO [facility], Endoscopy Room [facility] [address] [place] [phone] Keily Macdonald DO [address] [place] [address] ESOPHAGOGASTRODUODENOSCOPY (EGD), FLEXIBLE, TRANSORAL, ENDOSCOPIC ULTRASOUND 07/09/2023 1:40 PM EST [facility] [address] [place] [address] [place] [phone] Agustín Sin MD [address] [place] [address] [place] [address] 07/30/2023 12:00 PM EDT Office Visit Gastroenterology , [facility] [address] [place] [address] Tiarra Acosta CRNP [address] [place] [address] 09/28/2023 3:20 PM EDT Office Visit Dermatology [address] [place] [address] Marilu Mast PA-C [address] [place] [address] [place] [address] 12/15/2023 9:00 AM EDT Nurse Only Ancillary [address] [place] [address] [place], Nurse Annual [address] [place] [address] Pending Results Name Type Priority Associated Diagnoses Date /Time MYCODE SUBSEQUENT ADULT Lab Routine MyCode Research Other*[id number] 05/07/2023 1:51 PM EST CBC WITH WBC DIFFERENTIAL Lab Routine Abnormal magnetic resonance cholangiopancreatography (MRCP) 05/07/2023 1:51 PM EST PT INR Lab Routine Abnormal magnetic resonance cholangiopancreatography (MRCP) 05/07/2023 1:51 PM EST LIPASE Lab Routine Abnormal magnetic resonance cholangiopancreatography (MRCP) 05/07/2023 1:51 PM EST CA 19-9 Lab Routine Abnormal magnetic resonance cholangiopancreatography (MRCP) 05/07/2023 1:51 PM EST MYCODE SST1 Lab Routine MyCode Research Other*[id number] 05/07/2023 1:51 PM EST MYCODE SST2 Lab Routine MyCode Research Other*[id number] 05/07/2023 1:51 PM EST CBC Lab Routine Abnormal magnetic resonance cholangiopancreatography (MRCP) 05/07/2023 1:51 PM EST DIFFERENTIAL, AUTOMATED Lab Routine Abnormal magnetic resonance cholangiopancreatography (MRCP) 05/07/2023 1:51 PM EST Scheduled Procedures Name Priority Associated Diagnoses Date/Ti me ESOPHAGOGASTRODUODENOSCOPY ( EGD), FLEXIBLE, TRANSORAL, ENDOSCOPIC ULTRASOUND Abnormal MRI 07/02/2023 10:15 AM EST COLONOSCOPY FLEXIBLE PROXIMA L DIAGNOSTIC Recall History of colon polyps Family history of colon cancer Health Maintenance Due Date Last Done Comments COVID-19 Vaccine ( season) 2023 03/20/2021, 08/09/2020, 07/05/2020 GFR 09/04/2023 03/05/2023, 09/09, 05/07/2022, Additional history exists CKD HGB USE SMARTSET 56947 09/30/202309/29, 09/29/2022, 05/07/2022, Additional history exists TSH 09/30/2023 09/29/2022, 06/12, 05/07/2022, Additional history exists Depression Screening 12/12/2023 12/11/2022 Albumin/Creatinine Ratio 01/01/2024 023, 05/07/2022, 09/30/2021, Additional history exists CKD PHOS USE SMARTSET 98369 03/05/202402/09, 05/07/2022, 09/30/2021, Additional history exists DXA [...] this encounter Visit Diagnoses Diagnosis MyCode Research Other*[id number] Abnormal magnetic resonance cholangiopancreatography (MRCP) Abnormal MRI Other nonspecific (abnormal) findings on radiological and other examinations of body structure documented in this encounter Advance Directives Latest Code Status on File Code Status Date Activated Date Inactivated Comments Full Code 09/24/2007 3:51 PM 09/27/2007 3:27 PM Care Teams Contour Band Saw Operator Vertical Relationship Specialty Start Date End Date Agustín Sin MD [address] [place] [address] [place] [address] PCP - General Family Medicine 05/06/21 documented as of this encounter
--- OUTSIDE RECORDS SUMMARY | 2023-10-18 09:07 | External Medical Summary ---
Author Name Unknown Address Unknown Organization K0G:LABORATORY [facility] - [address] [place] [address] Laboratory Report Ordering Provider Test Date Status ALEJANDRO MARRERO 05/07/2023 13:51:58 Final Observation Date Value Abnormality Reference (Units ) Status WBC, Total 05/07/2023 13:51:58 4.86 4.00-10.8 0 (K/uL) Final RBC 05/07/2023 13:51:58 4.21 3.85-5.15 (M/uL) Final Hemoglobin 05/07/2023 13:51:58 12.4 12.0-15.3 (g/dL) Final HCT 05/07/2023 13:51:58 37.9 36.0-45.2 (%) Final MCV 05/07/2023 13:51:58 90.0 81.5-97.5 (fL) Final MCH 05/07/2023 13:51:58 29.5 27.0-34.0 (pg) Final MCHC 05/07/2023 13:51:58 32.7 32.0-36.0 (g/dL) Final RDW 05/07/2023 13:51:58 15.0 11.5-15.5 (%) Final Platelets 05/07/2023 13:51:58 171 140-400 (K /uL) Final MPV 05/07/2023 13:51:58 10.6 6.6-11.1 ( fL) Final Performing Location LABORATORY [facility] [place] [address] 0 - [address] [place] [address]
--- OUTSIDE RECORDS SUMMARY | 2023-10-18 09:07 | External Medical Summary ---
Author Name Unknown Address Unknown Organization K01:[facility] [place] [address] [place] [address] Laboratory Report Ordering Provider Test Date Status SUNDAY COFFMAN 05/07/2023 13:51:58 Final Observation Date Value Abnormality Reference (Units ) Status MYCODE SPECIMEN-SST 05/07/2023 13:51:58 Freezing of extracted DNA, whole blood and/or serum. Final Performing Location [facility] [place] [address] [place] [address]
--- OUTSIDE RECORDS SUMMARY | 2023-10-18 09:07 | External Medical Summary | Summary of Care ---
Author Name Unknown Organization [facility] Address [address] [facility] [place] [address] Phone [phone] Care Team Providers Care Medical Management Trainer Name Role Phone Agustín Chairez MD Primary Care Provide r Reason for Visit * Reason Comments Medication Refill Encounter Details Date Type Department Care Team (Late st Contact Info) Description 06/18/2023 Refill Family Medicine [address] [place] [phone] Agustín Chairez MD [address] [place] [address] [place] [phone] Dyslipidemia, goal LDL below 100 Allergies Active Allergy Reactions Criticality Noted Date Comments Lucas Inhibitors 08/14/2003 cough Bee Venom Anaphylaxis High 08/16/2013 Hydrochlorothiazide Medium 11/19/2005 Hypercalcemia And muscle cramps Nizatidine 12/03/2000 leg cramps documented as of this encounter (statuses as of 06/18/2023) Medications Medication Sig Dispensed Refills Start Date End Date Status MIRALAX PO POWDIndications:Con stipation due to slow transit Dissolve one heaping tablespoon in 8 ounces of water or juice - one dose twice a day as needed for constipation- TAKES NEEDED 1 Bottle 0 06/07/2013 Active ONETOUCH ULTRA BLUE STRPIndications:Typ e 2 diabetes mellitus with hemoglobin A1c goal of less than 7.0% ([facility]) TEST 2 TO 3 TIMES DAILY 300 [...] WEEK 26 Tablet 1 06/18/2023 5 Active Atorvastatin Calcium 10 MG Oral Tablet (Lipitor)Indication s:Dyslipidemia, goal LDL below 100 TAKE ONE TABLET BY MOUTH TWICE A WEEK 26 Tablet 1 12/22/2022 4 Discontinu ed(Refill) documented as of this encounter (statuses as of 06/18/2023) Active Problems Problem Noted Date Diagnosed Date [...] 3b chronic kidney disease 03/21/2008 EMERY RESEARCH OTHER*[id number] 08/31/2007 GENERAL OSTEOARTHROSIS documented as of this encounter (statuses as of 06/18/2023) Resolved Problems Problem Noted Date Diagnosed Date [...] BMI not known 09/09/2006 02/08/2008 LOC PRIM [id number] 06/01/200610/10 Venous insufficiency 11/19/2005 018 CERVICAL DISC DEGEN 07/23/2005 06/17/19 18 NEPHROPATHY -(NO MENTION ACU TE/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 WEBBING DIABETIC (250.4=) 04/19/2005 06/17/2017 HYPERTENSIVE RENAL DISEASE [...] as of this encounter (statuses as of 06/18/2023) Immunizations Name Administration Dates Next Due COVID-19 [...] encounter Miscellaneous Notes * Telephone Encounter - Katie Encarnacion [facility] - 06/18/2023 1:28 PM ESTSigned Prescriptions: Disp Refills Atorvastatin Calcium 10 MG Oral Tablet (Li*26 Tab*1 Sig: TAKE ONE TABLET BY MOUTH TWICE A WEEKAuthorizing Provider: Chino CHAIREZ User: KATIE ENCARNACION documented in this encounter Plan of Treatment Upcoming Encounters Date Type Department Care Team (Latest Contact Info) Description 07/02/2023 10:15 AM EST Hospital Encounter ENDO [facility], Endoscopy Room [facility] [address] [place] [phone] Keily Macdonald DO [address] [place] [address] 07/02/2023 10:15 AM EST - 07/02/2023 11:00 AM EST Surgery ENDO [facility], Endoscopy Room [facility] [address] [place] [phone] Keily Macdonald DO [address] [place] [address] ESOPHAGOGASTRODUODENOSCOPY (EGD), FLEXIBLE, TRANSORAL, ENDOSCOPIC ULTRASOUND 07/09/2023 1:40 PM EST Office Visit Family Medicine [address] [place] [phone] Agustín Chairez MD [address] [place] [address] [place] [address] 07/30/2023 12:00 PM EDT Office Visit Gastroenterology , [facility] [address] [place] [address] Tiarra Acosta CRNP [address] [place] [address] 09/28/2023 3:20 PM EDT Office Visit Dermatology [address] [place] [address] Marilu Mast PA-C [address] [place] [address] [place] [address] 10/23/2023 3:00 PM EDT Office Visit Nephrology [address] [place] [address] Basilia Bernal MD [address] [facility] [place] [address] 12/15/2023 9:00 AM EDT Nurse Only Ancillary [address] [place] [address] Jerod, Nurse Annual Wellness [address] [place] [address] [place] [address] Scheduled Procedures Name Priority Associated Diagnoses Date/Ti me ESOPHAGOGASTRODUODENOSCOPY ( EGD), FLEXIBLE, TRANSORAL, ENDOSCOPIC ULTRASOUND Abnormal MRI 07/02/2023 10:15 AM EST COLONOSCOPY FLEXIBLE PROXIMA L DIAGNOSTIC Recall History of colon polyps Family history of colon cancer Health Maintenance Due Date Last Done Comments COVID-19 Vaccine (2022- season) 2023 03/20/2021, 08/09/2020, 07/05/2020 TSH 09/30/2023 09/29/2022, 06/12, 05/07/2022, Additional history exists GFR 11/06/2023 05/07/2023, 02/09, 09/29/2022, Additional history exists Depression Screening 12/12/2023 12/11/2022 Albumin/Creatinine Ratio 01/01/2024 023, 05/07/2022, 09/30/2021, Additional history exists CKD PHOS USE SMARTSET 97180 03/05/202402/09, 05/07/2022, 09/30/2021, Additional history exists CKD HGB USE SMARTSET 29989 05/07/202405/07, 05/07/2023, 09/29/2022, Additional history exists DXA [...] as of this encounter Visit Diagnoses Diagnosis Dyslipidemia, goal LDL below 100 Other and unspecified hyperlipidemia Abnormal MRI Other nonspecific (abnormal) findings on radiological and other examinations of body structure documented in this encounter Advance Directives Latest Code Status on File Code Status Date Activated Date Inactivated Comments Full Code 09/24/2007 3:51 PM 09/27/2007 3:27 PM Care Teams Medical Management Trainer Relationship Specialty Start Date End Date Agustín Chairez MD [address] [place] [address] [place] [address] PCP - General Family Medicine 05/06/21 documented as of this encounter
--- OUTSIDE RECORDS SUMMARY | 2023-10-18 09:07 | External Medical Summary | Summary of Care ---
Author Name Unknown Organization [facility] Address [address] [facility] [place] [address] Phone [phone] Care Team Providers Care Purchasing Contracting Clerk Name Role Phone Agustín Sin MD Primary Care Provide r Reason for Visit * Reason Onset Date Comments Test Results 07/09/2023 EGD Encounter Details Date Type Department Care Team (Late st Contact Info) Description 07/09/2023 Telephone Gastroenterology, [facility] [address] [place] [address] Tiarra Acosta CRNP [address] [place] [id number] Test Results (EGD) Allergies Active Allergy Reactions Criticality Noted Date Comments Lucas Inhibitors 08/14/2003 cough Bee Venom Anaphylaxis High 08/16/2013 Hydrochlorothiazide Medium 11/19/2005 Hypercalcemia And muscle cramps Nizatidine 12/03/2000 leg cramps documented as of this encounter (statuses as of 07/10/2023) Medications Medication Sig Dispensed Refills Start Date End Date Status MIRALAX PO POWDIndications:Cons tipation due to slow transit Dissolve one heaping tablespoon in 8 ounces of water or juice - one dose twice a day as needed for constipation- TAKES NEEDED 1 Bottle 0 06/07/2013 Active ONETOUCH ULTRA BLUE STRPIndications:Type 2 diabetes mellitus with hemoglobin A1c goal of less than 7.0% ([facility]) TEST 2 TO 3 TIMES [...] NEEDED 150 g 3 09/29/2022 4 Active Additional Information Patient not taking.Reported on 06/23/2023 Calcium Carbonate 600 MG Oral Tablet Take [...] as of this encounter (statuses as of 07/10/2023) Active Problems Problem Noted Date Diagnosed Date Primary open-angle glaucoma, right eye, severe s tage 07/14/2022 Chronic kidney disease, stage 3b 08/26/2021 Mild tricuspid regurgitation 05/06/2021 Overweight (BMI 25.0-29.9) 01/31/2019 LBBB (left bundle branch block) 07/13/2018 Gastroesophageal reflux disease with esophagitis 07/13/2018 Esophageal dysphagia 07/13/2018 Advance directive on file 06/17/2017 Seasonal allergic rhinitis due to pollen 02/07/2 018 S/P gastric bypass 06/17/2017 Overview: RYGB Acquired hypothyroidism 01/16/2015 Constipation due to slow transit 05/30/2013 DYSLIPIDEMIA, GOAL LDL BELOW 100 04/17/2009 Overview: Per Lipid Taxonomy. HTN, goal below 140/90 03/16/2009 Overview: Modified per HTN Taxonomy. Solitary kidney, acquired 06/23/2008 Hypertensive kidney disease with stage 3b chronic kidney disease 03/21/2008 EMERY RESEARCH OTHER*[id number] 08/31/2007 GENERAL OSTEOARTHROSIS documented as of this encounter (statuses as of 07/10/2023) Resolved Problems Problem Noted Date Diagnosed Date [...] BMI not known 09/09/2006 02/08/2008 LOC PRIM [id number] 06/01/200610/10 Venous insufficiency 11/19/2005 018 CERVICAL DISC DEGEN 07/23/2005 06/17/19 18 NEPHROPATHY -(NO MENTION ACU TE/WIRED [employer] (250.4=) 04/19/2005 06/17/2017 HYPERTENSIVE RENAL DISEASE [...] as of this encounter (statuses as of 07/10/2023) Immunizations Name Administration Dates Next Due COVID-19 mRNA, LNP-s, No Pre serve, 2-Dose Series ([employer]) 03/20/2021,08/09/2020,07/05/2020 PPD 07/23/2005 Pneumococcal Conjugate Vacc, 13 [...] encounter Miscellaneous Notes * Telephone Encounter - Danii Brock CRNP - 07/10/2023 1:15 PM EST I called and spoke w pt. Questions and concerns addressed. SUSIE Simmons * Telephone Encounter - Tracy Ochoa OSA - 07/09/2023 3:41 PM EST Patient came in requesting a phone call to go over EGD results. If Tiarra could please contact her. Pt requested after 4:00. documented in this encounter Plan of Treatment Upcoming Encounters Date Type Department Care Team (Late st Contact Info) Description 07/21/2023 9:40 AM EDT Office Visit Family Medicine [address] [place] [phone] Neha Martínez CRNP [address] [place] [address] [place] [address] 09/28/2023 3:20 PM EDT Office Visit Dermatology [address] [place] [address] Marilu Mast PA-C [address] [place] [address] [place] [address] 10/14/2023 3:00 PM EDT Office Visit Gastroenterology, [facility] [address] [place] [address] Tiarra Acosta CRNP [address] [place] [address] 10/23/2023 3:00 PM EDT Office Visit Nephrology [address] [place] [address] Basilia Bernal [facility] [address] [facility] [address] 12/15/2023 9:00 AM EDT Nurse Only Ancillary [address] [place] [address] [place], Nurse [address] [place] [address] Scheduled Procedures Name Priority Associated Diagnoses Date/Ti [...] Additional history exists CKD PHOS USE SMARTSET 51371 03/05/202402/09, 05/07/2022, 09/30/2021, Additional history exists CKD HGB USE SMARTSET 96722 05/07/202405/07, 05/07/2023, 09/29/2022, Additional history exists DXA [...] filedocumented as of this encounter Advance Directives Latest Code Status on File Code Status Date Activated Date Inactivated Comments Full Code 09/24/2007 3:51 PM 09/27/2007 3:27 PM Care Teams Purchasing Contracting Clerk Relationship Specialty Start Date End Date Agustín Sin MD [address] [place] [address] [place] [address] PCP - General Family Medicine 05/06/21 documented as of this encounter
--- OUTSIDE RECORDS SUMMARY | 2023-10-18 09:07 | External Medical Summary | Summary of Care ---
Author Name Unknown Organization [facility] Address [address] [facility] [place] [address] Phone [phone] Care Team Providers Care Junior Linux Administrator Name Role Phone Agustín Sin MD Primary Care Provide r Reason for Visit * Auth/Cert Specialty Diagnoses / Procedures Referred By Som miller Referred To Contact Diagnoses Abnormal MRI Abnormal MRI [R93.89] Procedures EGD, W/ENDOSCOPIC US ESOPHAGOGASTRODUODENOSCOPY (EGD), FLEXIBLE, TRANSORAL, ENDOSCOPIC ULTRASOUND Referral ID Status Reason Start Date Expiration Date Visits Re quested Visits Authorized [id number] Encounter Details Date Type Department Care Team (Latest Contact Info) Description 07/02/2023 9:02 AM EST - 07/02/2023 11:23 AM [facility] [place] Hospital Encounter ENDO [facility], Endoscopy Room [facility] [address] [place] [phone] Keily Macdonald, [address] [place] [address] Various: UGI,UEUS Discharge Disposition: Home - Self Care Allergies Active Allergy Reactions Criticality Noted Date Comments Lucas Inhibitors 08/14/2003 cough Bee Venom Anaphylaxis High 08/16/2013 Hydrochlorothiazide Medium 11/19/2005 Hypercalcemia And muscle cramps Nizatidine 12/03/2000 leg cramps documented as of this encounter (statuses as of 07/02/2023) Medications Medication Sig Dispensed Refills Start Date End Date Status MIRALAX PO POWDIndications:Cons tipation due to slow transit Dissolve one heaping tablespoon in 8 ounces of water or juice - one dose twice a day as needed for constipation- TAKES NEEDED 1 Bottle 0 06/07/2013 Active ONETOUCH ULTRA BLUE STRPIndications:Type 2 diabetes mellitus with hemoglobin A1c goal of less than 7.0% ([facility]) TEST 2 TO 3 TIMES [...] as of this encounter (statuses as of 07/02/2023) Active Problems Problem Noted Date Diagnosed Date [...] 3b chronic kidney disease 03/21/2008 EMERY RESEARCH OTHER*[id number] 08/31/2007 GENERAL OSTEOARTHROSIS documented as of this encounter (statuses as of 07/02/2023) Resolved Problems Problem Noted Date Diagnosed Date [...] BMI not known 09/09/2006 02/08/2008 LOC PRIM [id number] 06/01/200610/10 Venous insufficiency 11/19/2005 018 CERVICAL DISC DEGEN 07/23/2005 06/17/19 18 NEPHROPATHY -(NO MENTION ACU TE/[facility]ILDREN'S INSTIT[facility] ATTENDANT DIABETIC (250.4=) 04/19/2005 06/17/2017 HYPERTENSIVE RENAL DISEASE [...] as of this encounter (statuses as of 07/02/2023) Immunizations Name Administration Dates Next Due COVID-19 mRNA, LNP-s, No Pre serve, 2-Dose Series (Signadyne) 03/20/2021,08/09/2020,07/05/2020 PPD 07/23/2005 Pneumococcal Conjugate Vacc, 13 [...] Sign Reading Time Taken Comments Blood Pressure 138/71 07/02/2023 11:08 AM EST Pulse 58 07/02/2023 11:08 AM EST Temperature 36.3 C (97.4 F) 07/02/2023 11:[address] Respiratory Rate 16 07/02/2023 11:08 AM EST Oxygen Saturation 100% 07/02/2023 11:08 AM EST Inhaled Oxygen Concentration - - Weight 65.3 kg (144 lb) 06/23/2023 12:45 PM EST Height 158.8 cm (5' 2.5") 06/23/2023 12:45 PM ES T Body Mass Index 25.92 06/23/2023 12:45 PM EST documented in this encounter H&P Notes * Keily Macdonald DO - 07/02/2023 10:30 AM EST Endoscopy Pre-Procedure Assessment Name: Allie Plasencia Date: 07/02/2023 Time: 10:30 AM Procedure(s): Upper GI Endoscopy; with Indication(s) of upper abdominal symptoms that persist despite an appropriate trial of therapy Endoscopic Ultrasound; with Indication(s) of evaluation of abnormalities on radiologic study Endoscopy Pre-Procedure Assessment: Prior to the procedure, the patient is identified. The patient's history, medications and allergieshave been reviewed. The patient is competent. The risks and benefits of the proposed procedure and the planned sedation have been discussed with the patient. All questions have been answered and informed consent for the procedure has been obtained. Prior to Admission medications Medication Sig Last Dose Discont. Brainstrong Memory Support Oral Tablet Take by mouth. 07/01/2023 Atorvastatin Calcium 10 MG Oral Tablet (Lipitor) TAKE ONE TABLET BY MOUTH TWICE A WEEK 07/01/2023 Famotidine 40 MG Oral Tablet (Pepcid) Take 1 Tablet by mouth in the morning. Past Week Levothyroxine Sodium 50 MCG Oral Tablet (Levoxyl) TAKE ONE AND ONE-HALF TABLETS BY MOUTH ON THURSDAY AND THURSDAY, THEN TAKE ONE TABLET ALL OTHER DAYS 07/01/2023 Losartan Potassium 100 MG Oral Tablet (Cozaar) TAKE ONE TABLET BY MOUTH EVERY MORNING 07/01/2023 Calcium Carbonate 600 MG Oral Tablet Take 1 Tablet by mouth in the morning. 07/01/2023 Magnesium 250 MG Oral Tablet Take 1 Tablet by mouth in the morning. 07/01/2023 Cyanocobalamin (VITAMIN B 12) 500 MCG TABS Take 2,500 mcg by mouth. 07/01/2023 MV-Min-Fe Fum-FA-DHA ( 1) 30-0.975-200 MG Capsule Take 1 Cap by mouth daily. 07/01/2023 Diclofenac Sodium 1 % External Gel (Voltaren) APPLY A PEA SIZE AMOUNT TOPICALLY TO AFFECTED AREA(S)OF PAINFUL AREA DAILY NEEDED Patient not taking: Reported on 06/23/2023 Not Taking ONETOUCH ULTRA BLUE STRP TEST 2 TO 3 TIMES DAILY Patient not taking: Reported on 05/07/2023 Not Taking MIRALAX PO POWD Dissolve one heaping tablespoon in 8 ounces of water or juice - one dose twice a day as needed for constipation- TAKES NEEDED Review of patient's allergies indicates: Allergen Reactions Bee Venom Anaphylaxis Hydrochlorothiazide Hypercalcemia And muscle cramps Lucas Inhibitors cough Nizatidine leg cramps Ht 1.588 m (5' 2.5") | Wt 65.3 kg (144 lb) | BMI 25.92 kg/m | BSA 1.7 m Physical Exam: Mental Status Examination: alert and oriented. Airway Examination: normal oropharyngeal airway and neck mobility. Respiratory Examination: poor air movement. CV Examination: regular rate and rhythm. ASA Grade: III - A patient with severe systemic disease. Abdomen: soft and nontender MRI findings FINDINGS Liver: The liver is normal in [...] scoliosis and degenerative changes in the spine. IMPRESSION IMPRESSION Mild biliary dilatation of uncertain etiology. Transition in caliber of the extrahepatic duct at the level of the superior pancreatic head, with normal caliber distal CBD. Suggest ERCP for further evaluation. Latest Reference Range & Units 05/07/23 13:51 Sodium 135 - 146 mmol/L 140 Potassium 3.5 - 5.1 mmol/L 4.6 Chloride 98 - 107 mmol/L 104 CO2 22 - 32 mmol/L 24 BUN 6 - 20 mg/dL 22 (H) Creatinine 0.5 - 1.0 mg/dL 1.2 (H) Estimated Glomerular Filtration Rate >=60 mL/min 47 (L) Anion Gap 7 - 15 mmol/L 12 Glucose 70 - 120 mg/dL 81 Calcium 8.4 - 10.2 mg/dL 9.4 Protein 6.0 - 8.3 g/dL 6.4 Lipase 13 - 60 U/L 57 INR 0.8 - 1.2 1.0 Prothrombin Time 11.6 - 15.2 seconds 13.0 CBC Rpt CBC WITH WBC DIFFERENTIAL Rpt WBC 4.00 - 10.80 K/uL 4.86 HGB 12.0 - 15.3 g/dL 12.4 HCT 36.0 - 45.2 % 37.9 MCV 81.5 - 97.5 fL 90.0 PLT 140 - 400 K/uL 171 (H): Data is abnormally high (L): Data is abnormally low Rpt: View report in Results Review for more information Latest Reference Range & Units 08/06/20 11:49 09/30/21 14:22 03/05/23 13:54 05/07/23 13:51 Albumin 3.8 - 5.0 g/dL 4.6 4.4 4.5 4.2 AST 10 - 35 U/L 33 29 46 (H) ALT 10 - 35 U/L 38 (H) 31 49 (H) Alkaline Phosphatase 35 - 130 U/L 103 81 97 Bilirubin, Total <=1.2 mg/dL 0.3 0.3 0.2 (H): Data is abnormally high This patient has undergone a preprocedural evaluation. A determination has been made to proceed with the planned procedure under [facility] [place] procedural guidelines and the [facility] Non-Emergent, Elective Medical Services and Treatment Recommendations (published on 08-16-19). The community and hospital prevalence of COVID-19 has been discussed as well as this patient's specific risks associated with SARS-CoV-19 infection. Based upon the clinical acuity and patient-specific care considerations, this procedure is deemed a Tier II - Intermediate acuity treatment or service with either progression or the threat of progressive disease related to the delay in treatment. Not providing the service has the potential for increasing morbidity or mortality. After reviewing the risks and benefits, the patient is deemed in satisfactory condition to undergo the procedure. The anesthesia plan is to use general anesthesia. We have discussed the risks and benefits of upper endoscopy to include bleeding, infection, perforation, discomfort, aspiration and need for follow-up studies. I have discussed the risks and benefits of EUS to include (not limited to) bleeding, infection, perforation, pain, aspiration, cardiac complications, pancreatitis and insufficient cellularity. Keily Macdonald DO 07/02/2023 documented in this encounter Procedure Notes * Agustín Sin MD - 07/02/2023 10:41 AM ESTAssociated Order(s): UPPER ENDOSCOPIC U/S [facility] Patient Name: Allie Plasencia Procedure Date: 07/02/2023 10:41 AM Date of : 1945 Admit Type: Outpatient Note Status: Finalized Date of : 1945 Admit Type: Outpatient Age: 78 Room: Advanced Endo Gender: Female Note Status: Finalized Procedure: Upper EUS Indications: Common bile duct dilation (acquired) seen on MRI Providers: Keily Macdonald DO (Doctor) Referring MD: Agustín Sin (Referring MD), Tiarra Acosta NP (Referring MD) Medicines: General Anesthesia Complications: No immediate complications. Estimated blood loss: Minimal. Procedure: Pre-Anesthesia Assessment: - Prior to the procedure, a History and Physical was performed, and patient medications, allergies and sensitivities were reviewed. The patient's tolerance of previous anesthesia was reviewed. - The risks and benefits of the procedure and the sedation options and risks were discussed with the patient. All questions were answered and informed consent was obtained. - Patient identification and proposed procedure were verified prior to the procedure by the physician, the nurse and the flight engineer instructor. The procedure was verified in the pre-procedure area in the procedure room. - Pre-procedure physical examination revealed no contraindications to sedation. - ASA Grade Assessment: III - A patient with severe systemic disease. - After reviewing the risks and benefits, the patient was deemed in satisfactory condition to undergo the procedure. - The anesthesia plan was to use general anesthesia. - Immediately prior to administration of medications, the patient was re- assessed for adequacy to receive sedatives. - The heart rate, respiratory rate, oxygen saturations, blood pressure, adequacy of pulmonary ventilation, and response to care were monitored throughout the procedure. - The physical status of the patient was re-assessed after the procedure. After obtaining informed consent, the endoscope was passed under direct vision. All instruments were visually inspected immediately before and after removal from the patient to ensure they are fully intact. Throughout the procedure, the patient's blood pressure, pulse, and oxygen saturations were monitored continuously. The GF-UE160 Endoscope ([id number]) was introduced through the mouth, and advanced to the efferent jejunal loop. The upper EUS was accomplished without difficulty. The patient tolerated the procedure well. Findings & Specimens: ENDOSONOGRAPHIC FINDING: : There was no sign of significant endosonographic abnormality in the pancreatic body, pancreatic tail and main pancreatic duct. The pancreatic duct measured up to 1 mm in diameter. No masses, no cysts. No lymphadenopathy seen. There was no sign of significant endosonographic abnormality in the left lobe of the liver. Homogeneous parenchyma was identified. Impression: - There was no sign of significant pathology in the pancreatic body, pancreatic tail and main pancreatic duct. - There was no evidence of significant pathology in the left lobe of the liver. Recommendation: - The patient will be observed post-procedure, until all discharge criteria are met. - Limited EUS due to prior Gastric Bypass - Consider a follow-up pancreatic CT in 3 months. Keily Macdonald DO 07/02/2023 10:53:32 AM This report has been signed electronically. * Agustín Sin MD - 07/02/2023 10:27 AM ESTAssociated Order(s): UPPER GI ENDOSCOPY [facility] Patient Name: Allie Plasencia Procedure Date: 07/02/2023 10:27 AM Date of : 1945 Admit Type: Outpatient Note Status: Finalized Date of : 1945 Admit Type: Outpatient Age: 78 Room: Advanced [facility] Gender: Female Note Status: Finalized Procedure: Upper GI endoscopy Indications: Epigastric abdominal pain Providers: Keily Macdonald DO (Doctor) Referring MD: Agustín Sin (Referring MD), Tiarra Acosta NP (Referring MD) Medicines: General Anesthesia Complications: No immediate complications. Estimated blood loss: Minimal. Procedure: Pre-Anesthesia Assessment: - Prior to the procedure, a History and Physical was performed, and patient medications, allergies and sensitivities were reviewed. The patient's tolerance of previous anesthesia was reviewed. - The risks and benefits of the procedure and the sedation options and risks were discussed with the patient. All questions were answered and informed consent was obtained. - Patient identification and proposed procedure were verified prior to the procedure by the physician, the nurse and the flight engineer instructor. The procedure was verified in the pre-procedure area in the procedure room. - Pre-procedure physical examination revealed no contraindications to sedation. - ASA Grade Assessment: III - A patient with severe systemic disease. - After reviewing the risks and benefits, the patient was deemed in satisfactory condition to undergo the procedure. - The anesthesia plan was to use general anesthesia. - Immediately prior to administration of medications, the patient was re- assessed for adequacy to receive sedatives. - The heart rate, respiratory rate, oxygen saturations, blood pressure, adequacy of pulmonary ventilation, and response to care were monitored throughout the procedure. - The physical status of the patient was re-assessed after the procedure. After obtaining informed consent, the endoscope was passed under direct vision. All instruments were visually inspected immediately before and after removal from the patient to ensure they are fully intact. Throughout the procedure, the patient's blood pressure, pulse, and oxygen saturations were monitored continuously. The GIF-H180 Endoscope ([id number]) was introduced through the mouth, and advanced to the third part of duodenum. The upper GI endoscopy was accomplished without difficulty. The patient tolerated the procedure well. Findings & Specimens: The examined esophagus was normal. The Z-line was regular and was found 40 cm from the incisors. Evidence of a gastric bypass was found. A gastric pouch with a 5 cm length from the GE junction to the gastrojejunal anastomosis was found. The staple line appeared intact. The gastrojejunal anastomosiswas characterized by healthy appearing mucosa. This was traversed. The ofgmb-gw-dtpfwxc limb was characterized by healthy appearing mucosa. The jgcufvbt-ar-nehuorh limb was not examined as it could not be reached. Biopsies were taken with a cold forceps for histology. The pathology specimen was placed into Bottle Number 1. Estimated blood loss was minimal. Impression: - Normal esophagus. - Z-line regular, 40 cm from the incisors. - Gastric bypass with a pouch 5 cm in length and intact staple line. Gastrojejunal anastomosis characterized by healthy appearing mucosa. Biopsied. Recommendation: - Await pathology results. - Perform an upper endoscopic ultrasound (UEUS) today. Keily Macdonald DO 07/02/2023 10:41:09 AM This report has been signed electronically. documented in this encounter Nursing Notes * Terrence Dominguez RN - 07/02/2023 11:23 AM EST Patient is alert, pain free and tolerating po fluids prior to discharge. Patient has been visited by Dr. Keily Macdonald. Patient has received and demonstrates understanding of discharge instructions. Patient ambulated to private auto accompanied by endo staff. * Terrence Dominguez RN - 07/02/2023 11:00 AM EST Patient transferred to post endo s/p EGD/EUS. Patient awake. Respirations are even and unlabored on room air. NSR in the 60s on the monitor. Abdomen soft and non distended. Vital signs stable. * Chris Sharp RN - 07/02/2023 10:49 AM EST Specimen(s) and location(s) verified with physician post procedure 10:49 AM Chris Sharp RN See anesthesia record for medication administered during procedure. Chris Sharp RN Pre cleaning of scope at the bedside started by technical service representative. * Janae Emmanuel RN - 07/02/2023 9:35 AM EST Pt prepped and ready for anesthesia to assess. Call abad in reach. documented in this encounter Plan of Treatment Upcoming Encounters Date Type Department Care Team (Late st Contact Info) Description 07/09/2023 1:40 PM EST Office Visit Family Medicine [address] [place] [phone] Agustín Sin MD [address] [place] [address] [place] [id number] 09/28/2023 3:20 PM EDT Office Visit Dermatology [address] [place] [phone] Marilu Mast PA-C [address] [place] [address] [place] [id number] 10/14/2023 3:00 PM EDT Office Visit Gastroenterology, [facility] [address] [place] [address] Tiarra Acosta CRNP [address] [place] [phone] 10/23/2023 3:00 PM EDT Office Visit Nephrology [address] [place] [address] Basilia Bernal MD [address] [facility] [place] [address] 12/15/2023 9:00 AM EDT Nurse Only Ancillary [address] [place] [address] [place], Nurse [address] [place] [address] Pending Results Name Type Priority Associated Diagnoses Date /Time SURGICAL PATHOLOGY Pathology Routine Abnormal MRI 07/02/2023 10:48 AM EST Scheduled Orders Name Type Priority Associated Diagnoses Orde r Schedule SURGICAL PATHOLOGY Pathology Routine Abnormal MRI Release Upon Ordering for 1 Occurrences starting 07/02/2023, 1 completed Scheduled Procedures Name Priority Associated Diagnoses Date/Ti me ESOPHAGOGASTRODUODENOSCOPY ( EGD), FLEXIBLE, TRANSORAL, ENDOSCOPIC ULTRASOUND Abnormal MRI 07/02/2023 10:31 AM EST COLONOSCOPY FLEXIBLE PROXIMA L DIAGNOSTIC [...] Additional history exists CKD PHOS USE SMARTSET 42818 03/05/202402/09, 05/07/2022, 09/30/2021, Additional history exists CKD HGB USE SMARTSET 83818 05/07/202405/07, 05/07/2023, 09/29/2022, Additional history exists DXA [...] Procedure Name Priority Date/Time Associated Diagnosis Comments UPPER ENDOSCOPIC U/S 07/02/2023 10:41 AM EST UPPER GI ENDOSCOPY 07/02/2023 10 :27 AM EST documented in this encounter Results * UPPER ENDOSCOPIC U/S (07/02/2023 10:41 AM EST) 07/02/2023 10:4 1 AM EST Narrative Procedure Note Agustín Sin MD - 07/02/2023 10:41 AM EST [facility] Patient Name: Allie Plasencia Procedure Date: 07/02/2023 10:41 AM Date of : 1945 Admit Type: Outpatient Note Status:Finalized Date of : 1945 Admit Type: Outpatient Age: 78 Room: Advanced Endo Gender: Female Note Status: Finalized Procedure: Upper EUS Indications: Common bile duct dilation (acquired) seen on MRI Providers: Keily Macdonald DO (Doctor) Referring MD: Agustín Sin (Referring MD), HAWA Travis (Referring MD) Medicines: General Anesthesia Complications: No immediate complications. Estimated blood loss:Minimal. Procedure: Pre-Anesthesia Assessment: - Prior to the procedure, a History and Physicalwas performed, and patient medications, allergies and sensitivities werereviewed. The patient's tolerance of previous anesthesia was reviewed. - The risks and benefits of the procedure and thesedation options and risks were discussed with the patient. All questions wereanswered and informed consent was obtained. - Patient identification and proposed procedurewere verified prior to the procedure by the physician, the nurse and the flight engineer instructor.The procedure was verified in the pre-procedure area in the procedure room. - Pre-procedure physical examination revealed nocontraindications to sedation. - ASA Grade Assessment: III - A patient with severesystemic disease. - After reviewing the risks and benefits, thepatient was deemed in satisfactory condition to undergo the procedure. - The anesthesia plan was to use generalanesthesia. - Immediately prior to administration ofmedications, the patient was re-assessed for adequacy to receive sedatives. - The heart rate, respiratory rate, oxygensaturations, blood pressure, adequacy of pulmonary ventilation, and response to care weremonitored throughout the procedure. - The physical status of the patient wasre-assessed after the procedure. After obtaining informed consent, the endoscope waspassed under direct vision. All instruments were visually inspected immediatelybefore and after removal from the patient to ensure they are fully intact. Throughout the procedure, the patient's bloodpressure, pulse, and oxygen saturations were monitored continuously. The GF-UE160 Endoscope([id number]) was introduced through the mouth, and advanced to the efferent jejunalloop. The upper EUS was accomplished without difficulty. The patient tolerated theprocedure well. Findings & Specimens: ENDOSONOGRAPHIC FINDING: : There was no sign of significant endosonographic abnormality in thepancreatic body, pancreatic tail and main pancreatic duct. The pancreatic duct measured up to 1 mm indiameter. No masses, no cysts. No lymphadenopathy seen. There was no sign of significant endosonographic abnormality in theleft lobe of the liver. Homogeneous parenchyma was identified. Impression: - There was no sign of significant pathology in thepancreatic body, pancreatic tail and main pancreatic duct. - There was no evidence of significant pathology inthe left lobe of the liver. Recommendation: - The patient will be observed post-procedure,until all discharge criteria are met. - Limited EUS due to prior Gastric Bypass - Consider a follow-up pancreatic CT in 3 months. Keily Macdonald DO 07/02/2023 10:53:32 AM This report has been signed electronically. Agustín Sin MD GASTRO UPPER * UPPER GI ENDOSCOPY (07/02/2023 10:27 AM EST) 07/02/2023 10:2 7 AM EST Narrative Procedure Note Agustín Sin MD - 07/02/2023 10:27 AM EST [facility] Patient Name: Allie Plasencia Procedure Date: 07/02/2023 10:27 AM Date of : 1945 Admit Type: Outpatient Note Status:Finalized Date of : 1945 Admit Type: Outpatient Age: 78 Room: Advanced [facility] Gender: Female Note Status: Finalized Procedure: Upper GI endoscopy Indications: Epigastric abdominal pain Providers: Keily Macdonald DO (Doctor) Referring MD: Agustín Sin (Referring MD), Tiarra Awad NP (Referring MD) Medicines: General Anesthesia Complications: No immediate complications. Estimated blood loss:Minimal. Procedure: Pre-Anesthesia Assessment: - Prior to the procedure, a History and Physicalwas performed, and patient medications, allergies and sensitivities werereviewed. The patient's tolerance of previous anesthesia was reviewed. - The risks and benefits of the procedure and thesedation options and risks were discussed with the patient. All questions wereanswered and informed consent was obtained. - Patient identification and proposed procedurewere verified prior to the procedure by the physician, the nurse and the flight engineer instructor.The procedure was verified in the pre-procedure area in the procedure room. - Pre-procedure physical examination revealed nocontraindications to sedation. - ASA Grade Assessment: III - A patient with severesystemic disease. - After reviewing the risks and benefits, thepatient was deemed in satisfactory condition to undergo the procedure. - The anesthesia plan was to use generalanesthesia. - Immediately prior to administration ofmedications, the patient was re-assessed for adequacy to receive sedatives. - The heart rate, respiratory rate, oxygensaturations, blood pressure, adequacy of pulmonary ventilation, and response to care weremonitored throughout the procedure. - The physical status of the patient wasre-assessed after the procedure. After obtaining informed consent, the endoscope waspassed under direct vision. All instruments were visually inspected immediatelybefore and after removal from the patient to ensure they are fully intact. Throughout the procedure, the patient's bloodpressure, pulse, and oxygen saturations were monitored continuously. The GIF-H180 Endoscope([id number]) was introduced through the mouth, and advanced to the third part ofduodenum. The upper GI endoscopy was accomplished without difficulty. The patienttolerated the procedure well. Findings & Specimens: The examined esophagus was normal. The Z-line was regular and was found 40 cm from the incisors. Evidence of a gastric bypass was found. A gastric pouch with a 5 cmlength from the GE junction to the gastrojejunal anastomosis was found. The staple line appeared intact.The gastrojejunal anastomosis was characterized by healthy appearing mucosa. This was traversed. Ohclbnqe-xd-qvkpldc limb was characterized by healthy appearing mucosa. The wgriyjuz-uq-xhyldtzwwco was not examined as it could not be reached. Biopsies were taken with a cold forceps forhistology. The pathology specimen was placed into Bottle Number 1. Estimated blood loss was minimal. Impression: - Normal esophagus. - Z-line regular, 40 cm from the incisors. - Gastric bypass with a pouch 5 cm in length andintact staple line. Gastrojejunal anastomosis characterized by healthy appearingmucosa. Biopsied. Recommendation: - Await pathology results. - Perform an upper endoscopic ultrasound (UEUS)today. Keily Macdonald DO 07/02/2023 10:41:09 AM This report has been signed electronically. Agustín Sin MD GASTRO UPPER documented in this encounter Visit Diagnoses Diagnosis Abnormal MRI Other nonspecific (abnormal) findings on radiological and other examinations of body structure documented in this encounter Administered Medications Inactive Administered Medications - up to 3 most recent administrations Medication Order MAR Action Action Date Dose Rate Site isolyte-S pH 7.4 infusion Intravenous, at 75 mL/hr, for Outpatient patient Plasma-LYTE 148, isolyte-S, and isolyte-S pH 7.4 are considered equivalent - including for MAR barcode scanning., CONTINUOUS, Starting on Elizabeth 07/02/23 at 0945, Until Elizabeth 07/02/23 at 1525, Pre-Op Continue from Pre-Op 07/02/2023 10:24 AM EST 75 mL/hr New Bag 07/02/2023 9:35 AM EST 75 mL/hr 75 mL/hr documented in this encounter Active and Recently Administered Medications Times are shown in EST. Continuous Medication Order 06/30/2023 07/01/2023 07/02/2023 isolyte-S pH 7.4 infusion Intravenous, at 75 mL/hr, for Outpatient patient Plasma-LYTE 148, isolyte-S, and isolyte-S pH 7.4 are considered equivalent - including for MAR barcode scanning., CONTINUOUS, Starting on Elizabeth 07/02/23 at 0945, Until Elizabeth 07/02/23 at 1525, Pre-Op 0935 (New Bag - Prov ider: Janae Emmanuel RN)1024 (Continue from Pre-Op - Provider: Nandini Mcmanus CRNA)1054 (Anes Intra-Op Fluid - Provider: Nandini Mcmanus CRNA) documented in this encounter Advance Directives Latest Code Status on File Code Status Date Activated Date Inactivated Comments Full Code 09/24/2007 3:51 PM 09/27/2007 3:27 PM Care Teams Junior Linux Administrator Relationship Specialty Start Date End Date Agustín Sin MD [address] [place] [address] [place] [address] PCP - General Family Medicine 05/06/21 documented as of this encounter
--- OUTSIDE RECORDS SUMMARY | 2023-10-18 09:07 | External Medical Summary ---
Author Name Unknown Address Unknown Organization K01:[facility] [place] [address] [place] [address] Laboratory Report Ordering Provider Test Date Status ALEJANDRO MARRERO 05/07/2023 13:51:58 Final Observation Date Value Abnormality Reference (Units ) Status Cancer Ag 19-9 05/07/2023 13:51:58 6.1 <35.0 (U/mL) Final Performing Location [facility] - [address] [place] [address]
--- OUTSIDE RECORDS SUMMARY | 2023-10-18 09:07 | External Medical Summary | Summary of Care ---
Author Name Unknown Organization [facility] Address [address] [facility] [place] [address] Phone [phone] Care Team Providers Care Manager School Name Role Phone Agustín Sin MD Primary Care Provide r Reason for Visit * Reason Onset Date Comments Pre Op Discussion 06/23/2023 Encounter Details Date Type Department Care Team (Late st Contact Info) Description 06/23/2023 Telephone OR [facility], Operating Room [facility] [address] [place] [phone] Keily Macdonald DO [address] [place] [address] Pre Op Discussion Allergies Active Allergy Reactions Criticality Noted Date Comments Lucas Inhibitors 08/14/2003 cough Bee Venom Anaphylaxis High 08/16/2013 Hydrochlorothiazide Medium 11/19/2005 Hypercalcemia And muscle cramps Nizatidine 12/03/2000 leg cramps documented as of this encounter (statuses as of 06/23/2023) Medications Medication Sig Dispensed Refills Start Date End Date Status MIRALAX PO POWDIndications:Cons tipation due to slow transit Dissolve one heaping tablespoon in 8 ounces of water or juice - one dose twice a day as needed for constipation- TAKES NEEDED 1 Bottle 0 06/07/2013 Active ONETOUCH ULTRA BLUE STRPIndications:Type 2 diabetes mellitus with hemoglobin A1c goal of less than 7.0% ([facility]) TEST 2 TO 3 TIMES DAILY [...] as of this encounter (statuses as of 06/23/2023) Active Problems Problem Noted Date Diagnosed Date [...] 3b chronic kidney disease 03/21/2008 EMERY RESEARCH OTHER*[id number] 08/31/2007 GENERAL OSTEOARTHROSIS documented as of this encounter (statuses as of 06/23/2023) Resolved Problems Problem Noted Date Diagnosed Date [...] BMI not known 09/09/2006 02/08/2008 LOC PRIM [id number] 06/01/200610/10 Venous insufficiency 11/19/2005 018 CERVICAL DISC DEGEN 07/23/2005 06/17/19 18 NEPHROPATHY -(NO MENTION ACU TE/MINERAL SURVEYOR DIABETIC (250.4=) 04/19/2005 06/17/2017 HYPERTENSIVE RENAL DISEASE [...] as of this encounter (statuses as of 06/23/2023) Immunizations Name Administration Dates Next Due COVID-19 [...] Care Team (Latest Contact Info) Description 07/02/2023 10:30 AM EST Hospital Encounter ENDO [facility], Endoscopy Room [facility] [address] [place] [phone] Keily Macdonald DO [address] [place] [address] 07/02/2023 10:30 AM EST - 07/02/2023 11:15 AM EST Surgery ENDO [facility], Endoscopy Room [facility] [address] [place] [phone] Keily Macdonald DO [address] [place] [address] ESOPHAGOGASTRODUODENOSCOPY (EGD), FLEXIBLE, TRANSORAL, ENDOSCOPIC ULTRASOUND 07/09/2023 1:40 PM EST Office Visit Family [facility] [address] [place] [phone] Agustín Sin MD [address] [place] [address] [place] [address] 09/28/2023 3:20 PM EDT Office Visit Dermatology [address] [place] [address] Marilu Mast PA-C [address] [place] [address] [place] [address] 10/14/2023 3:00 PM EDT Office Visit Gastroenterology , [facility] [address] [place] [address] Tiarra Acosta CRNP [address] [place] [address] 10/23/2023 3:00 PM EDT Office Visit Nephrology [address] [place] [address] Basilia Bernal MD [address] [facility] [place] [address] 12/15/2023 9:00 AM EDT Nurse Only Ancillary [address] [place] [address] [place], Nurse [address] [place] [address] Scheduled Procedures Name Priority Associated Diagnoses Date/Ti me ESOPHAGOGASTRODUODENOSCOPY ( EGD), FLEXIBLE, TRANSORAL, ENDOSCOPIC ULTRASOUND Abnormal MRI 07/02/2023 10:30 AM EST COLONOSCOPY FLEXIBLE PROXIMA L DIAGNOSTIC [...] Additional history exists CKD PHOS USE SMARTSET 84800 03/05/202402/09, 05/07/2022, 09/30/2021, Additional history exists CKD HGB USE SMARTSET 57388 05/07/202405/07, 05/07/2023, 09/29/2022, Additional history exists DXA [...] 3:51 PM 09/27/2007 3:27 PM Care Teams Manager School Relationship Specialty Start Date End Date Agustín Sin MD [address] [place] [address] [place] [address] PCP - General Family Medicine 05/06/21 documented as of this encounter
--- OUTSIDE RECORDS SUMMARY | 2023-10-18 09:07 | External Medical Summary ---
Author Name Unknown Address Unknown Organization K[facility] [address] [place] [address] Laboratory Report Ordering Provider Test Date Status ALEJANDRO MARRERO 05/07/2023 13:51:58 Final Observation Date Value Abnormality Reference (Units ) Status SYNC LEUKOCYTES IN BLOOD BY AUTOMATED COUNT 05/07/2023 13:51:58 4.86 4.00-10.80 (K/uL) Final Segs 05/07/2023 13:51:58 57.4 40.0-75.0 (%) Final Lymphs % 05/07/2023 13:51:58 30.7 18.0-42.0 (%) Final Monos 05/07/2023 13:51:58 10.9 1.0-11.0 (%) Final Eosinophils 05/07/2023 13:51:58 1.0 0.0-6.0 (%) Final Basos 05/07/2023 13:51:58 0.0 0.0-2.0 (%) Final Absolute Segs 05/07/2023 13:51:58 2.79 1.80-7.70 (K/uL) Final Lymphs, absolute 05/07/2023 13:51:58 1.49 1.00-4.80 (K/ul) Final Monos, Abs 05/07/2023 13:51:58 0.53 0.00-1.10 (K/uL) Final Eos, Abs 05/07/2023 13:51:58 0.05 0.00-0.70 (K/uL) Final Basos, Abs 05/07/2023 13:51:58 0.00 0.00-0.20 (K/uL) Final Performing Location [facility] [address] [place] [address]
--- OUTSIDE RECORDS SUMMARY | 2023-10-18 09:07 | External Medical Summary | Summary of Care ---
Author Name Unknown Organization [facility] Address [address] [facility] [place] [address] Phone [phone] Care Team Providers Care Lead Man Over All [employer] In [employer] Name Role Phone Agustín Sin MD Primary Care Provide r Reason for Visit * Reason Onset Date Comments Order Request 02/19/2023 Encounter Details Date Type Department Care Team (Late st Contact Info) Description 02/19/2023 Telephone Family Medicine [address] [place] [phone] Agustín Sin MD [address] [place] [address] [place] [address] Order Request Allergies Active Allergy Reactions Criticality Noted Date Comments Lucas Inhibitors 08/14/2003 cough Bee Venom Anaphylaxis High 08/16/2013 Hydrochlorothiazide Medium 11/19/2005 Hypercalcemia And muscle cramps Nizatidine 12/03/2000 leg cramps documented as of this encounter (statuses as of 05/21/2023) Medications Medication Sig Dispensed Refills Start Date End Date Status MIRALAX PO POWDIndications:Con stipation due to slow transit Dissolve one heaping tablespoon in 8 ounces of water or juice - one dose twice a day as needed for constipation- TAKES NEEDED 1 Bottle 0 06/07/2013 Active ONETOUCH ULTRA BLUE STRPIndications:Typ e 2 diabetes mellitus with hemoglobin A1c goal of less than 7.0% ([facility]) TEST 2 TO 3 TIMES DAILY [...] WEEK 26 Tablet 1 12/22/2022 4 Active famotidine (PEPCID AC) 10 MG TabletIndications:E sophageal dysphagia,Gastroeso phageal reflux disease with esophagitis Take 1 Tab by mouth 2 times a day. For heartburn 180 Tab 1 04/06/2019 3 Discontinu ed(Medicat ion List Clean Up) Losartan Potassium 100 MG Oral Tablet (Cozaar)Indications :HTN, goal below 140/90 TAKE ONE TABLET BY MOUTH EVERY MORNING 90 Tablet 1 09/29/2022 3 Discontinu ed(Refill) Levothyroxine Sodium 50 MCG Oral Tablet (Levoxyl)Indication s:Acquired hypothyroidism TAKE ONE AND ONE-HALF TABLETS BY MOUTH ON THURSDAY AND THURSDAY, THEN TAKE ONE TABLET ALL OTHER DAYS 110 Tablet 1 09/29/2022 3 Discontinu ed(Refill) documented as of this encounter (statuses as of 05/21/2023) Active Problems Problem Noted Date Diagnosed Date [...] 3b chronic kidney disease 03/21/2008 EMERY RESEARCH OTHER*[id number] 08/31/2007 GENERAL OSTEOARTHROSIS documented as of this encounter (statuses as of 05/21/2023) Resolved Problems Problem Noted Date Diagnosed Date [...] BMI not known 09/09/2006 02/08/2008 LOC PRIM [id number] 06/01/200610/10 Venous insufficiency 11/19/2005 018 CERVICAL DISC DEGEN 07/23/2005 06/17/19 18 NEPHROPATHY -(NO MENTION ACU TE/PROGRAM ARCHITECT DIABETIC (250.4=) 04/19/2005 06/17/2017 HYPERTENSIVE RENAL DISEASE [...] as of this encounter (statuses as of 05/21/2023) Immunizations Name Administration Dates Next Due COVID-19 mRNA, LNP-s, No Pre serve, 2-Dose Series (Pfizer) 03/20/2021,08/09/2020,07/05/2020 PPD 07/23/2005 Pneumococcal Conjugate Vacc, 13 Valent (Prevnar) 10/30/2014 Pneumococcal Polysaccharide PPV23 (Pneumovax) 03/07/2010 Season Influenza, Quad, PF, Adjuvanted, 65+ Yrs, IM (FLUAD) 01/03/2020 Seasonal Influenza, PF, 6 M & above, IM , (FluLaval or Fluzone) 01/31/2019,01/15/2018,01/30/2017 Seasonal Influenza, Quadriva lent, No Preserve, IM [...] encounter Miscellaneous Notes * Telephone Encounter - Lexii Mulligan OSA - 02/19/2023 9:48 AM EDT May we please have an order placed for a screening mammogram at your earliest convenience. Pt reports no issues. Thank you documented in this encounter Plan of Treatment Upcoming Encounters Date Type Department Care Team (Latest Contact Info) Description 07/02/2023 10:15 AM [facility] Hospital Encounter ENDO [facility], Endoscopy Room [facility] [address] [place] [phone] Keily Macdonald, [address] [place] [address] 07/02/2023 10:15 AM EST - 07/02/2023 11:00 AM EST Surgery ENDO [facility], Endoscopy Room [facility] [address] [place] [phone] Keily Macdonald DO [address] [place] [address] ESOPHAGOGASTRODUODENOSCOPY (EGD), FLEXIBLE, TRANSORAL, ENDOSCOPIC ULTRASOUND 07/09/2023 1:40 PM EST Office Visit Family Medicine [address] [place] [phone] Agustín Sin MD [address] [place] [address] [place] [address] 07/30/2023 12:00 PM EDT Office Visit Gastroenterology , [facility] [address] [place] [address] Tiarra Acosta CRNP [address] [place] [address] 09/28/2023 3:20 PM EDT Office Visit Dermatology [address] [place] [address] Marilu Mast PA-C [address] [place] [address] [place] [address] 12/15/2023 9:00 AM EDT Nurse Only Ancillary [address] [place] [address] [place], Nurse Annual Wellness [address] [place] [address] [place] [address] Scheduled Procedures Name Priority Associated Diagnoses Date/Ti [...] Additional history exists CKD PHOS USE SMARTSET 20248 03/05/202402/09, 05/07/2022, 09/30/2021, Additional history exists CKD HGB USE SMARTSET 21211 05/07/202405/07, 05/07/2023, 09/29/2022, Additional history exists DXA [...] filedocumented as of this encounter Results * MAMMOGRAM SCREENING ARELI BILATERAL (03/30/2023 12:33 PM EST) Anatomical Region Laterality Modality Breast Bilateral Mammography Narrative 04/01/2023 9:55 PM EST Result MAMMOGRAM SCREENING ARELI BILATERAL History Encounter for screening mammogram for breast cancer Family medical history includes breast cancer in granddaughter. Films Compared 03/24/2022 MAMMOGRAM SCREENING BILATERAL, 03/18/2021 MAMMOGRAM SCREENING BILATERAL, 12/19/2019 MAMMOGRAM SCREENING BILATERAL, 12/03/2017 MAMMOGRAM DIAGNOSTIC LEFT, and 11/06/2017 MAMMOGRAM SCREENING BILATERAL Findings There are scattered benign microcalcifications present. The breasts have scattered areas of fibroglandular density. No new dominant mass or clustered microcalcifications suspicious for malignancy are identified. Impression Bilateral No mammographic evidence of malignancy. BI-RADS Category: 2 - Benign. Recommendation Screening mammogram in 1 year is recommended for both breasts. Digital breast tomosynthesis was performed. This digital mammogram has been analyzed with the computer aided detection system. This notice contains the results of your recent mammogram, including information about breast density. If your mammogram shows that your breast tissue is dense, you should know that dense breast tissue is a common finding and is not abnormal. Statistics show many women could have dense or highly dense breasts. Dense breast tissue can make it harder to find cancer on a mammogram and may be associated with an increased risk of cancer. This information about the result of your mammogram is given to you to raise your awareness and to inform your conversations with your physician. Together, you can decide which screening options are right for you, based on your mammogram results, individual risk factors or physical examination. A report of your results was sent to your physician. Your mammographic breast density on today's study is described above. There are four categories of breast density on mammography. Fatty breasts and those with scattered fibroglandular tissue are not considered dense. Heterogeneously dense or extremely dense tissue is considered "dense". Please understand that assessment of breast density may vary from year to year. This examination was performed at [facility] [place] [address]. Darron Brady MD RAD MAMMOGRAPHY documented in this encounter Visit Diagnoses Diagnosis Encounter for screening mammogram for breast cancer- Primary Encounter for screening mammogram for breast cancer Abnormal MRI Other nonspecific (abnormal) findings on radiological and other examinations of body structure documented in this encounter Advance Directives Latest Code Status on File Code Status Date Activated Date Inactivated Comments Full Code 09/24/2007 3:51 PM 09/27/2007 3:27 PM Care Teams Lead Man Over All Dies In [employer] Relationship Specialty Start Date End Date Agustín Sin MD [address] [place] [address] [place] [id number] PCP - General Family Medicine 05/06/21 documented as of this encounter
--- OUTSIDE RECORDS SUMMARY | 2023-10-18 09:07 | External Medical Summary ---
Author Name Unknown Address Unknown Organization K0G:[facility] - [address] [place] [address] Laboratory Report Ordering Provider Test Date Status ALEJANDRO MARRERO 05/07/2023 13:51:58 Final Warfarin Therapy
INR: 2 .0-3.0 conventional anticoagulation
INR: 2.5- 3.5 high intensity anticoagulation Observation Date Value Abnormality Reference (Units ) Status PT 05/07/2023 13:51:58 13.0 11.6-15.2 (seconds) Final INR 05/07/2023 13:51:58 1.0 0.8-1.2 Final Performing Location [facility] 0 - [address] [place] [address]
--- OUTSIDE RECORDS SUMMARY | 2023-10-18 09:08 | External Medical Summary | Summary of Care ---
Author Name Unknown Organization [facility] Address [address] [facility] [place] [address] Phone [phone] Care Team Providers Care Bacteriology Technician Name Role Phone Agustín Sin MD Primary Care Provide r Reason for Referral * Evaluate & Treat - Unlimited Visits (Within 10 days (routine)) - Authorized Specialty Diagnoses / Procedures Referred By Som miller Referred To Contact Gastroenterology Diagnoses RUQ pain Abnormal MRI of abdomen Agustín Sin MD [address] [place] [address] [place] [address] Referral ID Status Reason Start Date Expiration Date Visits Requested Visits Authorized [id number] Authorized Specialty Services Required 3 999 999 Question Answer Referral Priority Within 10 days (routine) Where should this appointment be scheduled? [facility] For what condition is the patient being referred? All Gastro Conditions Comments Abnormal MRI abd pain Reason for Visit * Reason Onset Date Comments Test Results 04/27/2023 Encounter Details Date Type Department Care Team (Late st Contact Info) Description 04/27/[address] [facility] [address] [place] [address] [place] [phone] Agustín Sin MD [address] [place] [address] [place] [address] Test Results Allergies Active Allergy Reactions Criticality Noted Date Comments Lucas Inhibitors 08/14/2003 cough Bee Venom Anaphylaxis High 08/16/2013 Hydrochlorothiazide Medium 11/19/2005 Hypercalcemia And muscle cramps Nizatidine 12/03/2000 leg cramps documented as of this encounter (statuses as of 04/27/2023) Medications Medication Sig Dispensed Refills Start Date End Date Status MIRALAX PO POWDIndications:Cons tipation due to slow transit Dissolve one heaping tablespoon in 8 ounces of water or juice - one dose twice a day as needed for constipation- TAKES NEEDED 1 Bottle 0 06/07/2013 Active ONETOUCH ULTRA BLUE STRPIndications:Type 2 diabetes mellitus with hemoglobin A1c goal of less than 7.0% ([facility]) TEST 2 TO 3 TIMES DAILY 300 Strip 1 10/31/2016 Active MV-Min-Fe Fum-FA-DHA ( 1) 30-0.975-200 MG [...] TWICE A WEEK 26 Tablet 1 12/22/2022 12/22/2023 Active Losartan Potassium 100 MG Oral Tablet (Cozaar)Indications: HTN, goal below 140/90 TAKE ONE TABLET BY MOUTH EVERY MORNING 100 Tablet 3 03/18/2023 03/17/2024 Active Levothyroxine Sodium 50 MCG Oral Tablet (Levoxyl)Indications :Acquired hypothyroidism TAKE ONE AND ONE-HALF TABLETS BY MOUTH ON THURSDAY AND THURSDAY, THEN TAKE ONE TABLET ALL OTHER DAYS 110 Tablet 1 03/22/2023 03/21/2024 Active documented as of this encounter (statuses as of 04/27/2023) Active Problems Problem Noted Date Diagnosed Date [...] 3b chronic kidney disease 03/21/2008 EMERY RESEARCH OTHER*[id number] 08/31/2007 GENERAL OSTEOARTHROSIS documented as of this encounter (statuses as of 04/27/2023) Resolved Problems Problem Noted Date Diagnosed Date [...] BMI not known 09/09/2006 02/08/2008 LOC PRIM [id number] 06/01/200610/10 Venous insufficiency 11/19/2005 018 CERVICAL DISC DEGEN 07/23/2005 06/17/19 18 NEPHROPATHY -(NO MENTION ACU 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 CLERK 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 (250.4=) 04/19/2005 06/17/2017 HYPERTENSIVE RENAL DISEASE [...] as of this encounter (statuses as of 04/27/2023) Immunizations Name Administration Dates Next Due COVID-19 mRNA, LNP-s, No Pre serve, 2-Dose Series ([employer]) 03/20/2021,08/09/2020,07/05/2020 PPD 07/23/2005 Pneumococcal Conjugate Vacc, 13 [...] as of this encounter Miscellaneous Notes * Addendum Note - Agustín Sin MD - 04/27/2023 6:52 PM ESTAddended by: AGUSTÍN SIN on: 04/27/2023 06:52 PM Modules accepted: Orders * Telephone Encounter - Agustín Sin MD - 04/27/2023 6:48 PM EST Spoke to the pt and discussed the MRI abd result - pt still gets intermittent abd pain with certain fatty food Plan: - will get GI consultation prior to potential ERCP - er precautions given * Telephone Encounter - Bree Saini RN - 04/27/2023 3:22 PM EST Please review MRI and advise * Telephone Encounter - Lizzy Morgan OSA - 04/27/2023 9:16 AM EST Allie called in on my phone, she would [facility] a call [facility] with her test results. [phone] documented in this encounter Plan of Treatment Upcoming Encounters Date Type Department Care Team (Late st Contact Info) Description 07/09/2023 1:40 PM EST Office Visit Family Medicine [address] [place] [phone] Agustín Sin MD [address] [place] [address] [place] [address] 09/28/2023 3:20 PM EDT Office Visit Dermatology [address] [place] [address] Marilu Mast PA-C [address] [place] [address] [place] [address] 12/15/2023 9:00 AM EDT Nurse Only Ancillary [address] [place] [address] Jerod, Nurse Annual Wellness [address] [place] [address] [place] [address] Scheduled Procedures Name Priority Associated Diagnoses Date/Ti me COLONOSCOPY FLEXIBLE PROXIMA L DIAGNOSTIC Recall History of colon polyps Family history of colon cancer Scheduled Referrals Name Type Priority Associated Diagnoses Order Schedule ADULT GASTROENTEROLOGY REFERRAL OP Referral Within 10 days (routine) RUQ pain Abnormal MRI of abdomen Ordered: 04/27/2023 Health Maintenance Due Date Last Done Comments COVID-19 Vaccine ( season) 2023 03/20/2021, 08/09/2020, 07/05/2020 GFR 09/04/2023 03/05/2023, 09/09, 05/07/2022, Additional history exists CKD HGB USE SMARTSET 22947 09/30/202309/29, 09/29/2022, 05/07/2022, Additional history exists TSH 09/30/2023 09/29/2022, 06/12, 05/07/2022, Additional history exists Depression Screening 12/12/2023 12/11/2022 Albumin/Creatinine Ratio 01/01/2024 023, 05/07/2022, 09/30/2021, Additional history exists CKD PHOS USE SMARTSET 91939 03/05/202402/09, 05/07/2022, 09/30/2021, Additional history exists DXA [...] as of this encounter Visit Diagnoses Diagnosis RUQ pain- Primary Abdominal pain, right upper quadrant Abnormal MRI of abdomen Nonspecific (abnormal) findings on radiological and other examination of abdominal area, including retroperitoneum documented in this encounter Advance Directives Latest Code Status on File Code Status Date Activated Date Inactivated Comments Full Code 09/24/2007 3:51 PM 09/27/2007 3:27 PM Care Teams Bacteriology Technician Relationship Specialty Start Date End Date Agustín Sin MD [address] [place] [address] [place] [address] PCP - General Family Medicine 05/06/21 documented as of this encounter
--- OUTSIDE RECORDS SUMMARY | 2023-10-18 09:08 | External Medical Summary | Summary of Care ---
Author Name Unknown Organization [facility] Address [address] [facility] [place] [address] Phone [phone] Care Team Providers Care Gas Meter Mechanic Name Role Phone Agustín Sin MD Primary Care Provide r Reason for Visit * Reason Onset Date Comments Test Results 04/27/2023 Encounter Details Date Type Department Care Team (Late st Contact Info) Description 04/27/2023 Telephone Family Medicine [address] [place] [phone] Agustín Sin MD [address] [place] [address] [place] [address] Test Results Allergies Active [...] hemoglobin A1c goal of less than 7.0% ([facility]) TEST 2 TO 3 TIMES DAILY 300 [...] 3b chronic kidney disease 03/21/2008 EMERY RESEARCH OTHER*[id number] 08/31/2007 GENERAL OSTEOARTHROSIS documented as of this [...] BMI not known 09/09/2006 02/08/2008 LOC PRIM [id number] 06/01/200610/10 Venous insufficiency 11/19/2005 018 CERVICAL DISC DEGEN 07/23/2005 06/17/19 18 NEPHROPATHY -(NO MENTION ACU TE/HEALTH SUPPORT SPECIALIST DIABETIC (250.4=) 04/19/2005 06/17/2017 HYPERTENSIVE RENAL [...] encounter Miscellaneous Notes * Telephone Encounter - Lizzy Morgan OSA - 04/27/2023 9:16 AM EST Allie called in on my phone, she would like a call from [facility] with her test results. [phone] documented in this encounter Plan of Treatment Upcoming Encounters Date Type Department Care Team (Late st Contact Info) Description 07/09/2023 1:40 PM EST Office Visit Family Medicine [address] [place] [phone] Agustín Sin MD [address] [place] [address] [place] [address] 09/28/2023 3:20 PM EDT Office Visit Dermatology [address] [place] [address] Marilu Mast PA-C [address] [place] [address] [place] [address] 12/15/2023 9:00 AM EDT Nurse Only Ancillary [address] [place] [address] Jerod, Nurse Annual Wellness [address] [place] [address] [place] [address] Scheduled Procedures Name Priority Associated Diagnoses Date/Ti me COLONOSCOPY FLEXIBLE PROXIMA L DIAGNOSTIC Recall History of colon polyps Family history of colon cancer Health Maintenance Due Date Last Done Comments COVID-19 Vaccine ( season) 2023 03/20/2021, 08/09/2020, 07/05/2020 GFR 09/04/2023 03/05/2023, 09/09, 05/07/2022, Additional history exists CKD HGB USE SMARTSET 82017 09/30/202309/29, 09/29/2022, 05/07/2022, Additional history exists TSH 09/30/2023 09/29/2022, 06/12, 05/07/2022, Additional history exists Depression Screening 12/12/2023 12/11/2022 Albumin/Creatinine Ratio 01/01/2024 023, 05/07/2022, 09/30/2021, Additional history exists CKD PHOS USE SMARTSET 24337 03/05/202402/09, 05/07/2022, 09/30/2021, Additional history exists DXA [...] 3:51 PM 09/27/2007 3:27 PM Care Teams Gas Meter Mechanic Relationship Specialty Start Date End Date Agustín Sin MD [address] [place] [address] [place] [address] PCP - General Family Medicine 05/06/21 documented as of this encounter
--- OUTSIDE RECORDS SUMMARY | 2023-10-18 09:08 | External Medical Summary | Summary of Care ---
Author Name Unknown Organization [facility] Address [address] [facility] [place] [address] Phone [phone] Care Team Providers Care Motor Electrician Name Role Phone Agustín Sin MD Primary Care Provide r Reason for Visit * Reason Onset Date Comments Test Results 04/27/2023 Encounter Details Date Type Department Care Team (Late st Contact Info) Description 04/27/2023 Telephone Family Medicine [address] [place] [phone] Agustín Sin MD [address] [place] [address] [place] [address] Test Results Allergies Active [...] 3b chronic kidney disease 03/21/2008 EMERY RESEARCH OTHER*[id number] 08/31/2007 GENERAL OSTEOARTHROSIS documented as of this [...] BMI not known 09/09/2006 02/08/2008 LOC PRIM [id number] 06/01/200610/10 Venous insufficiency 11/19/2005 018 CERVICAL DISC DEGEN 07/23/2005 06/17/19 18 NEPHROPATHY -(NO MENTION ACU TE/CAT SCAN TECHNOLOGIST DIABETIC (250.4=) 04/19/2005 06/17/2017 HYPERTENSIVE RENAL DISEASE [...] phone, she would like a call from [facility] with her test results. [phone] documented in this encounter Plan of Treatment Upcoming Encounters Date Type Department Care Team (Late st Contact Info) Description 07/09/2023 1:40 PM EST Office Visit Family Medicine [address] [place] [phone] Agustín Sin MD [address] [place] [address] [place] [address] 09/28/2023 3:20 PM EDT Office Visit Dermatology [address] [place] [address] Marilu Mast PA-C [address] [place] [address] [place] [address] 12/15/2023 9:00 AM EDT Nurse Only Ancillary [address] [place] [address] Jerod, Nurse Annual Wellness [address] [place] [address] [place] [address] Scheduled Procedures Name Priority Associated Diagnoses Date/Ti me COLONOSCOPY FLEXIBLE PROXIMA L DIAGNOSTIC Recall History of colon polyps Family history of colon cancer Health Maintenance Due Date Last Done Comments COVID-19 Vaccine ( season) 2023 03/20/2021, 08/09/2020, 07/05/2020 GFR 09/04/2023 03/05/2023, 09/09, 05/07/2022, Additional history exists CKD HGB USE SMARTSET 19982 09/30/202309/29, 09/29/2022, 05/07/2022, Additional history exists TSH 09/30/2023 09/29/2022, 06/12, 05/07/2022, Additional history exists Depression Screening 12/12/2023 12/11/2022 Albumin/Creatinine Ratio 01/01/2024 023, 05/07/2022, 09/30/2021, Additional history exists CKD PHOS USE SMARTSET 89500 03/05/202402/09, 05/07/2022, 09/30/2021, Additional history exists DXA [...] 3:51 PM 09/27/2007 3:27 PM Care Teams Motor Electrician Relationship Specialty Start Date End Date Agustín Sin MD [address] [place] [address] [place] [address] PCP - General Family Medicine 05/06/21 documented as of this encounter
--- OUTSIDE RECORDS SUMMARY | 2023-10-18 09:08 | External Medical Summary | Summary of Care ---
Author Name Unknown Organization [facility] Address [address] [facility] [place] [address] Phone [phone] Care Team Providers Care Precision Grinder External Name Role Phone Agustín Sin MD Primary Care Provide r Reason for Visit * Reason Onset Date Comments Test Results 04/27/2023 Encounter Details Date Type Department Care Team (Late st Contact Info) Description 04/27/2023 Telephone Family Medicine [address] [place] [phone] Agustín Sin MD [address] [place] [address] [place] [address] Test Results Allergies Active [...] goal of less than 7.0% ([facility]) TEST 2 TO 3 TIMES DAILY 300 [...] 3b chronic kidney disease 03/21/2008 EMERY RESEARCH OTHER*[id number] 08/31/2007 GENERAL OSTEOARTHROSIS documented as of this [...] BMI not known 09/09/2006 02/08/2008 LOC PRIM [id number] 06/01/200610/10 Venous insufficiency 11/19/2005 018 CERVICAL DISC DEGEN 07/23/2005 06/17/19 18 NEPHROPATHY -(NO MENTION ACU TE/SOFTWARE TEST ENGINEER DIABETIC (250.4=) 04/19/2005 06/17/2017 HYPERTENSIVE RENAL [...] encounter Miscellaneous Notes * Telephone Encounter - Bree Saini RN - 04/27/2023 3:22 PM EST Please review MRI and advise * Telephone Encounter - Lizzy Morgan OSA - 04/27/2023 9:16 AM EST Allie called in on my phone, she would like a call from [facility] with her test results. [phone] documented in this encounter Plan of Treatment Upcoming Encounters Date Type Department Care Team (Late st Contact Info) Description 07/09/2023 1:40 PM EST Office Visit Family Medicine [address] [place] [phone] Agustín Sin MD [address] [place] [address] [place] [address] 09/28/2023 3:20 PM EDT Office Visit Dermatology [address] [place] [address] Marilu Mast PA-C [address] [place] [address] [place] [address] 12/15/2023 9:00 AM EDT Nurse Only Ancillary Wallace Adhikari[address] [place] [address] Movalldelmy, Nurse [address] [place] [address] Scheduled Procedures Name Priority Associated Diagnoses Date/Ti me COLONOSCOPY FLEXIBLE PROXIMA L DIAGNOSTIC Recall History of colon polyps Family history of colon cancer Health Maintenance Due Date Last Done Comments COVID-19 Vaccine ( season) 2023 03/20/2021, 08/09/2020, 07/05/2020 GFR 09/04/2023 03/05/2023, 09/09, 05/07/2022, Additional history exists CKD HGB USE SMARTSET 66124 09/30/202309/29, 09/29/2022, 05/07/2022, Additional history exists TSH 09/30/2023 09/29/2022, 06/12, 05/07/2022, Additional history exists Depression Screening 12/12/2023 12/11/2022 Albumin/Creatinine Ratio 01/01/2024 023, 05/07/2022, 09/30/2021, Additional history exists CKD PHOS USE SMARTSET 35120 03/05/202402/09, 05/07/2022, 09/30/2021, Additional history exists DXA [...] 3:51 PM 09/27/2007 3:27 PM Care Teams Precision Grinder External Relationship Specialty Start Date End Date Agustín Sin MD [address] [place] [address] [place] [phone] PCP - General Family Medicine 05/06/21 documented as of this encounter
--- OUTSIDE RECORDS SUMMARY | 2023-10-18 09:08 | External Medical Summary | Summary of Care ---
Author Name Unknown Organization [facility] Address [address] [facility] [place] [address] Phone [phone] Care Team Providers Care Senior Loan Processor Name Role Phone Agustín Chairez MD Primary Care Provide r Reason for Referral * Evaluate & Treat - Unlimited Visits (Within 10 days (routine)) - Authorized Specialty Diagnoses / Procedures Referred By Som miller Referred To Contact Gastroenterology Diagnoses RUQ pain Abnormal MRI of abdomen Agustín Chairez MD [address] [place] [address] [place] [address] Referral ID Status Reason Start Date Expiration Date Visits Requested Visits Authorized [id number] Authorized Specialty Services Required 3 999 999 [...] Contact Info) Description 04/27/2023 [facility] [address] [place] [address] [place] [phone] Agustín Chairez MD [address] [place] [address] [place] [address] Test Results Allergies Active Allergy Reactions Criticality Noted Date Comments Lucas Inhibitors 08/14/2003 cough Bee Venom Anaphylaxis High 08/16/2013 Hydrochlorothiazide Medium 11/19/2005 Hypercalcemia And muscle cramps Nizatidine 12/03/2000 leg cramps documented as of this encounter (statuses as of 04/28/2023) Medications Medication Sig Dispensed Refills Start Date [...] as of this encounter (statuses as of 04/28/2023) Active Problems Problem Noted Date Diagnosed Date [...] 3b chronic kidney disease 03/21/2008 EMERY RESEARCH OTHER*[id number] 08/31/2007 GENERAL OSTEOARTHROSIS documented as of this encounter (statuses as of 04/28/2023) Resolved Problems Problem Noted Date Diagnosed Date [...] BMI not known 09/09/2006 02/08/2008 LOC PRIM [id number] 06/01/200610/10 Venous insufficiency 11/19/2005 018 CERVICAL DISC DEGEN 07/23/2005 06/17/19 18 NEPHROPATHY -(NO MENTION ACU TE/MACHINE ASSEMBLER FOR PULLER OVER DIABETIC (250.4=) 04/19/2005 06/17/2017 HYPERTENSIVE RENAL DISEASE [...] as of this encounter (statuses as of 04/28/2023) Immunizations Name Administration Dates Next Due COVID-19 mRNA, LNP-s, No Pre serve, 2-Dose Series ([employer]) 03/20/2021,08/09/2020,07/05/2020 PPD 07/23/2005 Pneumococcal Conjugate Vacc, [...] Telephone Encounter - Lizzy Morgan OSA - 04/28/2023 8:14 AM EST GI appt scheduled, pt aware. * Addendum Note - Agustín Chairez MD - 04/27/2023 6:52 PM ESTAddended by: AGUSTÍN CHAIREZ on: 04/27/2023 06:52 PM Modules accepted: Orders * Telephone Encounter - Agustín Chairez MD - 04/27/2023 6:48 PM EST Spoke [...] phone, she would like a call from [facility] with her test results. [phone] documented in this encounter Plan of Treatment Upcoming Encounters Date Type Department Care Team (Late st Contact Info) Description 05/07/2023 1:00 PM EST Office Visit Gastroenterology, [facility] [address] [facility] [place] [address] Tiarra Acosta CRNP 132 [facility] [place] [address] 07/09/2023 1:40 PM EST Office Visit Family Medicine [address] [place] [phone] Agustín Chairez MD [address] [place] [address] [place] [address] 09/28/2023 3:20 PM EDT Office Visit Dermatology [address] [place] [address] Marilu Mast PA-C [address] [place] [address] [place] [address] 12/15/2023 9:00 AM EDT Nurse Only Ancillary Wallace Adhikari[address] [place] [address] Jerod Nurse [address] [place] [address] Scheduled Procedures Name Priority Associated Diagnoses Date/Ti [...] Additional history exists CKD HGB USE SMARTSET 31951 09/30/202309/29, 09/29/2022, 05/07/2022, Additional history exists TSH 09/30/2023 09/29/2022, 06/12, 05/07/2022, Additional history exists Depression Screening 12/12/2023 12/11/2022 Albumin/Creatinine Ratio 01/01/2024 023, 05/07/2022, 09/30/2021, Additional history exists CKD PHOS USE SMARTSET 24031 03/05/202402/09, 05/07/2022, 09/30/2021, Additional history exists DXA [...] 3:51 PM 09/27/2007 3:27 PM Care Teams Senior Loan Processor Relationship Specialty Start Date End Date Agustín Chairez MD [address] [place] [address] [place] [address] PCP - General Family Medicine 05/06/21 documented as of this encounter
--- OUTSIDE RECORDS SUMMARY | 2023-10-18 09:08 | External Medical Summary | Summary of Care ---
Author Name Unknown Organization [facility] Address 100 [facility] [place] [address] Phone [phone] Care Team Providers Care Edge Cutting Machine Operator Name Role Phone Agustín Sin MD Primary Care Provide r Reason for Visit * Reason Onset Date Comments Advice 05/02/2023 Encounter Details Date Type Department Care Team (Late st Contact Info) Description 05/02/2023 Telephone Family Medicine [address] [place] [phone] Agustín Sin MD [address] [place] [address] [place] [address] Advice Allergies Active Allergy Reactions Criticality Noted Date Comments Lucas Inhibitors 08/14/2003 cough Bee Venom Anaphylaxis High 08/16/2013 Hydrochlorothiazide Medium 11/19/2005 Hypercalcemia And muscle cramps Nizatidine 12/03/2000 leg cramps documented as of this encounter (statuses as of 05/05/2023) Medications Medication Sig Dispensed Refills Start Date [...] as of this encounter (statuses as of 05/05/2023) Active Problems Problem Noted Date Diagnosed Date [...] 3b chronic kidney disease 03/21/2008 EMERY RESEARCH OTHER*[id number] 08/31/2007 GENERAL OSTEOARTHROSIS documented as of this encounter (statuses as of 05/05/2023) Resolved Problems Problem Noted Date Diagnosed Date [...] BMI not known 09/09/2006 02/08/2008 LOC PRIM [id number] 06/01/200610/10 Venous insufficiency 11/19/2005 018 CERVICAL DISC DEGEN 07/23/2005 06/17/19 18 NEPHROPATHY -(NO MENTION ACU TE/TRIAGE CLINICIAN DIABETIC (250.4=) 04/19/2005 06/17/2017 HYPERTENSIVE RENAL DISEASE [...] as of this encounter (statuses as of 05/05/2023) Immunizations Name Administration Dates Next Due COVID-19 [...] Telephone Encounter - Lisseth Bal CMA - 05/05/2023 12:03 PM EST I called her and left a message. I just told her it was a courtesy call letting her know that therewas no phone call made from here that I was aware of but if she needed us she could reach the office via [phone]. * Telephone Encounter - Leoncio Banerjee OSA - 05/02/2023 2:14 PM EST Patient received a call, there was no VM or Tel encounter on file. Please give patient a call back if needed. Thank you documented in this encounter Plan of Treatment Upcoming Encounters Date Type Department Care Team (Late st Contact Info) Description 05/07/2023 1:00 PM EST Office Visit Gastroenterology, [facility] [address] [place] [address] Tiarra Acosta CRNP 132 [place] [address] 07/09/2023 1:40 PM EST Office Visit Family [address] [phone] Agustín Sin MD [address] [place] [address] [place] [address] 09/28/2023 3:20 PM EDT Office Visit Dermatology [address] [place] [address] Marilu Mast, SEAN [address] [place] [address] [place] [address] 12/15/2023 9:00 AM EDT Nurse Only Ancillary [address] [place] [address] Jerod, Nurse Annual Wellness [address] [place] [address] [place] [address] Scheduled Procedures Name Priority Associated Diagnoses Date/Ti me COLONOSCOPY FLEXIBLE PROXIMA L DIAGNOSTIC Recall History of colon polyps Family history of colon cancer Health Maintenance Due Date Last Done Comments COVID-19 Vaccine ( season) 2023 03/20/2021, 08/09/2020, 07/05/2020 GFR 09/04/2023 03/05/2023, 09/09, 05/07/2022, Additional history exists CKD HGB USE SMARTSET 75238 09/30/202309/29, 09/29/2022, 05/07/2022, Additional history exists TSH 09/30/2023 09/29/2022, 06/12, 05/07/2022, Additional history exists Depression Screening 12/12/2023 12/11/2022 Albumin/Creatinine Ratio 01/01/2024 023, 05/07/2022, 09/30/2021, Additional history exists CKD PHOS USE SMARTSET 50183 03/05/202402/09, 05/07/2022, 09/30/2021, Additional history exists DXA [...] 3:51 PM 09/27/2007 3:27 PM Care Teams Edge Cutting Machine Operator Relationship Specialty Start Date End Date Agustín Sin MD [address] [place] [address] [place] [phone] PCP - General Family Medicine 05/06/21 documented as of this encounter
--- NOTE | 2023-10-18 09:29 | Emergency Department Note ---
History of Present Illness General Chief complaint: TIA Symptoms Stated complaint: FACIAL DROOP, ARM NUMBNESS, TROUBLE TALKING Time Seen by Provider: 10/18/23 09:15 Source: patient, family ( who is at the bed), RN notes reviewed and old records reviewed (07/27/20-outpatient family practice note for knee pain) Mode of arrival: ambulatory Limitations: no limitations History of Present Illness This patient is an 78-year-old female who comes in after having a left-sided facial droop and dexterity problems in her left arm. She woke up at 630 this morning like this. Her last known well was around 9:00 last night when she went to bed. She is on no blood thinners. Denies headache. Denies weakness in the legs. No change in vision. no headache. no chest pain or shortness of breath. No fall or trauma. no recent surgery. No history of stroke. Home Medications Medication Instructions Recorded Confirmed Type atorvastatin 10 mg tablet (Lipitor) 10 mg PO MONTHUR 07/06/18 10/18/23 History calcium carbonate (Calcium 600) 600 mg PO QAM 07/06/18 10/18/23 History cyanocobalamin (vitamin B-12) 500 2,500 mcg PO QAM 07/06/18 10/18/23 History mcg tablet (Vitamin B-12) levothyroxine 50 mcg tablet 50 mcg PO QAM 07/06/18 10/18/23 History (Synthroid) losartan 100 mg tablet (Cozaar) 100 mg PO QAM 07/06/18 10/18/23 History vit no.95-ferrous 1 tab PO DAILY 07/06/18 10/18/23 History fumarate 28 mg-folic acid 800 mcg tablet () polyethylene glycol 3350 17 gram 17 g PO DAILY PRN Constipation 08/17/18 10/18/23 History oral powder packet (Miralax) diclofenac sodium 1 % topical gel 1 ea topical UD 10/18/23 10/18/23 History famotidine 40 mg tablet 40 mg PO DAILY 10/18/23 10/18/23 History magnesium 250 mg tablet 250 mg PO DAILY PRN Other 10/18/23 10/18/23 History Allergies Allergy/AdvReac Type Severity Reaction Status Date / Time bee venom protein (honey bee) Allergy Severe Anaphylaxis Verified 08/18/18 08:00 Past Med/Surg History Problem List (Updated 10/18/23 @ 16:33 by Omer Lowry MD) Acute right MCA stroke Impaired coordination of upper extremity (Acute) Facial weakness (Acute) Stroke (Acute) Weakness (Acute) Encounter for pre-operative examination Chest pain (Acute) Complete left bundle branch block (LBBB) determined by ECG (Acute) Elevated lipase S/P gastric bypass GERD (gastroesophageal reflux disease) Solitary kidney, acquired (Chronic) Surgically absent after childhood trauma when she fell off a swing CKD (chronic kidney disease), stage III (Chronic) Intestinal postoperative nonabsorption (Chronic) Dyslipidemia (Chronic) Acquired hypothyroidism (Chronic) Medical History (Updated 10/18/23 @ 16:33 by Omer Lwory MD) GERD (gastroesophageal reflux disease) Migraine HX Essential hypertension Constipation by delayed colonic transit Generalized osteoarthrosis History of diabetes mellitus resolved following bariatric surgery Surgical History History of colonoscopy History of tooth extraction History of thyroid surgery removal of benign nodule 1983 History of appendectomy History of nephrectomy, unilateral left History of total abdominal hysterectomy History of arthroplasty of right shoulder x2 - 2004, 2003 History of gastric bypass Family History Brother Family history of diabetes mellitus Family hx of colon cancer Social History Smoking Status: Never smoker Second Hand Exposure: No; Do You Dip or Chew Tobacco: No; Tobacco Cessation Education Requested by Patient: No Hx Alcohol Use: Yes Alcohol type: wine Alcohol Intake Frequency Comment: 1-2 glasses of wine 1-2 days per week Hx Substance Use: No Preferred Language: Citizen Of [place] Communication Ability: Effective Cost Analyst Required: No Beliefs That Will Affect Care: None Current Living Situation: Alone and Spouse Other Information That Helps Us Care for You: No Feels Safe at Home: Yes Safety Concerns: Feels Safe At This Time Assistive Devices: Denture - Upper and Denture - Lower Review of Systems A total of 10 systems reviewed and were otherwise negative Physical Exam Vital Signs Vital Signs - 24 hr 10/18/23 09:06 10/18/23 09:42 10/18/23 09:54 Temperature 36.6 C Temperature Source Temporal Artery Scan Pulse Rate 72 76 82 Pulse Rate [Finger] Pulse Rate from SpO2 Sensor Pulse Rhythm [Finger] Pulse Strength [Finger] Respiratory Rate 16 19 24 Respiratory Effort / Characteristics Non-Labored Respiratory Depth Normal Respiratory Pattern Blood Pressure 187/75 H Blood Pressure [Right Arm] Blood Pressure Mean 112 Blood Pressure Mean [Right Arm] Blood Pressure Position [Right Arm] Pulse Oximetry Oxygen Delivery Method Sepsis Recent Fever Within 48 Hours No Sepsis New/Unexplained Change in Mental Status No Sepsis Action Taken by Nursing No Action Required 10/18/23 10:08 10/18/23 10:10/18/23 10:21 Temperature Temperature Source Pulse Rate 76 74 Pulse Rate [Finger] Pulse Rate from SpO2 Sensor Pulse Rhythm [Finger] Pulse Strength [Finger] Respiratory Rate 26 H Respiratory Effort / Characteristics Respiratory Depth Respiratory Pattern Blood Pressure 152/100 H Blood Pressure [Right Arm] Blood Pressure Mean 125 Blood Pressure Mean [Right Arm] Blood Pressure Position [Right Arm] Pulse Oximetry Oxygen Delivery Method Sepsis Recent Fever Within 48 Hours Sepsis New/Unexplained Change in Mental Status Sepsis Action Taken by Nursing 10/18/23 10:30 10/18/23 10:30 10/18/23 10:30 Temperature Temperature Source Pulse Rate 70 Pulse Rate [Finger] 72 71 Pulse Rate from SpO2 Sensor 72 Pulse Rhythm [Finger] Regular Regular Pulse Strength [Finger] Normal Normal Respiratory Rate 18 18 18 Respiratory Effort / Characteristics Non-Labored Spontaneous Non-Labored Respiratory Depth Normal Normal Respiratory Pattern Regular Regular Blood Pressure Blood Pressure [Right Arm] 189/82 H 189/82 H Blood Pressure Mean Blood Pressure Mean [Right Arm] 117 117 Blood Pressure Position [Right Arm] Lying Pulse Oximetry 97 97 98 Oxygen Delivery Method Room Air Sepsis Recent Fever Within 48 Hours Sepsis New/Unexplained Change in Mental Status Sepsis Action Taken by Nursing General: Well developed well nourished older female in no acute distress, breathing comfortably on room air. She has a facial droop on the left which is affecting her speech but she has no word salad. HEENT: Normal cephalic atraumatic facial droop on lower. Pupils are equal round and reactive to light. Extraocular movements are intact. Oropharynx is pink with moist mucous membranes. No swelling of the mouth lips or tongue. Neck: Supple with a midline trachea. No meningeal signs or stiffness, no JVD or bruits. No Stridor. Chest: Clear to auscultation bilaterally. No wheezes or rhonchi. No increased work of breathing. Heart: Regular rate and rhythm without murmurs or gallops. Abdomen: Soft nontender, nondistended without rebound guarding or rigidity. Extremities: No cyanosis clubbing or edema. No calf tenderness or assymetry Spine/Back. Non tender to palpation. No CVA tenderness Skin: Good turgor without rashes. Neurologic exam: Cranial nerves two through 12 are intact with exception of facial droop on the. Motor and sensation are intact and symmetrical throughout. She feels she cannot move her arm but she is moving it and does follow commands there is seems to be a coordination issue. Course Administered Medications Clopidogrel Bisulfate (Clopidogrel Bisulfate 75 Mg Tab) 75 mg PO QAM LISETTE Stop: 11/17/23 11:59 Last Admin: 10/18/23 12:14 Dose: 75 mg Documented By: LISA Famotidine (Famotidine 40 Mg Tablet) 40 mg PO DAILY LISETTE Stop: 11/17/23 12:02 Last Admin: 10/18/23 14:24 Dose: Not Given Documented By: IBAN Heparin Sodium (Porcine) (Heparin Sod 5,000 Unit/0.5 Ml Vial) 5,000 units SQ Q8 LISETTE Stop: 11/17/23 13:59 Last Admin: 10/18/23 14:47 Dose: 5,000 units Documented By: IBAN Discontinued Medications Aspirin (Aspirin 300 Mg Supp) 300 mg MO ONE ONE Stop: 10/18/23 10:51 Last Admin: 10/18/23 11:05 Dose: 300 mg Documented By: PIERRE Sodium Chloride (Nss) 500 mls @ 999 mls/hr IV .Q31M ONE Stop: 10/18/23 10:52 Last Infusion: 10/18/23 11:29 Dose: Infused Documented By: Admin: 10/18/23 10:44 Dose: 999 mls/hr Documented By: PIERRE Ioversol (Optiray 320 150ml) 120 ml IV ONCE ONE Stop: 10/18/23 09:37 Last Admin: 10/18/23 09:36 Dose: 120 ml Documented By: MILLER Losartan Potassium (Losartan Potassium 50 Mg Tab) 50 mg PO NOW STA Stop: 10/18/23 11:54 Last Admin: 10/18/23 12:14 Dose: 50 mg Documented By: LISA Critical Care Time Critical Care Time: Yes Total Critical Care Time: 40 Due to the patient's acute stroke like symptoms, need to call a stroke alert, frequent reassessment and consultation with the stroke neurologist as well as discussion with the family and hospitalist, consideration for thrombolytics, I have personally spent greater than 30 minutes of critical care time in the direct management of this patient. This includes bedside care, interpretation of diagnostic studies, and testing, discussion with consultants, patient, and family members, and other required patient management activities. This 30 minutes is in excess of all separately billable procedures. Medical Decision Making Differential Diagnosis Stroke, intracranial process, electrolyte or metabolic abnormality, infection, anemia Medical Records Attestation: I reviewed the patient's medical records. Home Medications Current Medication List: was personally reviewed by me Laboratory Data Attestation: I reviewed the patient's lab results. 10/18/23 09:20 10/18/23 09:20 Lab Results 10/18/23 10/18/23 Range/Units 09:20 09:24 WBC 4.06 L (4.8-10.8) K/ul RBC 4.36 (4.20-5.40) M/uL Hgb 12.7 (12.0-16.0) g/dl POC Hgb 13.3 (12.0-16.0) g/dl Hct 39.1 (37.0-47.0) % POC Hct 39 (37-47) % MCV 89.7 (80.0-100.0) fL MCH 29.1 (25.0-34.0) pg MCHC 32.5 (32.0-36.0) g/dL RDW Std Deviation 47.6 H (36.4-46.3) fL RDW Coeff of Rocco 14.5 (11.5-14.5) % Plt Count 204 (130-400) K/uL MPV 9.8 (9.4-12.4) fL Immature Gran % (Auto) 0.2 % Neut % (Auto) 50.3 % Lymph % (Auto) 39.4 % [place] % (Auto) 7.9 % Eos % (Auto) 2.0 % Baso % (Auto) 0.2 % Neut # (Auto) 2.04 (1.40-6.50) K/uL Lymph # (Auto) 1.60 (1.20-3.40) K/uL [place] # (Auto) 0.32 (0.11-0.59) K/uL Eos # (Auto) 0.08 (0.00-0.50) K/uL Baso # (Auto) 0.01 (0.00-0.20) K/uL Immature Gran # (Auto) 0.01 (0.01-0.20) K/uL PT 10.1 (9.0-12.0) Seconds INR 0.9 (0.9-1.1) APTT < 20 L (21-31) Seconds PTT Ratio 0.7 POC Sodium 142 (135-144) mmol/L Sodium 142 (136-145) mmol/L POC Potassium 4.1 (3.3-5.0) mmol/L Potassium 4.1 (3.5-5.1) mmol/L POC Chloride 107 (101-112) mmol/L Chloride 108 H (98-107) mmol/L Carbon Dioxide 28 (21-32) mmol/L POC Total CO2 28 (24-31) mmol/L Anion Gap 6 (3-11) POC Anion Gap 13.0 L (16-25) mmol/L POC BUN 21 H (7-18) mg/dl BUN 22 (6-23) mg/dl Creatinine 1.23 H (0.6-1.2) mg/dl POC Creatinine 1.2 (0.6-1.3) mg/dl Est Cr Clr Drug Dosing 31.5 ml/min Est GFR ( Amer) 48.0 ml/min Est GFR (Non-Af Amer) 41.4 ml/min BUN/Creatinine Ratio 17.9 (10-20) Glucose 106 H (70-99(Fasting)) mg/dl POC Glucose (other) 101 H (70-99) mg/dl Calcium 9.9 (8.6-10.3) mg/dl POC Ioniz Calcium Michael 1.23 (1.12-1.32) mmol/l Magnesium 2.0 (1.7-2.4) mg/dl Total Bilirubin 0.4 (0.2-1.0) mg/dl AST 31 (13-39) U/L ALT 25 (7-52) U/L Alkaline Phosphatase 85 (34-104) U/L Troponin I High Sens 6.0 (0-14) pg/ml Total Protein 7.4 (6.0-8.3) gm/dl Albumin 4.5 (3.4-5.0) gm/dl Globulin 2.9 (2.5-4.0) gm/dl Albumin/Globulin Ratio 1.6 (0.9-2) Imaging Data Attestation: I personally reviewed and interpreted this imaging study as follows: My Impression: Head CTno hemorrhage or mass effect seen Radiologist's Impression: Head CT 10/18/23 09:[address] OF THE BRAIN; CT ANGIOGRAM OF THE BRAIN; CT ANGIOGRAM OF THE NECK CLINICAL HISTORY: Neurological deficit. Stroke like symptoms. Left-sided weakness. COMPARISON STUDY: No priors. TECHNIQUE: Unenhanced axial CT scan of the brain is performed. Subsequently, following the IV administration of 120 of Optiray 320, CT angiogram of the head and neck was performed from the aortic arch to the vertex. Images are reviewed in the axial, sagittal, and coronal planes. 3-D MIPS images are created and assessed. IV contrast was administered without complication. All measurements were calculated based on NASCET criteria. A dose lowering technique was utilized adhering to the principles of ALARA. CT DOSE: 927.78 mGy.cm FINDINGS: Brain parenchyma: There is age-related involutional change noting moderate subcortical and periventricular microangiopathic disease. A chronic lacunar infarct is seen in the left basal ganglia. There is no hemorrhage, mass effect, or evidence of acute territorial ischemia by CT criteria. There is no evidence of enhancing mass lesion on the angiogram phase images. The ventricles, sulci, and cisterns are prominent secondary to involutional change. Schuster-white matter differentiation is preserved. No extra-axial fluid collection is seen. Thoracic aorta: There is atherosclerotic calcification of the thoracic aorta. Visualized portions of the thoracic aorta are normal in caliber. The aortic arch demonstrates standard 3-vessel anatomy. Right carotid arterial system: The right common carotid artery is widely patent, as are the right internal and external carotid arteries. Calcified plaque is noted in the carotid bulb. Left carotid arterial system: The left common carotid artery is widely patent, as is the left external carotid artery. There is advanced atherosclerotic plaque in the carotid bulb. This causes less than 50% stenosis of the proximal internal carotid artery. The mid to distal portions of the left internal carotid artery are widely patent. Vertebral arteries: There is mild to moderate stenosis at the origin of the operative artery. The right vertebral artery is dominant and otherwise patent without atherosclerotic plaque and irregularity. The left vertebral artery is diminutive and patent. Subclavian arteries: Widely patent bilaterally. Intracranial vasculature: There is atherosclerotic calcification of the cavernous carotid and vertebral arteries. The internal carotid arteries are patent at the skull base, as are the anterior and middle cerebral arteries bilaterally. The vertebrobasilar system and posterior cerebral arteries are widely patent. The right vertebral artery is dominant. The left vertebral artery is diminutive and terminates as the PICA. There is origin of the right posterior cerebral artery. 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 No additional aneurysms identified. No high-grade stenosis or focal vessel cut off is seen throughout the intracranial circulation. Jugular veins: Patent bilaterally. Dural sinuses: Patent. Lung apices: Partially visualized upper lobe lung parenchyma appears clear. Soft tissues: The visualized pharyngeal soft tissues are normal in appearance noting angiographic phase technique. The oropharyngeal airway appears widely patent. The right lobe of the thyroid gland is atrophic versus surgically absent. The salivary glands are normal in appearance. No cervical lymphadenopathy is seen. Skeletal structures: The skeletal structures are osteopenic. The calvarium appears intact. The cervical spine is maintained noting multilevel spondylosis. Orbits: The bony orbits are intact. Orbital contents are normal as visualized noting bilateral ocular lens implants. Sinuses and mastoids: There is trace mucosal thickening in the left maxillary antrum. The remaining paranasal sinuses are clear. The mastoid air cells are well pneumatized. IMPRESSION: 1. There is no hemorrhage, mass effect, or evidence of acute territorial ischemia by CT criteria. 2. 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 3. Otherwise unremarkable CT angiogram of the brain. 4. Atherosclerotic plaque causes less than 50% stenosis at the origin of the left internal carotid artery. 5. Mild/moderate stenosis is seen at the origin of the dominant right vertebral artery. 6. Additional findings as above. ACT 112: Negative or not required by law. Electronically signed by: Satish Crabtree M.D. 10/18/2023 9:52 AM Head CTA 10/18/23 09:[address] OF THE BRAIN; CT ANGIOGRAM OF THE BRAIN; CT ANGIOGRAM OF THE NECK CLINICAL HISTORY: Neurological deficit. Stroke like symptoms. Left-sided weakness. COMPARISON STUDY: No priors. TECHNIQUE: Unenhanced axial CT scan of the brain is performed. Subsequently, following the IV administration of 120 of Optiray 320, CT angiogram of the head and neck was performed from the aortic arch to the vertex. Images are reviewed in the axial, sagittal, and coronal planes. 3-D MIPS images are created and assessed. IV contrast was administered without complication. All measurements were calculated based on NASCET criteria. A dose lowering technique was utilized adhering to the principles of ALARA. CT DOSE: 927.78 mGy.cm FINDINGS: Brain parenchyma: There is age-related involutional change noting moderate subcortical and periventricular microangiopathic disease. A chronic lacunar infarct is seen in the left basal ganglia. There is no hemorrhage, mass effect, or evidence of acute territorial ischemia by CT criteria. There is no evidence of enhancing mass lesion on the angiogram phase images. The ventricles, sulci, and cisterns are prominent secondary to involutional change. Schuster-white matter differentiation is preserved. No extra-axial fluid collection is seen. Thoracic aorta: There is atherosclerotic calcification of the thoracic aorta. Visualized portions of the thoracic aorta are normal in caliber. The aortic arch demonstrates standard 3-vessel anatomy. Right carotid arterial system: The right common carotid artery is widely patent, as are the right internal and external carotid arteries. Calcified plaque is noted in the carotid bulb. Left carotid arterial system: The left common carotid artery is widely patent, as is the left external carotid artery. There is advanced atherosclerotic plaque in the carotid bulb. This causes less than 50% stenosis of the proximal internal carotid artery. The mid to distal portions of the left internal carotid artery are widely patent. Vertebral arteries: There is mild to moderate stenosis at the origin of the operative artery. The right vertebral artery is dominant and otherwise patent without atherosclerotic plaque and irregularity. The left vertebral artery is diminutive and patent. Subclavian arteries: Widely patent bilaterally. Intracranial vasculature: There is atherosclerotic calcification of the cavernous carotid and vertebral arteries. The internal carotid arteries are patent at the skull base, as are the anterior and middle cerebral arteries bilaterally. The vertebrobasilar system and posterior cerebral arteries are widely patent. The right vertebral artery is dominant. The left vertebral artery is diminutive and terminates as the PICA. There is origin of the right posterior cerebral artery. 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 No additional aneurysms identified. No high-grade stenosis or focal vessel cut off is seen throughout the intracranial circulation. Jugular veins: Patent bilaterally. Dural sinuses: Patent. Lung apices: Partially visualized upper lobe lung parenchyma appears clear. Soft tissues: The visualized pharyngeal soft tissues are normal in appearance noting angiographic phase technique. The oropharyngeal airway appears widely patent. The right lobe of the thyroid gland is atrophic versus surgically absent. The salivary glands are normal in appearance. No cervical lymphadenopathy is seen. Skeletal structures: The skeletal structures are osteopenic. The calvarium appears intact. The cervical spine is maintained noting multilevel spondylosis. Orbits: The bony orbits are intact. Orbital contents are normal as visualized noting bilateral ocular lens implants. Sinuses and mastoids: There is trace mucosal thickening in the left maxillary antrum. The remaining paranasal sinuses are clear. The mastoid air cells are well pneumatized. IMPRESSION: 1. There is no hemorrhage, mass effect, or evidence of acute territorial ischemia by CT criteria. 2. 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 3. Otherwise unremarkable CT angiogram of the brain. 4. Atherosclerotic plaque causes less than 50% stenosis at the origin of the left internal carotid artery. 5. Mild/moderate stenosis is seen at the origin of the dominant right vertebral artery. 6. Additional findings as above. ACT 112: Negative or not required by law. Electronically signed by: Satish Crabtree M.D. 10/18/2023 9:52 AM Neck CTA 10/18/23 09:[address] OF THE BRAIN; CT ANGIOGRAM OF THE BRAIN; CT ANGIOGRAM OF THE NECK CLINICAL HISTORY: Neurological deficit. Stroke like symptoms. Left-sided weakness. COMPARISON STUDY: No priors. TECHNIQUE: Unenhanced axial CT scan of the brain is performed. Subsequently, following the IV administration of 120 of Optiray 320, CT angiogram of the head and neck was performed from the aortic arch to the vertex. Images are reviewed in the axial, sagittal, and coronal planes. 3-D MIPS images are created and assessed. IV contrast was administered without complication. All measurements were calculated based on NASCET criteria. A dose lowering technique was utilized adhering to the principles of ALARA. CT DOSE: 927.78 mGy.cm FINDINGS: Brain parenchyma: There is age-related involutional change noting moderate subcortical and periventricular microangiopathic disease. A chronic lacunar infarct is seen in the left basal ganglia. There is no hemorrhage, mass effect, or evidence of acute territorial ischemia by CT criteria. There is no evidence of enhancing mass lesion on the angiogram phase images. The ventricles, sulci, and cisterns are prominent secondary to involutional change. Schuster-white matter differentiation is preserved. No extra-axial fluid collection is seen. Thoracic aorta: There is atherosclerotic calcification of the thoracic aorta. Visualized portions of the thoracic aorta are normal in caliber. The aortic arch demonstrates standard 3-vessel anatomy. Right carotid arterial system: The right common carotid artery is widely patent, as are the right internal and external carotid arteries. Calcified plaque is noted in the carotid bulb. Left carotid arterial system: The left common carotid artery is widely patent, as is the left external carotid artery. There is advanced atherosclerotic plaque in the carotid bulb. This causes less than 50% stenosis of the proximal internal carotid artery. The mid to distal portions of the left internal carotid artery are widely patent. Vertebral arteries: There is mild to moderate stenosis at the origin of the operative artery. The right vertebral artery is dominant and otherwise patent without atherosclerotic plaque and irregularity. The left vertebral artery is diminutive and patent. Subclavian arteries: Widely patent bilaterally. Intracranial vasculature: There is atherosclerotic calcification of the cavernous carotid and vertebral arteries. The internal carotid arteries are patent at the skull base, as are the anterior and middle cerebral arteries bilaterally. The vertebrobasilar system and posterior cerebral arteries are widely patent. The right vertebral artery is dominant. The left vertebral artery is diminutive and terminates as the PICA. There is origin of the right posterior cerebral artery. 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 No additional aneurysms identified. No high-grade stenosis or focal vessel cut off is seen throughout the intracranial circulation. Jugular veins: Patent bilaterally. Dural sinuses: Patent. Lung apices: Partially visualized upper lobe lung parenchyma appears clear. Soft tissues: The visualized pharyngeal soft tissues are normal in appearance noting angiographic phase technique. The oropharyngeal airway appears widely patent. The right lobe of the thyroid gland is atrophic versus surgically absent. The salivary glands are normal in appearance. No cervical lymphadenopathy is seen. Skeletal structures: The skeletal structures are osteopenic. The calvarium appears intact. The cervical spine is maintained noting multilevel spondylosis. Orbits: The bony orbits are intact. Orbital contents are normal as visualized noting bilateral ocular lens implants. Sinuses and mastoids: There is trace mucosal thickening in the left maxillary antrum. The remaining paranasal sinuses are clear. The mastoid air cells are well pneumatized. IMPRESSION: 1. There is no hemorrhage, mass effect, or evidence of acute territorial ischemia by CT criteria. 2. 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 3. Otherwise unremarkable CT angiogram of the brain. 4. Atherosclerotic plaque causes less than 50% stenosis at the origin of the left internal carotid artery. 5. Mild/moderate stenosis is seen at the origin of the dominant right vertebral artery. 6. Additional findings as above. ACT 112: Negative or not required by law. Electronically signed by: Satish Crabtree M.D. 10/18/2023 9:52 AM ECG Data Attestation: I personally reviewed and interpreted this ECG as follows: Indication: + weakness Rate (beats per minute): 72 Rhythm: + normal sinus ECG Intervals/blocks: + Left bundle branch block, + Normal QT and + Normal MO ECG [place]: + Normal ECG ST segments: + Normal ST segments ECG Findings: no PACs or no PVCs Comparison ECG Date: from (07/11/2019) Change: no significant change MDM Narrative This patient is an 78-year-old female who comes in after having left-sided facial droop and coordination problems in her left arm she does not seem to be weak she just feels she cannot use it. She woke up this way at 630 this morning so this was a wake-up stroke type picture. she was last known well at around 9:00 last night when she went to bed. She is on no blood thinners .no fall or trauma. her reports that she does have 1 kidney since a child we did an i-STAT and her creatinine was normal at 1.2 her blood sugar was also normal. I discussed the risk and benefits of doing CAT scans and they consented. I did call a stroke alert as per protocol given her wake-up stroke. I also requested to talk to the [place] stroke teleneurologist. Multiple blood testing was obtained she was placed on occult crop nutrition scientist. The patient was evaluated by Dr. Reichwein, who I talked at length about the case. He feels she does need to be admitted for stroke workup but does not feel she is a thrombolytic candidate given the fact that she was a wake-up stroke and has been off for at least 3 hours at this point. She has no evidence of acute large vessel occlusion at this point. he did recommend loading her with Plavix 300 mg when she passes swallowing study. Since she does have a history of a gastric bypass . He recommended holding aspirin for now but if she gets worse they may want to consider adding aspirin but he told me that the hospitalist could always call him. I did relay these recommendations to the hospitalist Dr. Young, we talked at length as well he also recommends a simvastatin 40 mg. He recommended a IV fluid bolus of and I gave her 500 cc IV normal saline. He also recommended that we had a homocystine level which I did. I have discussed the case at length with Dr. Young , who is a hospitalist, in consultation and she will admit/observe the patient for further inpatient treatment and evaluation. Continuous cardiac monitoring: Orders placed in EMR for continuous crop nutrition scientist call upon my evaluation patient noted to be in normal sinus rhythm rate of 75 Impression & Plan Stroke, Weakness, Facial weakness, Impaired coordination of upper extremity Discharge Plan Visit Data Chief Complaint: TIA Symptoms Stated Complaint: FACIAL DROOP, ARM NUMBNESS, TROUBLE TALKING ED Provider: Omer Lowry Discharge Problem: Stroke, Weakness, Facial weakness, Impaired coordination of upper extremity Patient Disposition: Admitted As Inpatient Discharge Instructions Interventions: ED Discharge Assessment Last Done: 10/18/23 12:03 Discharge Problem: Stroke Qualifiers: CVA mechanism: unspecified Qualified Code(s): I63.9 - Cerebral infarction, unspecified
[2023-10-18 09:36] LABS: Basophils # (auto) 0.01 K/uL (0.00-0.20); Basophils % (auto) 0.2 %; Eosinophils # (auto) 0.08 K/uL (0.00-0.50); Hematocrit (blood only) 39.1 % (37.0-47.0); Hemoglobin 12.7 g/dl (12.0-16.0); Immature Granulocytes # (auto) 0.01 K/uL (0.01-0.20); Immature Granulocytes % (auto) 0.2 %; Lymphocytes % (auto) 39.4 %; Mean Corpuscular Hemoglobin 29.1 pg (25.0-34.0); Mean Corpuscular Hgb Conc 32.5 g/dL (32.0-36.0); Mean Corpuscular Volume 89.7 fL (80.0-100.0); Mean Platelet Volume 9.8 fL (9.4-12.4); Monocytes # (auto) 0.32 K/uL (0.11-0.59); Monocytes % (auto) 7.9 %; Neutrophils # (auto) 2.04 K/uL (1.40-6.50); Neutrophils % (auto) 50.3 %; Platelet Count 204 K/uL (130-400); RDW Coefficient of Variation 14.5 % (11.5-14.5); RDW Standard Deviation 47.6 fL (36.4-46.3); Red Blood Count 4.36 M/uL (4.20-5.40); White Blood Count 4.06 K/ul (4.8-10.8)
[2023-10-18] MEDS: OPTIRAY 320 150ml IV ONE (09:36)
[2023-10-18 09:37] LABS: iSTAT Creatinine 1.2 mg/dl (0.6-1.3); iSTAT Hemoglobin 13.3 g/dl (12.0-16.0); iSTAT Ionized Calcium 1.23 mmol/l (1.12-1.32); iSTAT Potassium 4.1 mmol/L (3.3-5.0)
[2023-10-18 09:53] LABS: Albumin Globulin Ratio 1.6 (0.9-2); Albumin Level 4.5 gm/dl (3.4-5.0); BUN Creatinine Ratio 17.9 (10-20); Bilirubin,Total 0.4 mg/dl (0.2-1.0); Calcium 9.9 mg/dl (8.6-10.3); Creatinine Clr Calc Pharmacy 31.5 ml/min; Est GFR (Non-African American) 41.4 ml/min; Globulin 2.9 gm/dl (2.5-4.0); Potassium 4.1 mmol/L (3.5-5.1); Total Protein 7.4 gm/dl (6.0-8.3)
--- NOTE | 2023-10-18 09:54 | CT Scan Report ---
UNENHANCED CT OF THE BRAIN; CT ANGIOGRAM OF THE BRAIN; CT ANGIOGRAM OF THE NECK CLINICAL HISTORY: Neurological deficit. Stroke like symptoms. Left-sided weakness. COMPARISON STUDY: No priors. TECHNIQUE: Unenhanced axial CT scan of the brain is performed. Subsequently, following the IV adminis tration of 120 of Optiray 320, CT angiogram of the head and neck was performed from the aortic arch t o the vertex. Images are reviewed in the axial, sagittal, and coronal planes. 3-D MIPS images are cre ated and assessed. IV contrast was administered without complication. All measurements were calculate d based on NASCET criteria. A dose lowering technique was utilized adhering to the principles of ALA RA. CT DOSE: 927.78 mGy.cm FINDINGS: Brain parenchyma: There is age-related involutional change noting moderate subcortical and periventri cular microangiopathic disease. A chronic lacunar infarct is seen in the left basal ganglia. There is no hemorrhage, mass effect, or evidence of acute territorial ischemia by CT criteria. There is no ev idence of enhancing mass lesion on the angiogram phase images. The ventricles, sulci, and cisterns ar e prominent secondary to involutional change. Schuster-white matter differentiation is preserved. No extr a-axial fluid collection is seen. Thoracic aorta: There is atherosclerotic calcification of the thoracic aorta. Visualized portions of the thoracic aorta are normal in caliber. The aortic arch demonstrates standard 3-vessel anatomy. Right carotid arterial system: The right common carotid artery is widely patent, as are the right int ernal and external carotid arteries. Calcified plaque is noted in the carotid bulb. Left carotid arterial system: The left common carotid artery is widely patent, as is the left externa l carotid artery. There is advanced atherosclerotic plaque in the carotid bulb. This causes less than 50% stenosis of the proximal internal carotid artery. The mid to distal portions of the left interna l carotid artery are widely patent. Vertebral arteries: There is mild to moderate stenosis at the origin of the operative artery. The rig ht vertebral artery is dominant and otherwise patent without atherosclerotic plaque and irregularity. The left vertebral artery is diminutive and patent. Subclavian arteries: Widely patent bilaterally. Intracranial vasculature: There is atherosclerotic calcification of the cavernous carotid and vertebr al arteries. The internal carotid arteries are patent at the skull base, as are the anterior and midd le cerebral arteries bilaterally. The vertebrobasilar system and posterior cerebral arteries are wide ly patent. The right vertebral artery is dominant. The left vertebral artery is diminutive and termin ates as the PICA. There is origin of the right posterior cerebral artery. There is a 6 mm aneur ysm of the supraclinoid right internal carotid artery best seen on axial image #111. No additional an eurysms identified. No high-grade stenosis or focal vessel cut off is seen throughout the intracrania l circulation. Jugular veins: Patent bilaterally. Dural sinuses: Patent. Lung apices: Partially visualized upper lobe lung parenchyma appears clear. Soft tissues: The visualized pharyngeal soft tissues are normal in appearance noting angiographic pha se technique. The oropharyngeal airway appears widely patent. The right lobe of the thyroid gland is atrophic versus surgically absent. The salivary glands are normal in appearance. No cervical lymphade nopathy is seen. Skeletal structures: The skeletal structures are osteopenic. The calvarium appears intact. The cervic al spine is maintained noting multilevel spondylosis. Orbits: The bony orbits are intact. Orbital contents are normal as visualized noting bilateral ocular lens implants. Sinuses and mastoids: There is trace mucosal thickening in the left maxillary antrum. The remaining p aranasal sinuses are clear. The mastoid air cells are well pneumatized. IMPRESSION: 1. There is no hemorrhage, mass effect, or evidence of acute territorial ischemia by CT criteria. 2. 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 3. Otherwise unremarkable CT angiogram of the brain. 4. Atherosclerotic plaque causes less than 50% stenosis at the origin of the left internal carotid ar deyanira. 5. Mild/moderate stenosis is seen at the origin of the dominant right vertebral artery. 6. Additional findings as above. ACT 112: Negative or not required by law. Electronically signed by: Satish Crabtree M.D. 10/18/2023 9:52 AM
[2023-10-18 10:14] LABS: INR 0.9 (0.9-1.1); Partial Thromboplastin Ratio 0.7; Prothrombin Time 10.1 Seconds (9.0-12.0)
--- NOTE | 2023-10-18 10:37 | History & Physical Report ---
Date of Service October 18, 2023 Assessment & Plan (1) Acute right MCA stroke: (2) Weakness: Plan Ms. Plasencia is an 78 year old female with hx of HLD, hypothyroidism, HTN, chronic LBBB, GERD, Hx of Gastric bypass(), CKD III, solitary kidney (due to trauma), hx of CLAUDE-BSO, prediabeteswho is admitted for stroke. Patient with reports of improving symptoms at this time. #Right MCA infarct c/b left facial droop and left upper arm weakness -Last well known 2099, woke with symptoms, no thrombolytics administered MRI with right MCA infarct and chronic lacunar infarct -Recommended plavix single agent therapy when able to take po given history of bypass -ASA loaded rectally -Passed dysphagia screen -Start plavix 75 mg daily -Discontinue home statin for simvastatin 40mg daily -Lipid panel and A1C in am -Homocysteine, TSH, B12, Folate in am ECHO Monitor on tele PT/OT/Speech #Right ICA aneurysm 6mm aneurysm right ICA Images pushed to Jimmie, discussed with Jimmie--need for likely OP follow up with Neurovascular #HTN administered 50mg home losartan for slow lowering of BP Resume home losartan 100mg daily qam #CKD III Cr stable, baseline 1.2-1.3 s/p 500cc IVF in ED s/p CTA Trend BMP #HLD: LDL 107, total 207 07/2023 atorvastatin 10--increase simvastatin 40 #GERD Endoscopy was normal 06/2023 Continue famotidine daily and well controlled #Prediabetes last A1C check 5.8 in 07/2023 #Hypothyroidism -TSH 4.02 07/21/2023 continue Synthroid 50mcg DVT ppx heparin sq Admit PCU/tele Admission and Anticipated Discharge Date Admission Date: Time spent evaluating patient, direct bedside care, chart review, placing orders, interpretation of diagnostic studies, discussion with consultants, patient, and family members, as well as other required patient management activi ties is 75 minutes. History of Present Illness Chief Complaint: Stroke Primary Care Provider: Agustín Sin MD Ms. Plasencia is an 78 year old female with hx of HLD, hypothyroidism, HTN, chronic LBBB, GERD, Hx of Gastric bypass(), CKD III, solitary kidney (due to trauma), hx of CLAUDE-BSO, prediabetes who presented to [facility] ED due to left sided weakness upon awakening this morning. Patient went to bed around 2100 and awoke this morning around 0630 with symptoms. Patient states she has been in her usual state of health prior to this morning. Symptoms marked by left facial droop, left arm weakness/flaccidity. Neurostoke evaluated patient in ED. TNK not administered. Advised to load with plavix, however not cleared by dysphagia screen, therefore rectal asa administered. Advised to continue on single plavix therapy 2/2 history of gastric bypass. Upon exam, patient reports improvement in symptoms--notably left facial droop improving and better control/mobility of left arm. In the ED, vitals were notable for BP of 150-180s, HR of 80s, and O2 sat of high 90s on room air, afebrile Imaging: CT with old lacunar infarct, CTA with 6mm, MRI with acute right MCA infarct EKG chronic LBBB ED interventions: asa rectally, later passed dysphagia screen: plavix, losartan added Consultants: Neurology Patient to be admitted to PCU/tele for further evaluation and management of right MCA stroke Allergies Allergy/AdvReac Type Severity Reaction Status Date / Time bee venom protein (honey bee) Allergy Severe Anaphylaxis Verified 08/18/18 08:00 Home Medications Medication Instructions Recorded Confirmed Type atorvastatin 10 mg tablet (Lipitor) 10 mg PO MONTHUR 07/06/18 10/18/23 History calcium carbonate (Calcium 600) 600 mg PO QAM 07/06/18 10/18/23 History cyanocobalamin (vitamin B-12) 500 2,500 mcg PO QAM 07/06/18 10/18/23 History mcg tablet (Vitamin B-12) levothyroxine 50 mcg tablet 50 mcg PO QAM 07/06/18 10/18/23 History (Synthroid) losartan 100 mg tablet (Cozaar) 100 mg PO QAM 07/06/18 10/18/23 History vit no.95-ferrous 1 tab PO DAILY 07/06/18 10/18/23 History fumarate 28 mg-folic acid 800 mcg tablet () polyethylene glycol 3350 17 gram 17 g PO DAILY PRN Constipation 08/17/18 10/18/23 History oral powder packet (Miralax) diclofenac sodium 1 % topical gel 1 ea topical UD 10/18/23 10/18/23 History famotidine 40 mg tablet 40 mg PO DAILY 10/18/23 10/18/23 History magnesium 250 mg tablet 250 mg PO DAILY PRN Other 10/18/23 10/18/23 History Past Med/Surg History Problem List (Updated 10/18/23 @ 13:27 by Maryann Young MD) Acute right MCA stroke Impaired coordination of upper extremity (Acute) Facial weakness (Acute) Stroke (Acute) Weakness (Acute) Encounter for pre-operative examination Chest pain (Acute) Complete left bundle branch block (LBBB) determined by ECG (Acute) Elevated lipase S/P gastric bypass GERD (gastroesophageal reflux disease) Solitary kidney, acquired (Chronic) Surgically absent after childhood trauma when she fell off a swing CKD (chronic kidney disease), stage III (Chronic) Intestinal postoperative nonabsorption (Chronic) Dyslipidemia (Chronic) Acquired hypothyroidism (Chronic) Medical History (Updated 10/18/23 @ 13:27 by Maryann Young MD) GERD (gastroesophageal reflux disease) Migraine HX Essential hypertension Constipation by delayed colonic transit Generalized osteoarthrosis History of diabetes mellitus resolved following bariatric surgery Surgical History History of colonoscopy History of tooth extraction History of thyroid surgery removal of benign nodule 1983 History of appendectomy History of nephrectomy, unilateral left History of total abdominal hysterectomy History of arthroplasty of right shoulder x2 - 2004, 2003 History of gastric bypass Family History Brother Family history of diabetes mellitus Family hx of colon cancer Social History Smoking Status: Never smoker Second Hand Exposure: No; Do You Dip or Chew Tobacco: No; Tobacco Cessation Education Requested by Patient: No Hx Alcohol Use: Yes Alcohol type: wine Alcohol Intake Frequency Comment: 1-2 glasses of wine 1-2 days per week Hx Substance Use: No Preferred Language: Portuguese Communication Ability: Effective Rn Surgical Required: No Beliefs That Will Affect Care: None Current Living Situation: Alone and Spouse Other Information That Helps Us Care for You: No Feels Safe at Home: Yes Safety Concerns: Feels Safe At This Time Assistive Devices: Denture - Upper and Denture - Lower Review of Systems Review of Systems: Constitutional: (-) fever/chills, (-) recent loss of weight, (-) appetite changes, (-) night sweats. Head: (-) headache, (-) dizziness. Eye: (-) blurring of vision, (-) double vision, (-) redness. Ear: (-) hearing loss, (-) discharge, (-) vertigo Nose: (-) discharge, (-) bleeding, (-) congestion, (-) post nasal drip. Throat: (-) sore throat, (-) hoarseness of voice, (-) odynophagia. Cardiovascular: (-) chest pain, (-) palpitations, (-) syncope, Respiratory: (-) shortness of breath, (-) cough, (-) wheezing, (-) hemoptysis. Neuro: (++) weakness in extremities, (++) numbness, left mandible Gastrointestinal: (-) belly pain, (-) belly distension, (-) nausea, (-) vomiting, (-) diarrhea, (-) constipation Genitourinary: (-) hematuria, (-) dysuria, (-) polyuria, (-) hesitancy, (-) frequency, (-) urinary incontinence. Musculoskeletal: (-) myalgia, (-) arthralgia. Skin: (-) rashes. Endocrine: (-) heat/cold intolerance. Physical Exam Physical Exam: GENERAL APPEARANCE: AxOx4, generally well-appearing female, no acute distress. HEENT: NC, AT. MMM. EOMI, clear conjunctiva, oropharynx clear. edentulous NECK: Supple without lymphadenopathy. No stiffness or restricted ROM. HEART: Normal rate and regular rhythm, normal S1/S1, no m/r/g LUNGS: CTAB, moving air well. No crackles or wheezes are heard. ABDOMEN: Soft, nontender, nondistended with good bowel sounds heard. BACK: No CVAT, no obvious deformity. EXTREMITIES: Without cyanosis, clubbing or edema. NEUROLOGICAL: Grossly nonfocal. Alert and oriented, moving all 4 extremities. strength in LUE 5/5 on exam proximal/distal groups, right 5/5; LLE 5/5 proximal/distal muscle groups. Visual schwartz normal in all quadrants. Pupils are round, reactive to light and accommodation. Extraocular movements are intact. Facial sensation is intact to bilaterally in all areas except left mandible where it is reported as more "dull." Facial muscle strength weaker on left than right. Slight nasolabial fold flattening. Hearing is normal bilaterally. Voice is normal. Shoulder shrug strong, and equal bilaterally.Tongue protrudes midline and moves symmetrically. Skin: Warm and dry without any rash. Results & Data Results & Data Vital Signs (Past 12 Hours) Vital Signs Temp Pulse Resp BP 10/18/23 10:09 76 10/18/23 09:06 36.6 C 72 16 187/75 H Laboratory Results Short CBC 10/18/23 Range/Units 09:20 WBC 4.06 L (4.8-10.8) K/ul Hgb 12.7 (12.0-16.0) g/dl Hct 39.1 (37.0-47.0) % Plt Count 204 (130-400) K/uL BMP 10/18/23 09:20 Sodium 142 Potassium 4.1 Chloride 108 H Carbon Dioxide 28 BUN 22 Creatinine 1.23 H Glucose 106 H Calcium 9.9 Liver Function 10/18/23 Range/Units 09:20 Total Bilirubin 0.4 (0.2-1.0) mg/dl AST 31 (13-39) U/L ALT 25 (7-52) U/L Alkaline Phosphatase 85 (34-104) U/L Albumin 4.5 (3.4-5.0) gm/dl Medications Administered Home Medications Medication Instructions Recorded Confirmed Last Taken atorvastatin 10 mg tablet (Lipitor) 10 mg PO MONTHUR 07/06/18 10/18/23 08/17/18 calcium carbonate (Calcium 600) 600 mg PO 07/06/18 10/18/23 08/17/18 cyanocobalamin (vitamin B-12) 500 2,500 mcg PO QAM 07/06/18 10/18/23 08/17/18 mcg tablet (Vitamin B-12) levothyroxine 50 mcg tablet 50 mcg PO QAM 07/06/18 10/18/23 08/18/18 04:30 (Synthroid) losartan 100 mg tablet (Cozaar) 100 mg PO QAM 07/06/18 10/18/23 08/18/18 04:30 vit no.95-ferrous 1 tab PO DAILY 07/06/18 10/18/23 08/18/18 04:30 fumarate 28 mg-folic acid 800 mcg tablet () polyethylene glycol 3350 17 gram 17 g PO DAILY PRN Constipation 08/17/18 10/18/23 08/17/18 oral powder packet (Miralax) diclofenac sodium 1 % topical gel 1 ea topical UD 10/18/23 10/18/23 Unknown famotidine 40 mg tablet 40 mg PO DAILY 10/18/23 10/18/23 Unknown magnesium 250 mg tablet 250 mg PO DAILY PRN Other 10/18/23 10/18/23 Unknown Active Medications Generic Name Dose Route Start Last Admin Trade Name Freq PRN Reason Stop Dose Admin Clopidogrel Bisulfate 75 mg 10/18/23 12:00 10/18/23 12:14 Clopidogrel Bisulfate 75 Mg Tab PO 11/17/23 11:59 75 mg QAM LISETTE Administration ECG Additional Comments: Compared to EKG in 2019, stable LBBB
[2023-10-18] MEDS: SODIUM CHLORIDE 0.9% 500 ML IV ONE (10:44)
[2023-10-18 10:50] LABS: Partial Thromboplastin Time < 20 Seconds (21-31)
[2023-10-18] MEDS: ASPIRIN 300 MG SUPP PR ONE (11:05)
[2023-10-18] MEDS ORDERED: POLYETHYLENE (MIRALAX) 17 GM PACK PO PRN (12:03)
[2023-10-18] MEDS ORDERED: PHARMACIST DISCHARGE MED REC CONSULT PRN (12:03)
[2023-10-18] MEDS: LOSARTAN POTASSIUM 50 MG TAB PO STA (12:14)
[2023-10-18] MEDS: CLOPIDOGREL BISULFATE 75 MG TAB PO SCH (12:14)
--- NOTE | 2023-10-18 12:56 | Magnetic Resonance Report ---
MRI OF THE BRAIN WITHOUT IV CONTRAST CLINICAL HISTORY: Strokelike symptoms. Left arm weakness. COMPARISON STUDY: CT of the brain performed the same day 10/28/2023. TECHNIQUE: MRI of the brain was performed utilizing various T1 and T2-weighted sequences in the axial , sagittal, and coronal planes. IV contrast was not administered for this examination. FINDINGS: Brain parenchyma: There is an approximately 2.5 cm focus of restricted diffusion in the high posterio r right frontal lobe, as well as cortical restricted diffusion the high right posterior parietal lobe consistent with an acute to subacute infarct. No additional foci of restricted diffusion are identif ied. There is no hemorrhage or mass effect. There is age-related involutional change noted and modera te subcortical and periventricular microangiopathic disease. No extra-axial fluid collection is seen. A small chronic lacunar infarct is noted in the left basal ganglia. The cerebellar tonsils are gray l in configuration. Ventricles, sulci, and cisterns: Prominent secondary to involutional change. Pituitary and sella: Unremarkable. Intracranial vasculature: Normal flow voids are maintained at the skull base. Orbits: The bony orbits are grossly intact. Orbital contents are normal in appearance noting bilatera l ocular lens implants. Sinuses and mastoids: Clear. Calvarium: Unremarkable. Cervical cord: Partially visualized cervical spinal cord is normal in morphology and signal intensity . IMPRESSION: 1. Acute to subacute right MCA territory infarct involving the high right frontoparietal cortex. 2. No additional foci of restricted diffusion are identified. 3. There is no hemorrhage or mass effect. ACT 112: Negative or not required by law. Electronically signed by: Satish Crabtree M.D. 10/18/2023 12:54 PM
[2023-10-18] MEDS: FAMOTIDINE 40 MG TABLET PO SCH (14:24)
[2023-10-18] MEDS: HEPARIN SOD 5,000 UNIT/0.5 ML VIAL SQ SCH (14:47)
[2023-10-18] MEDS ORDERED: hydrALAZINE HCL 20 MG/ML VIAL IV PRN (15:32)
--- NOTE | 2023-10-18 16:47 | Neurology Consultation ---
Date of Consultation October 18, 2023 Assessment & Plan (1) Acute right MCA stroke: Recommend continued stroke work up to include the following: Echocardiogram as part of complete stroke workup Continue frequent neurological assessments Obtain stat CT brain without contrast for any acute neurological decline Continue to monitor/control blood pressure & blood glucose Allow permissive HTN, treat SBP >220 Continue to monitor telemetry closely Recommend ZioPatch at DC if no evidence of arrhythmia during inpatient monitoring Continue to monitor renal and hepatic function, keep euvolemic Metabolic workup should include hgbA1c, fasting lipids, homocysteine, TSH, D Dimer, RPR, urinalysis Agree with plan for antiplatelet given hx of gastric surgery Ok from neurology perspective for VTE prophylaxis PT/OT/SLT to eval and treat Recommend eval for ABIMBOLA and consider outpatient polysomnography Telehealth Consultation Telehealth Information Telehealth Information: I performed this visit using a real-time telehealth connection between my location and the patients location ([facility]). After connecting through interactive tele-video, patient was identified by name and date of and/or wristband check.Patient (or authorized healthcare manufacturer representative) was informed that this was a telemedicine visit and it was being conducted confidentially over secure lines. My office door was closed and no one else was present in the room with me.Patient (or authorized healthcare manufacturer representative) provided consent to proceed with the visit, expressed an understanding of privacy and security of the telemedicine visit, and gave permission to have a hospital manufacturer representative in the room in order to assist with the visit and to conduct portions of the visit, as needed. I informed the patient (or authorized healthcare manufacturer representative) that I reviewed their record and presented the opportunity for them to ask any questions regarding the visit today. The patient agreed to participate. History of Present Illness Reason for Consultation: Stroke Requesting Physician: Dr. Young Attending Physician: Maryann Young MD History of Present Illness 78yo female right handed female with hx HTN, CKD, hyperlipidemia presented with LUE weakness, facial asymmetry and dysarthria. She noted new deficits upon awakening after going to sleep last evening without deficit. She has undergone emergent stroke imaging including CT brain without contrast, personally reviewed today, revealing no overt evidence of hemorrhage. CT angiographic studies of head and neck, also personally reviewed today, reveal no overt evidence of large vessel occlusion or significant/flow limiting stenosis. 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 She has also undergone MRI b rain revealing right MCA territory infarct appears acute to subacute. I have performed televideo consultation. She is alert & oriented; able to answer all questions appropriately, name objects on televideo monitor, repeat phrases and perform complex/embedded commands without deficit. Neurological exam is non lateralizing/nonfocal in terms of motor strength and coordination. Allergies Allergy/AdvReac Type Severity Reaction Status Date / Time bee venom protein (honey bee) Allergy Severe Anaphylaxis Verified 08/18/18 08:00 Home Medications Medication Instructions Recorded Confirmed Type atorvastatin 10 mg tablet (Lipitor) 10 mg PO MONTHUR 07/06/18 10/18/23 History calcium carbonate (Calcium 600) 600 mg PO QAM 07/06/18 10/18/23 History cyanocobalamin (vitamin B-12) 500 2,500 mcg PO QAM 07/06/18 10/18/23 History mcg tablet (Vitamin B-12) levothyroxine 50 mcg tablet 50 mcg PO QAM 07/06/18 10/18/23 History (Synthroid) losartan 100 mg tablet (Cozaar) 100 mg PO QAM 07/06/18 10/18/23 History vit no.95-ferrous 1 tab PO DAILY 07/06/18 10/18/23 History fumarate 28 mg-folic acid 800 mcg tablet () polyethylene glycol 3350 17 gram 17 g PO DAILY PRN Constipation 08/17/18 10/18/23 History oral powder packet (Miralax) diclofenac sodium 1 % topical gel 1 ea topical UD 10/18/23 10/18/23 History famotidine 40 mg tablet 40 mg PO DAILY 10/18/23 10/18/23 History magnesium 250 mg tablet 250 mg PO DAILY PRN Other 10/18/23 10/18/23 History Patient History Medical History (Updated 10/18/23 @ 16:33 by Omer Lowry MD) GERD (gastroesophageal reflux disease) Migraine HX Essential hypertension Constipation by delayed colonic transit Generalized osteoarthrosis History of diabetes mellitus resolved following bariatric surgery Surgical History History of colonoscopy History of tooth extraction History of thyroid surgery removal of benign nodule 1983 History of appendectomy History of nephrectomy, unilateral left History of total abdominal hysterectomy History of arthroplasty of right shoulder x2 - 2004, 2003 History of gastric bypass Family History Brother Family history of diabetes mellitus Family hx of colon cancer Social History Smoking Status: Never smoker Second Hand Exposure: No; Do You Dip or Chew Tobacco: No; Tobacco Cessation Education Requested by Patient: No Hx Alcohol Use: Yes Alcohol type: wine Alcohol Intake Frequency Comment: 1-2 glasses of wine 1-2 days per week Hx Substance Use: No Preferred Language: Croatian Communication Ability: Effective Physiotherapy Practice Manager Required: No Beliefs That Will Affect Care: None Current Living Situation: Alone and Spouse Other Information That Helps Us Care for You: No Feels Safe at Home: Yes Safety Concerns: Feels Safe At This Time Assistive Devices: Denture - Upper and Denture - Lower Physical Exam Neurological Examination: Mental Status: Awake and alert. Oriented to person, place, and time. Fluency naming repetition and comprehension appear grossly intact. There is notable significant dysarthria Affect remains appropriate. CN testing: I: Denies changes in ability to smell II:Reports no changes in visual acuity III/IV/: No evidence of gaze preference, hippus, nystagmus or roving eye movements V: Facial sensation reportedly grossly intact to light touch bilaterally VII: Left CN VII UMN palsy VIII: Hearing appears grossly intact to loud voice bilaterally IX/X: Palate is difficult to accurately assess XI: Shoulder shrug appears symmetric/ grossly intact bilaterally XII: Tongue protrudes midline without evidence of biting Motor exam: LUE weakness Sensory: Sensation is reportedly grossly intact throughout Coordination: Deferred Reflexes: Deferred Gait: Deferred Results & Data Vital Signs (Past 12 Hours) Vital Signs Temp Pulse Pulse Resp BP BP Pulse Ox 10/18/23 14:48 67 19 174/150 H 96 10/18/23 12:32 87 20 98 10/18/23 12:14 78 20 158/116 H 98 10/18/23 11:30 70 18 141/99 H 98 10/18/23 11:00 68 18 180/97 H 98 10/18/23 10:30 71 18 189/82 H 98 10/18/23 10:30 70 18 97 10/18/23 10:30 72 18 189/82 H 97 10/18/23 10:21 74 26 H 06/09/24 10:09 76 10/18/23 10:08 152/100 H 10/18/23 09:54 82 24 10/18/23 09:42 76 19 10/18/23 09:06 36.6 C 72 16 187/75 H O2 Del Method 10/18/23 14:48 Room Air 10/18/23 12:32 Room Air 10/18/23 12:14 Room Air 10/18/23 11:30 Room Air 10/18/23 11:00 Room Air 10/18/23 10:30 Room Air 10/18/23 10:30 10/18/23 10:30 10/18/23 10:21 10/18/23 10:09 10/18/23 10:08 10/18/23 09:54 10/18/23 09:42 10/18/23 09:06 Laboratory Results Abnormal lab results 10/18/23 10/18/23 10/18/23 Range/Units 09:20 09:24 14:06 WBC 4.06 L (4.8-10.8) K/ul RDW Std Deviation 47.6 H (36.4-46.3) fL APTT < 20 L (21-31) Seconds Chloride 108 H (98-107) mmol/L POC Anion Gap 13.0 L (16-25) mmol/L POC BUN 21 H (7-18) mg/dl Creatinine 1.23 H (0.6-1.2) mg/dl Glucose 106 H (70-99(Fasting)) mg/dl POC Glucose (other) 101 H (70-99) mg/dl Antibody Screen POSITIVE A Diagnostic Findings Head CT 10/18/23 09:[address] OF THE BRAIN; CT ANGIOGRAM OF THE BRAIN; CT ANGIOGRAM OF THE NECK CLINICAL HISTORY: Neurological deficit. Stroke like symptoms. Left-sided weakness. COMPARISON STUDY: No priors. TECHNIQUE: Unenhanced axial CT scan of the brain is performed. Subsequently, following the IV administration of 120 of Optiray 320, CT angiogram of the head and neck was performed from the aortic arch to the vertex. Images are reviewed in the axial, sagittal, and coronal planes. 3-D MIPS images are created and assessed. IV contrast was administered without complication. All measurements were calculated based on NASCET criteria. A dose lowering technique was utilized adhering to the principles of ALARA. CT DOSE: 927.78 mGy.cm FINDINGS: Brain parenchyma: There is age-related involutional change noting moderate subcortical and periventricular microangiopathic disease. A chronic lacunar infarct is seen in the left basal ganglia. There is no hemorrhage, mass effect, or evidence of acute territorial ischemia by CT criteria. There is no evidence of enhancing mass lesion on the angiogram phase images. The ventricles, sulci, and cisterns are prominent secondary to involutional change. Schuster-white matter differentiation is preserved. No extra-axial fluid collection is seen. Thoracic aorta: There is atherosclerotic calcification of the thoracic aorta. Visualized portions of the thoracic aorta are normal in caliber. The aortic arch demonstrates standard 3-vessel anatomy. Right carotid arterial system: The right common carotid artery is widely patent, as are the right internal and external carotid arteries. Calcified plaque is noted in the carotid bulb. Left carotid arterial system: The left common carotid artery is widely patent, as is the left external carotid artery. There is advanced atherosclerotic plaque in the carotid bulb. This causes less than 50% stenosis of the proximal internal carotid artery. The mid to distal portions of the left internal carotid artery are widely patent. Vertebral arteries: There is mild to moderate stenosis at the origin of the operative artery. The right vertebral artery is dominant and otherwise patent without atherosclerotic plaque and irregularity. The left vertebral artery is diminutive and patent. Subclavian arteries: Widely patent bilaterally. Intracranial vasculature: There is atherosclerotic calcification of the cavernous carotid and vertebral arteries. The internal carotid arteries are patent at the skull base, as are the anterior and middle cerebral arteries bilaterally. The vertebrobasilar system and posterior cerebral arteries are widely patent. The right vertebral artery is dominant. The left vertebral artery is diminutive and terminates as the PICA. There is origin of the right posterior cerebral artery. 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 No additional aneurysms identified. No high-grade stenosis or focal vessel cut off is seen throughout the intracranial circulation. Jugular veins: Patent bilaterally. Dural sinuses: Patent. Lung apices: Partially visualized upper lobe lung parenchyma appears clear. Soft tissues: The visualized pharyngeal soft tissues are normal in appearance noting angiographic phase technique. The oropharyngeal airway appears widely patent. The right lobe of the thyroid gland is atrophic versus surgically absent. The salivary glands are normal in appearance. No cervical lymphadenopathy is seen. Skeletal structures: The skeletal structures are osteopenic. The calvarium appears intact. The cervical spine is maintained noting multilevel spondylosis. Orbits: The bony orbits are intact. Orbital contents are normal as visualized noting bilateral ocular lens implants. Sinuses and mastoids: There is trace mucosal thickening in the left maxillary antrum. The remaining paranasal sinuses are clear. The mastoid air cells are well pneumatized. IMPRESSION: 1. There is no hemorrhage, mass effect, or evidence of acute territorial ischemia by CT criteria. 2. 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 3. Otherwise unremarkable CT angiogram of the brain. 4. Atherosclerotic plaque causes less than 50% stenosis at the origin of the left internal carotid artery. 5. Mild/moderate stenosis is seen at the origin of the dominant right vertebral artery. 6. Additional findings as above. ACT 112: Negative or not required by law. Electronically signed by: Satish Crabtree M.D. 10/18/2023 9:52 AM Head CTA 10/18/23 09:[address] OF THE BRAIN; CT ANGIOGRAM OF THE BRAIN; CT ANGIOGRAM OF THE NECK CLINICAL HISTORY: Neurological deficit. Stroke like symptoms. Left-sided weakness. COMPARISON STUDY: No priors. TECHNIQUE: Unenhanced axial CT scan of the brain is performed. Subsequently, following the IV administration of 120 of Optiray 320, CT angiogram of the head and neck was performed from the aortic arch to the vertex. Images are reviewed in the axial, sagittal, and coronal planes. 3-D MIPS images are created and assessed. IV contrast was administered without complication. All measurements were calculated based on NASCET criteria. A dose lowering technique was utilized adhering to the principles of ALARA. CT DOSE: 927.78 mGy.cm FINDINGS: Brain parenchyma: There is age-related involutional change noting moderate subcortical and periventricular microangiopathic disease. A chronic lacunar infarct is seen in the left basal ganglia. There is no hemorrhage, mass effect, or evidence of acute territorial ischemia by CT criteria. There is no evidence of enhancing mass lesion on the angiogram phase images. The ventricles, sulci, and cisterns are prominent secondary to involutional change. Schuster-white matter differentiation is preserved. No extra-axial fluid collection is seen. Thoracic aorta: There is atherosclerotic calcification of the thoracic aorta. Visualized portions of the thoracic aorta are normal in caliber. The aortic arch demonstrates standard 3-vessel anatomy. Right carotid arterial system: The right common carotid artery is widely patent, as are the right internal and external carotid arteries. Calcified plaque is noted in the carotid bulb. Left carotid arterial system: The left common carotid artery is widely patent, as is the left external carotid artery. There is advanced atherosclerotic plaque in the carotid bulb. This causes less than 50% stenosis of the proximal internal carotid artery. The mid to distal portions of the left internal carotid artery are widely patent. Vertebral arteries: There is mild to moderate stenosis at the origin of the operative artery. The right vertebral artery is dominant and otherwise patent without atherosclerotic plaque and irregularity. The left vertebral artery is diminutive and patent. Subclavian arteries: Widely patent bilaterally. Intracranial vasculature: There is atherosclerotic calcification of the cavernou s carotid and vertebral arteries. The internal carotid arteries are patent at the skull base, as are the anterior and middle cerebral arteries bilaterally. The vertebrobasilar system and posterior cerebral arteries are widely patent. The right vertebral artery is dominant. The left vertebral artery is diminutive and terminates as the PICA. There is origin of the right posterior cerebral artery. 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 No additional aneurysms identified. No high-grade stenosis or focal vessel cut off is seen throughout the intracranial circulation. Jugular veins: Patent bilaterally. Dural sinuses: Patent. Lung apices: Partially visualized upper lobe lung parenchyma appears clear. Soft tissues: The visualized pharyngeal soft tissues are normal in appearance noting angiographic phase technique. The oropharyngeal airway appears widely patent. The right lobe of the thyroid gland is atrophic versus surgically absent. The salivary glands are normal in appearance. No cervical lymphadenopathy is seen. Skeletal structures: The skeletal structures are osteopenic. The calvarium appears intact. The cervical spine is maintained noting multilevel spondylosis. Orbits: The bony orbits are intact. Orbital contents are normal as visualized noting bilateral ocular lens implants. Sinuses and mastoids: There is trace mucosal thickening in the left maxillary antrum. The remaining paranasal sinuses are clear. The mastoid air cells are well pneumatized. IMPRESSION: 1. There is no hemorrhage, mass effect, or evidence of acute territorial ischemia by CT criteria. 2. 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 3. Otherwise unremarkable CT angiogram of the brain. 4. Atherosclerotic plaque causes less than 50% stenosis at the origin of the left internal carotid artery. 5. Mild/moderate stenosis is seen at the origin of the dominant right vertebral artery. 6. Additional findings as above. ACT 112: Negative or not required by law. Electronically signed by: Satish Crabtree M.D. 10/18/2023 9:52 AM Neck CTA 10/18/23 09:[address] OF THE BRAIN; CT ANGIOGRAM OF THE BRAIN; CT ANGIOGRAM OF THE NECK CLINICAL HISTORY: Neurological deficit. Stroke like symptoms. Left-sided weakness. COMPARISON STUDY: No priors. TECHNIQUE: Unenhanced axial CT scan of the brain is performed. Subsequently, following the IV administration of 120 of Optiray 320, CT angiogram of the head and neck was performed from the aortic arch to the vertex. Images are reviewed in the axial, sagittal, and coronal planes. 3-D MIPS images are created and assessed. IV contrast was administered without complication. All measurements were calculated based on NASCET criteria. A dose lowering technique was utilized adhering to the principles of ALARA. CT DOSE: 927.78 mGy.cm FINDINGS: Brain parenchyma: There is age-related involutional change noting moderate subcortical and periventricular microangiopathic disease. A chronic lacunar infarct is seen in the left basal ganglia. There is no hemorrhage, mass effect, or evidence of acute territorial ischemia by CT criteria. There is no evidence of enhancing mass lesion on the angiogram phase images. The ventricles, sulci, and cisterns are prominent secondary to involutional change. Schuster-white matter differentiation is preserved. No extra-axial fluid collection is seen. Thoracic aorta: There is atherosclerotic calcification of the thoracic aorta. Visualized portions of the thoracic aorta are normal in caliber. The aortic arch demonstrates standard 3-vessel anatomy. Right carotid arterial system: The right common carotid artery is widely patent, as are the right internal and external carotid arteries. Calcified plaque is noted in the carotid bulb. Left carotid arterial system: The left common carotid artery is widely patent, as is the left external carotid artery. There is advanced atherosclerotic plaque in the carotid bulb. This causes less than 50% stenosis of the proximal internal carotid artery. The mid to distal portions of the left internal carotid artery are widely patent. Vertebral arteries: There is mild to moderate stenosis at the origin of the operative artery. The right vertebral artery is dominant and otherwise patent without atherosclerotic plaque and irregularity. The left vertebral artery is diminutive and patent. Subclavian arteries: Widely patent bilaterally. Intracranial vasculature: There is atherosclerotic calcification of the cavernous carotid and vertebral arteries. The internal carotid arteries are patent at the skull base, as are the anterior and middle cerebral arteries bilaterally. The vertebrobasilar system and posterior cerebral arteries are widely patent. The right vertebral artery is dominant. The left vertebral artery is diminutive and terminates as the PICA. There is origin of the right posterior cerebral artery. 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 No additional aneurysms identified. No high-grade stenosis or focal vessel cut off is seen throughout the intracranial circulation. Jugular veins: Patent bilaterally. Dural sinuses: Patent. Lung apices: Partially visualized upper lobe lung parenchyma appears clear. Soft tissues: The visualized pharyngeal soft tissues are normal in appearance noting angiographic phase technique. The oropharyngeal airway appears widely patent. The right lobe of the thyroid gland is atrophic versus surgically absent. The salivary glands are normal in appearance. No cervical lymphadenopathy is seen. Skeletal structures: The skeletal structures are osteopenic. The calvarium appears intact. The cervical spine is maintained noting multilevel spondylosis. Orbits: The bony orbits are intact. Orbital contents are normal as visualized noting bilateral ocular lens implants. Sinuses and mastoids: There is trace mucosal thickening in the left maxillary antrum. The remaining paranasal sinuses are clear. The mastoid air cells are well pneumatized. IMPRESSION: 1. There is no hemorrhage, mass effect, or evidence of acute territorial ischemia by CT criteria. 2. 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 3. Otherwise unremarkable CT angiogram of the brain. 4. Atherosclerotic plaque causes less than 50% stenosis at the origin of the left internal carotid artery. 5. Mild/moderate stenosis is seen at the origin of the dominant right vertebral artery. 6. Additional findings as above. ACT 112: Negative or not required by law. Electronically signed by: Satish Crabtree M.D. 10/18/2023 9:52 AM Brain MRI 10/18/23 12:03 MRI OF THE BRAIN WITHOUT IV CONTRAST CLINICAL HISTORY: Strokelike symptoms. Left arm weakness. COMPARISON STUDY: CT of the brain performed the same day 10/28/2023. TECHNIQUE: MRI of the brain was performed utilizing various T1 and T2-weighted sequences in the axial, sagittal, and coronal planes. IV contrast was not administered for this examination. FINDINGS: Brain parenchyma: There is an approximately 2.5 cm focus of restricted diffusion in the high posterior right frontal lobe, as well as cortical restricted diffusion the high right posterior parietal lobe consistent with an acute to subacute infarct. No additional foci of restricted diffusion are identified. There is no hemorrhage or mass effect. There is age-related involutional change noted and moderate subcortical and periventricular microangiopathic disease. No extra-axial fluid collection is seen. A small chronic lacunar infarct is noted in the left basal ganglia. The cerebellar tonsils are normal in configuration. Ventricles, sulci, and cisterns: Prominent secondary to involutional change. Pituitary and sella: Unremarkable. Intracranial vasculature: Normal flow voids are maintained at the skull base. Orbits: The bony orbits are grossly intact. Orbital contents are normal in appearance noting bilateral ocular lens implants. Sinuses and mastoids: Clear. Calvarium: Unremarkable. Cervical cord: Partially visualized cervical spinal cord is normal in morphology and signal intensity. IMPRESSION: 1. Acute to subacute right MCA territory infarct involving the high right frontoparietal cortex. 2. No additional foci of restricted diffusion are identified. 3. There is no hemorrhage or mass effect. ACT 112: Negative or not required by law. Electronically signed by: Satish Crabtree M.D. 10/18/2023 12:54 PM Medications Administered Home Medications Medication Instructions Recorded Confirmed Last Taken atorvastatin 10 mg tablet (Lipitor) 10 mg PO MONTHUR 07/06/18 10/18/23 08/17/18 calcium carbonate (Calcium 600) 600 mg PO QAM 07/06/18 10/18/23 08/17/18 cyanocobalamin (vitamin B-12) 500 2,500 mcg PO QAM 07/06/18 10/18/23 08/17/18 mcg tablet (Vitamin B-12) levothyroxine 50 mcg tablet 50 mcg PO QAM 07/06/18 10/18/23 08/18/18 04:30 (Synthroid) losartan 100 mg tablet (Cozaar) 100 mg PO QAM 07/06/18 10/18/23 08/18/18 04:30 vit no.95-ferrous 1 tab PO DAILY 07/06/18 10/18/23 08/18/18 04:30 fumarate 28 mg-folic acid 800 mcg tablet () polyethylene glycol 3350 17 gram 17 g PO DAILY PRN Constipation 08/17/18 10/18/23 08/17/18 oral powder packet (Miralax) diclofenac sodium 1 % topical gel 1 ea topical UD 10/18/23 10/18/23 Unknown famotidine 40 mg tablet 40 mg PO DAILY 10/18/23 10/18/23 Unknown magnesium 250 mg tablet 250 mg PO DAILY PRN Other 10/18/23 10/18/23 Unknown Active Medications Generic Name Dose Route Start Last Admin Trade Name Freq PRN Reason Stop Dose Admin Clopidogrel Bisulfate 75 mg 10/18/23 12:00 10/18/23 12:14 Clopidogrel Bisulfate 75 Mg Tab PO 11/17/23 11:59 75 mg QAM LISETTE Administration Famotidine 40 mg 10/18/23 12:03 10/18/23 14:24 Famotidine 40 Mg Tablet PO 11/17/23 12:02 Not Given DAILY [facility] Heparin Sodium (Porcine) 5,000 units 10/18/23 14:00 10/18/23 14:47 Heparin Sod 5,000 Unit/0.5 Ml Vial SQ 11/17/23 13:59 5,000 units Q8 LISETTE Administration
[2023-10-18] MEDS ORDERED: SIMVASTATIN 40 MG TAB PO SCH (21:00)
[2023-10-18] MEDS: SIMVASTATIN 40 MG TAB PO SCH (21:18)
[2023-10-19 04:35] LABS: Basophils # (auto) 0.01 K/uL (0.00-0.20); Basophils % (auto) 0.3 %; Eosinophils # (auto) 0.07 K/uL (0.00-0.50); Hematocrit (blood only) 34.6 % (37.0-47.0); Hemoglobin 11.4 g/dl (12.0-16.0); Immature Granulocytes # (auto) 0.01 K/uL (0.01-0.20); Immature Granulocytes % (auto) 0.3 %; Lymphocytes % (auto) 37.8 %; Mean Corpuscular Hemoglobin 29.2 pg (25.0-34.0); Mean Corpuscular Hgb Conc 32.9 g/dL (32.0-36.0); Mean Corpuscular Volume 88.7 fL (80.0-100.0); Mean Platelet Volume 10.6 fL (9.4-12.4); Monocytes # (auto) 0.27 K/uL (0.11-0.59); Monocytes % (auto) 7.8 %; Neutrophils # (auto) 1.78 K/uL (1.40-6.50); Neutrophils % (auto) 51.8 %; Platelet Count 175 K/uL (130-400); RDW Coefficient of Variation 14.5 % (11.5-14.5); RDW Standard Deviation 46.5 fL (36.4-46.3); White Blood Count 3.44 K/ul (4.8-10.8)
[2023-10-19 04:48] LABS: BUN Creatinine Ratio 15.6 (10-20); Calcium 9.3 mg/dl (8.6-10.3); Chol HDL Ratio 2.8 (0-5); Creatinine Clr Calc Pharmacy 35.5 ml/min; Est GFR (African American) 55.5 ml/min; Est GFR (Non-African American) 47.9 ml/min; Magnesium 1.9 mg/dl (1.7-2.4); Phosphorus 3.7 mg/dl (2.5-4.9); Potassium 3.9 mmol/L (3.5-5.1)
[2023-10-19 05:03] LABS: Thyroid Stimulating Hormone 5.662 uIu/ml (0.300-4.500)
[2023-10-19 05:04] LABS: D Dimer 1380 ug/L FEU (0-500)
[2023-10-19 05:38] LABS: T4 Free Thyroxine 0.87 ng/dl (0.61-1.60)
[2023-10-19] MEDS: LEVOTHYROXINE SODIUM 50 MCG TABLET PO SCH (06:17)
[2023-10-19 06:29] LABS: Folate (Folic Acid),Ser orPlas > 22.30 ng/ml (>5.38)
[2023-10-19 06:30] LABS: Vitamin B12 > 1500 pg/ml (180-914)
[2023-10-19] MEDS: OPTIRAY 320 150ml IV ONE (08:04)
[2023-10-19 08:16] LABS: Estimated Average Glucose 123 mg/dl; Hemoglobin A1C 5.9 % (4.5-5.6)
[2023-10-19] MEDS: CYANOCOBALAMIN (B-12) 500 MCG TABLET PO SCH (08:27)
[2023-10-19] MEDS: CALCIUM CARBONATE 1250MG TAB PO SCH (08:38)
--- NOTE | 2023-10-19 08:43 | CT Scan Report ---
CT angio chest PE protocol CLINICAL HISTORY: PE TECHNIQUE: Multidetector row helical CT of the chest was performed with angiographic protocol. Christianson l and sagittal reformations were obtained. Coronal and sagittal MIPS were obtained from the axial sekou a set and were submitted for review. Automated dose lowering techniques and/or adjustment according to patient size were utilized for this exam. CT DOSE: 633.35 mGy.cm Comparison: Comparison is made to chest radiograph 07/06/2018 FINDINGS: Lungs and pleura: Normal. Heart and pericardium: Heart size is normal. No pericardial effusion. Vessels: No evidence of pulmonary embolism. Mediastinum and thierry: Unremarkable. Chest wall and lower neck: Unremarkable. Abdomen: Hiatal hernia is seen with postsurgical changes of gastric bypass surgery. Bones: Degenerative changes in the thoracic spine. IMPRESSION: No acute abnormality and in particular no evidence of pulmonary embolus. ACT 112: Negative or not required by law. Electronically signed by: Kit Tom M.D. 10/19/2023 8:42 AM
[2023-10-19] MEDS ORDERED: LOSARTAN POTASSIUM 50 MG TAB PO SCH (09:00)
--- NOTE | 2023-10-19 16:10 | Hospitalist Progress Note ---
Date of Service October 19, 2023 Assessment & Plan (1) Acute right MCA stroke: (2) Weakness: Plan #Right MCA infarct c/b left facial droop and left upper arm weakness Patient woke up with facial droop and weakness on left arm MRI with right MCA infarct and chronic lacunar infarct -Recommended plavix single agent therapy when able to take po given history of bypass -ASA loaded rectally -Passed dysphagia screen -Start plavix 75 mg daily -Discontinue home statin for simvastatin 40mg daily Echocardiogram shows EF of 60 to 65%; mild concentric LVH #Right ICA aneurysm 6mm aneurysm right ICA Images pushed to Jimmie, discussed with Jimmie--outpatient follow up with [facility] #HTN Hold to allow permissive HTN #CKD III Cr stable, baseline 1.2-1.3 #HLD: LDL 107, total 207 07/2023 On simvastatin 40 #GERD Endoscopy was normal 06/2023 Continue famotidine daily and well controlled #Prediabetes last A1C check 5.8 in 07/2023 #Hypothyroidism -TSH 4.02 07/21/2023 continue Synthroid 50mcg DVT ppx heparin sq Admit PCU/tele Dispopossibly home tomorrow a.m.; patient hospitalized after acute CVA. Requires close monitoring. Time spent evaluating patient, direct bedside care, chart review, placing orders, interpretation of diagnostic studies, discussion with consultants, patient, and family members, as well as other required patient management activities is 50 minutes Please note the above document was generated using voice recognition software. It may contain grammatical, syntax or spelling errors. Any formal questions or concerns about the content, text or information contained within the body of this dictation should be directly addressed to the provider for clarification Admission and Anticipated Discharge Date Admission Date: October 18, 2023 Subjective Patient seen and examined at bedside She is comfortably lying on the bed; not in distress She denies any new weakness/numbness of any body part She has slurring of speech with facial droop on left side Review of Systems Review of Systems: All systems reviewed & are unremarkable except as noted in Subjective Physical Exam Physical Exam: Constitutional: Alert oriented x 3; not in distress. Respiratory: normal respiratory effort, lungs clear to auscultation, no wheeze, rales, rhonchi. 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 No other weakness/numbness appreciated; strength in lower extremity5/5 Psychiatric: A+Ox3, euthymic affect Results & Data Results & Data Vital Signs (Past 12 Hours) Vital Signs Pulse Pulse Resp BP BP Pulse Ox Pulse Ox 10/19/23 14:27 73 18 117/73 97 10/19/23 14:15 71 23 97 10/19/23 14:06 74 19 96 10/19/23 13:57 75 14 98 10/19/23 13:42 80 20 98 10/19/23 13:33 84 20 95 10/19/23 13:18 80 28 H 99 10/19/23 13:06 79 13 96 10/19/23 12:51 75 16 96 10/19/23 12:30 81 16 98 10/19/23 12:24 75 19 97 10/19/23 12:15 71 14 99 10/19/23 12:06 72 23 99 10/19/23 12:03 72 15 126/84 99 10/19/23 11:42 92 10/19/23 11:36 98 10/19/23 10:39 78 15 96 10/19/23 10:18 68 17 98 10/19/23 10:00 84 21 92 10/19/23 09:36 72 14 99 10/19/23 07:51 68 18 189/99 H 96 10/19/23 07:42 75 16 97 10/19/23 07:30 67 19 95 10/19/23 07:27 69 15 96 10/19/23 07:13 79 10/19/23 06:39 68 20 96 10/19/23 06:27 69 15 97 10/19/23 06:18 68 23 96 10/19/23 06:00 79 28 H 97 10/19/23 05:51 63 20 96 10/19/23 05:42 64 18 95 10/19/23 05:36 65 17 96 10/19/23 05:03 63 18 96 10/19/23 05:00 149/71 H 10/19/23 04:54 61 18 95 10/19/23 04:51 60 17 95 10/19/23 04:42 63 18 96 10/19/23 04:38 96 10/19/23 04:15 63 17 130/68 95 O2 Del Method O2 Del Method 10/19/23 14:27 10/19/23 14:15 10/19/23 14:06 10/19/23 13:57 10/19/23 13:42 10/19/23 13:33 10/19/23 13:18 10/19/23 13:06 10/19/23 12:51 10/19/23 12:30 10/19/23 12:24 10/19/23 12:15 10/19/23 12:06 10/19/23 12:03 Room Air 10/19/23 11:42 10/19/23 11:36 10/19/23 10:39 10/19/23 10:18 10/19/23 10:00 10/19/23 09:36 10/19/23 07:51 10/19/23 07:42 10/19/23 07:30 10/19/23 07:27 10/19/23 07:13 10/19/23 06:39 10/19/23 06:27 10/19/23 06:18 10/19/23 06:00 10/19/23 05:51 10/19/23 05:42 10/19/23 05:36 10/19/23 05:03 10/19/23 05:00 10/19/23 04:54 10/19/23 04:51 10/19/23 04:42 10/19/23 04:38 Room Air 10/19/23 04:15 Room Air
[2023-10-20 07:08] LABS: Basophils # (auto) 0.01 K/uL (0.00-0.20); Basophils % (auto) 0.3 %; Eosinophils # (auto) 0.06 K/uL (0.00-0.50); Eosinophils % (auto) 1.7 %; Hematocrit (blood only) 35.8 % (37.0-47.0); Hemoglobin 11.9 g/dl (12.0-16.0); Immature Granulocytes # (auto) 0.01 K/uL (0.01-0.20); Immature Granulocytes % (auto) 0.3 %; Lymphocytes # (auto) 1.19 K/uL (1.20-3.40); Lymphocytes % (auto) 33.7 %; Mean Corpuscular Hemoglobin 29.5 pg (25.0-34.0); Mean Corpuscular Hgb Conc 33.2 g/dL (32.0-36.0); Mean Corpuscular Volume 88.8 fL (80.0-100.0); Mean Platelet Volume 10.5 fL (9.4-12.4); Monocytes # (auto) 0.39 K/uL (0.11-0.59); Neutrophils # (auto) 1.87 K/uL (1.40-6.50); Platelet Count 171 K/uL (130-400); RDW Coefficient of Variation 14.5 % (11.5-14.5); RDW Standard Deviation 46.5 fL (36.4-46.3); Red Blood Count 4.03 M/uL (4.20-5.40); White Blood Count 3.53 K/ul (4.8-10.8)
[2023-10-20 07:22] LABS: BUN Creatinine Ratio 15.8 (10-20); Calcium 9.2 mg/dl (8.6-10.3); Est GFR (African American) 49.4 ml/min; Est GFR (Non-African American) 42.7 ml/min
--- NOTE | 2023-10-20 10:16 | Pharmacy Report ---
- Date of Service October 20, 2023 - Pharmacy CVA/TIA Medication Review Medications to Prevent Stroke handout has been added to the patients discharge packet. Antiplatelet(s) * Clopidogrel 75 mg PO daily Cholesterol * High intensity statin: rosuvastatin 20 mg daily DVT Prophylaxis * Heparin SQ Therapeutic Anticoagulation * No history of Afib/Aflutter noted Type 2 Diabetes * Patient does not have T2DM
[2023-10-20] MEDS: LOSARTAN POTASSIUM 50 MG TAB PO SCH (11:13)
[2023-10-20] MEDS: STROKE PATIENT DISCHARGE STA ×2 (12:34)
[2023-10-20] MEDS ORDERED: ROSUVASTATIN CALCIUM 20 MG TAB PO SCH ×2 (21:00)
[2023-10-22] MEDS ORDERED: LEVOTHYROXINE SODIUM 25 MCG TABLET PO SCH (06:30)
--- NOTE | 2023-10-22 10:16 | Pharmacy Report ---
Pharmacist Stroke Counseling - Date of Service October 22, 2023 - Scope: Pharmacy has been consulted to provide medication discharge counseling for this patient admitted with ischemic stroke as per the Pharmacist Discharge Counseling for Stroke Patients Protocol. - Medications on Discharge: Home Medications Medication Instructions Recorded Confirmed calcium carbonate (Calcium 600) 600 mg PO QAM 07/06/18 10/18/23 cyanocobalamin (vitamin B-12) 500 2,500 mcg PO QAM 07/06/18 10/18/23 mcg tablet (Vitamin B-12) levothyroxine 50 mcg tablet 50 mcg PO QAM 07/06/18 10/18/23 (Synthroid) losartan 100 mg tablet (Cozaar) 100 mg PO QAM 07/06/18 10/18/23 vit no.95-ferrous 1 tab PO DAILY 07/06/18 10/18/23 fumarate 28 mg-folic acid 800 mcg tablet () polyethylene glycol 3350 17 gram 17 g PO DAILY PRN Constipation 08/17/18 10/18/23 oral powder packet (Miralax) diclofenac sodium 1 % topical gel 1 ea topical UD 10/18/23 10/18/23 famotidine 40 mg tablet 40 mg PO DAILY 10/18/23 10/18/23 magnesium 250 mg tablet 250 mg PO DAILY PRN Other 10/18/23 10/18/23 New Rx's Medication Instructions Recorded clopidogrel 75 mg tablet 75 mg PO QAM #30 tabs 10/20/23 rosuvastatin 20 mg tablet 20 mg PO HS #30 tabs 10/20/23 - Action: The above medications, specifically ones for stroke treatment/prophylaxis, have been reviewed in detail with the patient. This includes indication, common adverse reactions, drug interactions, and medication administration. Medication counseling has been employed using the teach-back method to ensure understanding. - Outcome: The patient has demonstrated understanding of the medications. Additional comments: Patient states no swallowing issues, and eating well. Mouth isn't drooping as much. Seeing PCP today. Thank you for allowing pharmacy to be involved in the care of this patient. Please call [phone] with any additional questions
== END 2023-10-20 12:54 | disposition home or self-care (01) | DRG 66 ==
LOC: ED 08:59 → SUATTDRO 10:43 → EDINP 10:43 → 4W 10-19 22:30